=== PATIENT | male | born 1955 | race Caucasian/White ===

== ENCOUNTER 2017-12-18 05:30 | Emergency (ER) | payer OTHER ==
[~2017-12-18] VITALS: Ht 177.8 cm; Wt 147.4 kg
[~2017-12-18 05:30] MED LIST: AMLO5 PO; ASPI325EC PO; Ceftriaxone2 G1 IV; ENOX40I SC; FURO20 PO; METO25 PO; NAPR500 PO; OXYACE5T PO; POTCHL20ER PO
[2017-12-18 05:54] LABS: BASOPHILS ABSOLUTE AUTO 0.06 K/mm3 (0.00-0.23); BASOPHILS PERCENT AUTO 1 % (0-2); EOSINOPHILS ABSOLUTE AUTO 0.36 K/mm3 (0.00-0.68); EOSINOPHILS PERCENT AUTO 4 % (0-6); Hematocrit 45.7 % (37.0-53.0); Hemoglobin 15.6 g/dL (13.5-17.5); IMMATURE GRAN ABSOLUTE AUTO 0.04 K/mm3 (0.00-0.10); IMMATURE GRAN PERCENT AUTO 1 % (0-1); LYMPHOCYTES ABSOLUTE AUTO 2.58 K/mm3 (0.84-5.20); LYMPHOCYTES PERCENT AUTO 31 % (21-46); MONOCYTES ABSOLUTE AUTO 0.48 K/mm3 (0.16-1.47); MONOCYTES PERCENT AUTO 6 % (4-13); Mean Corpuscular HGB 29.9 pg (26.0-34.0); Mean Corpuscular HGB Conc 34.1 g/dL (31.5-36.5); Mean Corpuscular Volume 88 fL (80-100); Mean Platelet Volume 9.7 fL (9.1-12.4); NEUTROPHILS ABSOLUTE AUTO 4.76 K/mm3 (1.96-9.15); NEUTROPHILS PERCENT AUTO 58 % (41-73); Platelet Count 174 K/mm3 (150-400); RDW Coefficient Variation 13.5 % (11.7-14.2); RDW Standard Deviation 43.5 fL (35.1-46.3); Red Blood Cell Count 5.22 M/mm3 (4.30-5.90); White Blood Cell Count 8.28 K/mm3 (4.00-11.30)
[2017-12-18 06:18] LABS: Alanine Aminotransfer (ALT/SGP 97 U/L (12-78); Albumin, Blood 3.6 g/dL (3.4-5.0); Albumin/Globulin Ratio 0.9 (0.8-1.8); Alk Phos 176 U/L (50-136); Anion Gap 17 mmol/L (6-16); Aspartate Aminotrans (AST/SGOT 145 U/L (12-37); Bilirubin, Total 1.4 mg/dL (0.1-1.0); Blood Urea Nitrogen 13 mg/dL (8-24); Bun/Creatinine Ratio 16.1 (12.0-20.0); CO2, Blood 21 mmol/L (21-32); Calcium, Blood 7.6 mg/dL (8.5-10.1); Chloride, Blood 95 mmol/L (98-108); Creatinine, Blood 0.81 mg/dL (0.60-1.20); Glomerular Filtration Rate >60 (60-); Glucose, Blood 158 mg/dL (70-99); Potassium, Blood 3.3 mmol/L (3.5-5.5); Sodium, Blood 133 mmol/L (136-145); Total Protein, Blood 7.6 g/dL (6.4-8.2); Troponin I <0.015 ng/mL (0.000-0.040)
[2017-12-18 06:54] LABS: Magnesium, Blood 1.7 mg/dL (1.6-2.4)
[2017-12-18] MEDS ORDERED: MAGOXI400 PO (08:27)
[2017-12-18] MEDS ORDERED: VITAMIN D5000 UNI1 PO (08:27)
== END 2017-12-18 08:49 | disposition home or self-care (01) ==
LOC: ER 05:30
PROVIDERS: Emergency Medicine
DX: R07.89 Other chest pain (principal); F10.10 Alcohol abuse, uncomplicated; E55.9 Vitamin D deficiency, unspecified; E61.2 Magnesium deficiency; Z79.899 Other long term (current) drug therapy; I10 Essential (primary) hypertension; Z87.891 Personal history of nicotine dependence
CPT/HCPCS: 36415; 71046; 80053; 82306; 83690; 83735; 84443; 84484; 85025; 93005; 93010; 96361; 96374; 99284; J2060; J7030

== ENCOUNTER → 2021-02-02 | Outpatient (CLI) | payer OTHER | END | disposition home or self-care (01) | LOC: LAB SHORT 10:30 → LAB 10:30 | DX: E78.5 Hyperlipidemia, unspecified (principal); I10 Essential (primary) hypertension; R73.03 Prediabetes; R53.83 Other fatigue | CPT/HCPCS: 36415; 80053; 80061; 83036; 84443; 85025 ==

== ENCOUNTER 2021-03-08 16:17 | Inpatient (IN) | payer OTHER, MEDICARE ==
[~2021-03-08] VITALS: Ht 177.8 cm; Wt 126.9 kg
[~2021-03-08 16:17] MED LIST changes: +MAGOXI400 PO; +VITAMIN D5000 UNI1 PO
[2021-03-08] MEDS ORDERED: Lovastatin20 MG PO (18:24)
[2021-03-08 19:06] LABS: BASOPHILS PERCENT AUTO 1 % (0-2); EOSINOPHILS ABSOLUTE AUTO 0.04 K/mm3 (0.00-0.68); EOSINOPHILS PERCENT AUTO 0 % (0-6); Hematocrit 37.2 % (37.0-53.0); IMMATURE GRAN PERCENT AUTO 2 % (0-1); LYMPHOCYTES ABSOLUTE AUTO 2.11 K/mm3 (0.84-5.20); LYMPHOCYTES PERCENT AUTO 11 % (21-46); MONOCYTES ABSOLUTE AUTO 1.06 K/mm3 (0.16-1.47); MONOCYTES PERCENT AUTO 5 % (4-13); Mean Corpuscular Volume 93 fL (80-100); Mean Platelet Volume 10.8 fL (9.1-12.4); NEUTROPHILS PERCENT AUTO 82 % (41-73); NRBC ABSOLUTE 0.03 K/mm3 (0.00-0.02); NRBC Auto 0.1 /100 WBC (0.0-0.2); Platelet Count 394 K/mm3 (150-400); RDW Coefficient Variation 20.3 % (11.7-14.2); RDW Standard Deviation 65.4 fL (35.1-46.3); Red Blood Cell Count 4.02 M/mm3 (4.30-5.90); White Blood Cell Count 20.01 K/mm3 (4.00-11.30)
[2021-03-08 19:28] LABS: Albumin, Blood 2.1 g/dL (3.4-5.0); Albumin/Globulin Ratio 0.4 (0.8-1.8); Bun/Creatinine Ratio 29.9 (12.0-20.0); Calcium, Blood 6.5 mg/dL (8.5-10.1); Creatinine, Blood 1.54 mg/dL (0.60-1.20); Globulin, Blood 5.3 g/dL (2.2-4.0); Potassium, Blood 2.5 mmol/L (3.5-5.5); Total Protein, Blood 7.4 g/dL (6.4-8.2)
[2021-03-08 19:41] LABS: Magnesium, Blood 1.2 mg/dL (1.6-2.4)
[2021-03-08 19:46] LABS: Mean Corpuscular HGB 31.1 pg (26.0-34.0)
[2021-03-08 19:47] LABS: Mean Corpuscular HGB Conc 33.6 g/dL (31.5-36.5)
[2021-03-08 19:50] LABS: Phosphorus, Blood 2.9 mg/dL (2.5-4.9)
[2021-03-08 20:26] LABS: Creatine Kinase MB 20.4 ng/mL (0.0-3.6); Creatine Kinase MB Index 0.3 (0.0-4.0)
[2021-03-08] MEDS ORDERED: CENTRUM SILVER1 EAC2 PO (20:54)
[2021-03-09 04:35] LABS: Alanine Aminotransfer (ALT/SGP 63 U/L (12-78); Albumin, Blood 1.7 g/dL (3.4-5.0); Albumin/Globulin Ratio 0.4 (0.8-1.8); Alk Phos 197 U/L (50-136); Anion Gap 14 mmol/L (6-16); Aspartate Aminotrans (AST/SGOT 324 U/L (12-37); Bilirubin, Total 19.8 mg/dL (0.1-1.0); Blood Urea Nitrogen 43 mg/dL (8-24); Bun/Creatinine Ratio 37.4 (12.0-20.0); CO2, Blood 24 mmol/L (21-32); CPK Creatine Kinase 4527 U/L (39-308); Calcium, Blood 5.5 mg/dL (8.5-10.1); Chloride, Blood 91 mmol/L (98-108); Creatinine, Blood 1.15 mg/dL (0.60-1.20); Globulin, Blood 4.4 g/dL (2.2-4.0); Glomerular Filtration Rate >60 (60-); Glucose, Blood 93 mg/dL (70-99); Potassium, Blood 2.6 mmol/L (3.5-5.5); Sodium, Blood 129 mmol/L (136-145); Total Protein, Blood 6.1 g/dL (6.4-8.2)
--- NOTE | 2021-03-09 05:12 | NUR ---
MITER SAW OPERATOR SUMMARY NEW ADMIT FROM THE ED TONIGHT. ADMITTED FOR RHABDO, FOUND DOWN AT HOME FOR APPROXIMATELY 2 DAYS. PT AAOX3 AND PLEASANT. FAIRLY GOOD HISTORIAN AND CALLS APPROPRIATELY FOR ASSISTANCE. PT BUTTOCKS, BACK OF LEGS, TIFFANY AREA EXTREMELY EXCORIATED WITH SOME FLAKING/PEELING SKIN. SOME LARGE ABRASIONS/SCABS ON BLE WELL THICK DARK COLORED SKIN. BLUE BARRIER CREAM APPLIED TO ALL AREAS. CRITICAL CALCIUM OF 5.5 THIS AM WELL K+ OF 2.6. RECIEVED ORDER FROM DR KIMBROUGH FOR CALCIUM GLUCONATE AND IV KCL TO GIVE THIS AM. PT LIVES ALONE IN AN APARTMENT. PT ALSO REPORTS BINGE DRINKING OFF AND ON FOR YEARS. PT STATES HE HASN'T DRANK IN "ABOUT 30 DAYS" BUT SAYS THAT HE WILL "DRINK REALLY HARD" FOR A FEW WEEKS AT A TIME UP TO 2 PINTS OF WHISKEY A DAY. PT HAS NOT DISPLAYED ANY SIGNS OF WITHDRAWAL THUS FAR. PT IS VERY JAUNDICED, LFT IMPROVED WITH AM LABS. PT TO HAVE VENOUS DUPLEX OF BLE LATER TODAY. VSS, WILL CONTINUE TO MONITOR.
[2021-03-09 05:46] LABS: BASOPHILS PERCENT AUTO 0 % (0-2); LYMPHOCYTES PERCENT AUTO 14 % (21-46); MONOCYTES ABSOLUTE AUTO 0.21 K/mm3 (0.16-1.47); MONOCYTES PERCENT AUTO 6 % (4-13); Mean Corpuscular Volume 91 fL (80-100); Mean Platelet Volume 11.1 fL (9.1-12.4); NRBC ABSOLUTE 0.02 K/mm3 (0.00-0.02); NRBC Auto 0.6 /100 WBC (0.0-0.2); RDW Coefficient Variation 18.4 % (11.7-14.2); RDW Standard Deviation 58.8 fL (35.1-46.3)
[2021-03-09 05:48] LABS: EOSINOPHILS ABSOLUTE AUTO 0.02 K/mm3 (0.00-0.68); EOSINOPHILS PERCENT AUTO 1 % (0-6); IMMATURE GRAN ABSOLUTE AUTO 0.05 K/mm3 (0.00-0.10); IMMATURE GRAN PERCENT AUTO 1 % (0-1); Mean Corpuscular HGB 34.8 pg (26.0-34.0); NEUTROPHILS ABSOLUTE AUTO 2.75 K/mm3 (1.96-9.15); NEUTROPHILS PERCENT AUTO 78 % (41-73)
[2021-03-09 05:49] LABS: Hematocrit 31.5 % (37.0-53.0); Platelet Count 280 K/mm3 (150-400); Red Blood Cell Count 3.45 M/mm3 (4.30-5.90); White Blood Cell Count 17.65 K/mm3 (4.00-11.30)
[2021-03-09 05:51] LABS: Mean Corpuscular HGB Conc 38.1 g/dL (31.5-36.5)
--- NOTE | 2021-03-09 17:11 | NUR ---
SHIFT SUMMARY PT TURNED FOR COMFORT. HAS SEVERE EXCORIATIONS TO BACKS OF LEGS AND BUTTOCKS WITH MILD AREAS IN GROIN AND SKIN FOLDS. VISITOR IN THIS AFTERNOON FOR SHORT TIME. PT REPEATED THAT HE HASN'T HAD A DRINK IN 30 DAYS. NO OBVIOUS WITHDRAWAL SYMPTOMS NOTED. REPORTED SEVERE ACHES AND PAINS WITH MOVEMENT. NO PAIN WHILE LAYING STILL. RECEIVED ORDER TO TORADOL. PT DOZING AFTER RECEIVING IT.
[2021-03-09 17:35] LABS: International Normalized Ratio 1.38; Prothrombin Time Results 14.6 Sec (9.7-11.5)
[2021-03-09 18:14] LABS: Potassium, Blood 2.5 mmol/L (3.5-5.5)
[2021-03-09 18:26] LABS: Calcium, Blood 5.7 mg/dL (8.5-10.1)
[2021-03-10 03:07] LABS: BASOPHILS ABSOLUTE AUTO 0.01 K/mm3 (0.00-0.23); BASOPHILS PERCENT AUTO 0 % (0-2); EOSINOPHILS PERCENT AUTO 2 % (0-6); IMMATURE GRAN ABSOLUTE AUTO 0.24 K/mm3 (0.00-0.10); IMMATURE GRAN PERCENT AUTO 5 % (0-1); LYMPHOCYTES ABSOLUTE AUTO 0.78 K/mm3 (0.84-5.20); LYMPHOCYTES PERCENT AUTO 15 % (21-46); MONOCYTES ABSOLUTE AUTO 0.31 K/mm3 (0.16-1.47); MONOCYTES PERCENT AUTO 6 % (4-13); Mean Corpuscular HGB 35.3 pg (26.0-34.0); Mean Corpuscular HGB Conc 37.5 g/dL (31.5-36.5); Mean Corpuscular Volume 94 fL (80-100); Mean Platelet Volume 10.7 fL (9.1-12.4); NEUTROPHILS ABSOLUTE AUTO 3.77 K/mm3 (1.96-9.15); NEUTROPHILS PERCENT AUTO 72 % (41-73); NRBC ABSOLUTE 0.03 K/mm3 (0.00-0.02); NRBC Auto 0.6 /100 WBC (0.0-0.2); RDW Coefficient Variation 19.4 % (11.7-14.2); RDW Standard Deviation 63.7 fL (35.1-46.3)
[2021-03-10 03:09] LABS: Hemoglobin 10.8 g/dL (13.5-17.5); Red Blood Cell Count 3.06 M/mm3 (4.30-5.90); White Blood Cell Count 10.42 K/mm3 (4.00-11.30)
[2021-03-10 03:10] LABS: Hematocrit 28.8 % (37.0-53.0); Platelet Count 272 K/mm3 (150-400)
[2021-03-10 03:32] LABS: Albumin, Blood 1.6 g/dL (3.4-5.0); Anion Gap 12 mmol/L (6-16); Blood Urea Nitrogen 32 mg/dL (8-24); Bun/Creatinine Ratio 33.5 (12.0-20.0); CO2, Blood 23 mmol/L (21-32); Calcium, Blood 6.1 mg/dL (8.5-10.1); Chloride, Blood 93 mmol/L (98-108); Creatinine, Blood 0.96 mg/dL (0.60-1.20); Glomerular Filtration Rate >60 (60-); Glucose, Blood 153 mg/dL (70-99); Phosphorus, Blood 1.5 mg/dL (2.5-4.9); Potassium, Blood 2.9 mmol/L (3.5-5.5); Sodium, Blood 128 mmol/L (136-145)
[2021-03-10 04:08] LABS: CPK Creatine Kinase 2329 U/L (39-308)
--- NOTE | 2021-03-10 06:13 | NUR ---
SHIFT SUMMARY PT WEAK AND FATIGUED. SKIN SEVERELY EXCORIATED. IN TIFFANY AREA, BOTTOM, AND THIGHS. BARRIER CREAM APPLIED. BLE SKIN FLAKY AND THICK. WOUNDS SCATTERED THROUGHOUT. FREQUENT REPOSITIONING AND TIFFANY CARE COMPLETED THIS EVENING. URINE IS ORANGE IN COLOR. INCONTINENT. SOME BLEEDING FROM RAW SKIN ON BUTTOCKS, TIFFANY AREA, AND FOLDS. PT'S SKIN IS JAUNDICED. PT SLEPT OFF AND ON THROUGHOUT THE NIGHT. AT START OF SHIFT CALCIUM GLUCONATE AND POTASSIUM CHLORIDE INFUSED PER ORDERS. RECHECK ON CALCIUM AND POTASSIUM WAS 6.1 FOR CALCIUM AND 2.9 FOR POTASSIUM THIS AM. PHOSPHORUS WAS ALSO LOW AT 1.5. NOTIFIED DR. KIMBROUGH. NEW ORDERS FOR KPHOS 20 MM AND ANOTHER DOSE OF 1GM CALCIUM GLUCONATE. BOTH HUNG AND INFUSING AT THIS TIME. PT HAD 1 BM THIS EVENING. INCONTINENT. UNFORMED. VITAL SIGNS STABLE. TELEMETRY READING SR IN THE 60'S. WILL CONTINUE TO MONITOR AND REPORT TO DAY RN.
[2021-03-10 11:27] LABS: Magnesium, Blood 1.2 mg/dL (1.6-2.4)
[2021-03-10 18:10] LABS: Albumin, Blood 1.6 g/dL (3.4-5.0); Anion Gap 11 mmol/L (6-16); Blood Urea Nitrogen 21 mg/dL (8-24); Bun/Creatinine Ratio 27.1 (12.0-20.0); CO2, Blood 21 mmol/L (21-32); Calcium, Blood 6.8 mg/dL (8.5-10.1); Chloride, Blood 98 mmol/L (98-108); Creatinine, Blood 0.77 mg/dL (0.60-1.20); Glomerular Filtration Rate >60 (60-); Glucose, Blood 127 mg/dL (70-99); Phosphorus, Blood 1.4 mg/dL (2.5-4.9); Potassium, Blood 3.5 mmol/L (3.5-5.5); Sodium, Blood 130 mmol/L (136-145)
--- NOTE | 2021-03-10 19:32 | NUR ---
PT HAS BEEN QUITE PLEASANT TODAY. NO C/O PAIN. EXCORIATED BUTOCKS DOWN. FROMNT AND BACK. LEGS THICK SCALEY. ENCOURAGED HIIM TO KEEP DRY AND TURN ON SIDES TO ASSIST IN HEALING. SKIN IS JAUNDICED. I CALLED DR [facility]. ORDRES GIVEN AND PLACED. BED IN LOW POSITION, CALL LITE IN REACH, CALL APPROP
[2021-03-11 05:15] LABS: Hematocrit 27.1 % (37.0-53.0); Hemoglobin 10.1 g/dL (13.5-17.5); Mean Corpuscular HGB 35.2 pg (26.0-34.0); Mean Corpuscular HGB Conc 37.3 g/dL (31.5-36.5); Mean Corpuscular Volume 94 fL (80-100); Mean Platelet Volume 10.4 fL (9.1-12.4); NRBC Auto 1.2 /100 WBC (0.0-0.2); Platelet Count 280 K/mm3 (150-400); RDW Coefficient Variation 20.5 % (11.7-14.2); RDW Standard Deviation 67.3 fL (35.1-46.3); Red Blood Cell Count 2.87 M/mm3 (4.30-5.90); White Blood Cell Count 8.21 K/mm3 (4.00-11.30)
[2021-03-11 05:36] LABS: BAND PERCENT MAN 6 % (0-8); BASOPHILS ABSOLUTE MAN 0.08 K/mm3 (0.00-0.23); BASOPHILS PERCENT MAN 1 % (0-2); EOSINOPHILS ABSOLUTE MAN 0.41 K/mm3 (0.00-0.68); EOSINOPHILS PERCENT MAN 5 % (0-6); LYMPHOCYTES ABSOLUTE MAN 2.38 K/mm3 (0.84-5.20); LYMPHOCYTES PERCENT MAN 29 % (21-46); MONOCYTES ABSOLUTE MAN 0.57 K/mm3 (0.16-1.47); MONOCYTES PERCENT MAN 7 % (4-13); NEUTROPHILS ABSOLUTE MAN 4.76 K/mm3 (1.96-9.15); SEG NEUTROPHILS PERCENT MAN 52 % (41-73); TOTAL CELLS COUNTED 100
[2021-03-11 05:41] LABS: Alanine Aminotransfer (ALT/SGP 52 U/L (12-78); Albumin, Blood 1.8 g/dL (3.4-5.0); Albumin/Globulin Ratio 0.4 (0.8-1.8); Alk Phos 267 U/L (50-136); Anion Gap 10 mmol/L (6-16); Aspartate Aminotrans (AST/SGOT 258 U/L (12-37); Blood Urea Nitrogen 16 mg/dL (8-24); Bun/Creatinine Ratio 22.7 (12.0-20.0); CO2, Blood 25 mmol/L (21-32); Calcium, Blood 6.9 mg/dL (8.5-10.1); Chloride, Blood 95 mmol/L (98-108); Creatinine, Blood 0.71 mg/dL (0.60-1.20); Globulin, Blood 4.1 g/dL (2.2-4.0); Glomerular Filtration Rate >60 (60-); Glucose, Blood 135 mg/dL (70-99); Potassium, Blood 2.8 mmol/L (3.5-5.5); Sodium, Blood 130 mmol/L (136-145); Total Protein, Blood 5.9 g/dL (6.4-8.2)
[2021-03-11 06:19] LABS: Magnesium, Blood 1.6 mg/dL (1.6-2.4)
--- NOTE | 2021-03-11 07:39 | NUR ---
SHIFT SUMMARY A/O, ABLE TO MAKE NEEDS KNOWN. COOPERATIVE WITH CARE. CALLS AND ANSWERS QUESTIONS APPROPRIATELY. NO C/O PAIN/DISCOMFORT. CONDOM CATH IN PLACE; DRAINING TO GRAVITY. GREATLY ENCOURAGE TURNING AND REPOSITIONING; HOWEVER, REALLY ENJOYS SITTING MOSTLY UP CENTERED IN BED. STATES MAKES IT EASIER TO SEE TV. VSS/AFEBRILE. RECIEVED IV HYDRATION T/O NIGHT, ABX AND SUPPLEMENTAL ELECTROLYTES. BED REMAINED IN LOWEST POSITION. CALL LIGHT AND BELONGINGS WITHIN REACH. CONTINUE WITH CURRENT PLAN OF CARE. REPORT GIVEN TO ONCOMING RN.
--- NOTE | 2021-03-11 19:46 | NUR ---
SHIFT SUMMARY: NO ACUTE EVENTS TO REPORT THIS SHIFT. PT A&O; CALM AND COOPERATIVE WITH CARE. IV ABX, ALBUMIN, & LR CONTINUING. REPORT GIVEN TO ONCOMING RN.
[2021-03-12 05:32] LABS: Hematocrit 28.9 % (37.0-53.0); Hemoglobin 10.6 g/dL (13.5-17.5); LYMPHOCYTES ABSOLUTE AUTO 2.08 K/mm3 (0.84-5.20); LYMPHOCYTES PERCENT AUTO 21 % (21-46); MONOCYTES ABSOLUTE AUTO 1.01 K/mm3 (0.16-1.47); MONOCYTES PERCENT AUTO 10 % (4-13); Mean Corpuscular HGB 34.9 pg (26.0-34.0); Mean Corpuscular HGB Conc 36.7 g/dL (31.5-36.5); Mean Corpuscular Volume 95 fL (80-100); Mean Platelet Volume 10.5 fL (9.1-12.4); NRBC ABSOLUTE 0.04 K/mm3 (0.00-0.02); NRBC Auto 0.4 /100 WBC (0.0-0.2); Platelet Count 303 K/mm3 (150-400); RDW Coefficient Variation 21.9 % (11.7-14.2); RDW Standard Deviation 71.8 fL (35.1-46.3); Red Blood Cell Count 3.04 M/mm3 (4.30-5.90); White Blood Cell Count 10.04 K/mm3 (4.00-11.30)
[2021-03-12 05:33] LABS: BASOPHILS ABSOLUTE AUTO 0.04 K/mm3 (0.00-0.23); BASOPHILS PERCENT AUTO 0 % (0-2); EOSINOPHILS ABSOLUTE AUTO 0.31 K/mm3 (0.00-0.68); EOSINOPHILS PERCENT AUTO 3 % (0-6); IMMATURE GRAN ABSOLUTE AUTO 1.01 K/mm3 (0.00-0.10); IMMATURE GRAN PERCENT AUTO 10 % (0-1); NEUTROPHILS ABSOLUTE AUTO 5.59 K/mm3 (1.96-9.15); NEUTROPHILS PERCENT AUTO 56 % (41-73)
[2021-03-12 05:47] LABS: Alanine Aminotransfer (ALT/SGP 42 U/L (12-78); Albumin, Blood 2.1 g/dL (3.4-5.0); Albumin/Globulin Ratio 0.6 (0.8-1.8); Alk Phos 247 U/L (50-136); Anion Gap 9 mmol/L (6-16); Aspartate Aminotrans (AST/SGOT 182 U/L (12-37); Bilirubin, Total 12.8 mg/dL (0.1-1.0); Blood Urea Nitrogen 11 mg/dL (8-24); Bun/Creatinine Ratio 17.1 (12.0-20.0); CO2, Blood 25 mmol/L (21-32); CPK Creatine Kinase 346 U/L (39-308); Calcium, Blood 7.3 mg/dL (8.5-10.1); Chloride, Blood 98 mmol/L (98-108); Creatinine, Blood 0.65 mg/dL (0.60-1.20); Globulin, Blood 3.8 g/dL (2.2-4.0); Glomerular Filtration Rate >60 (60-); Glucose, Blood 134 mg/dL (70-99); Sodium, Blood 132 mmol/L (136-145); Total Protein, Blood 5.9 g/dL (6.4-8.2)
[2021-03-12 05:59] LABS: BAND PERCENT MAN 7 % (0-8); BASOPHILS PERCENT MAN 2 % (0-2); EOSINOPHILS PERCENT MAN 3 % (0-6); LYMPHOCYTES PERCENT MAN 19 % (21-46); METAMYELOCYTE PERCENT MAN 2 % (0-0); MONOCYTES PERCENT MAN 5 % (4-13); MYELOCYTE PERCENT MAN 1 % (0-0); NEUTROPHILS ABSOLUTE MAN 6.72 K/mm3 (1.96-9.15); PROMYELOCYTE PERCENT MAN 1 % (0-0); SEG NEUTROPHILS PERCENT MAN 60 % (41-73); TOTAL CELLS COUNTED 100
--- NOTE | 2021-03-12 06:45 | NUR ---
SHIFT SUMMARY A/O, ABLE TO MAKE NEEDS KNOWN. COOPERATIVE WITH CARE. CALLS AND ANSWERS QUESTIONS APPRORIATELY. NO C/O PAIN/DISCOMFORT OVERNIGHT. CONDOM CATH REMAINS IN PLACE; DRAINING TO GRAVITY. CONTINUE TO REINFORCE TURNING AND REPOSITIONING. APPEARED TO REST MUCH OF THE NIGHT. CONTINUED TO RECIEVE IV HYDRATION T/O NIGHT. BED REMAINED IN LOWEST POSITION. CALL LIGHT AND BELONGINGS WITHIN REACH. CONTINUE WITH CURRENT PLAN OF CARE. REPORT GIVEN TO ONCOMING RN.
[2021-03-12 07:10] LABS: HBSAG SCREEN Negative (Negative); HEP A AB, IGM Negative (Negative); HEP B CORE AB, IGM Negative (Negative); HEP B CORE AB, TOT Negative (Negative); HEP C VIRUS AB <0.1 (0.0-0.9)
[2021-03-12 12:09] LABS: SARS-Cov-2 (COVID-19) PCR, MMC NEGATIVE (NEGATIVE)
[2021-03-12] MEDS ORDERED: FOLI1 PO (14:30)
[2021-03-12] MEDS ORDERED: POTCHL20ER PO ×2 (14:31→14:32)
[2021-03-12] MEDS ORDERED: B-1100 M1 PO (14:32)
[2021-03-12] MEDS ORDERED: MAGNESIUM OXID500 MG PO (14:33)
[2021-03-12] MEDS ORDERED: CEPH500 PO (14:33)
[2021-03-12] MEDS ORDERED: CALCIUM 600 +1 EA11 PO (14:33)
--- NOTE | 2021-03-12 18:47 | NUR ---
PATIENT DISCHARGE: PATIENT DISCHARGED FACILITY XFR () THIS SHIFT. MEDICATION RECONCILIATION COMPLETED; MED LIST PROVIDED IN XFR PACKET. PATIENT DEPARTED MEDICAL FLOOR VIA AMBULANCE c WHEELCHAIR AT 1559. REPORT CALLED TO [facility].
== END 2021-03-12 15:58 | DRG 872 ==
LOC: ER 16:17 → ERHOLD 20:22 → MEDS 20:22 → ENPENDDIS 03-12 13:08 → MEDS 03-12 15:58
PROVIDERS: Emergency Medicine; Student in an Organized Health Care Education/Training Program; ADMIT Family Medicine
DX: A41.9 Sepsis, unspecified organism (principal); M62.82 Rhabdomyolysis; Z68.41 Body mass index [BMI] 40.0-44.9, adult; N17.9 Acute kidney failure, unspecified; L03.115 Cellulitis of right lower limb; L03.116 Cellulitis of left lower limb; E87.1 Hypo-osmolality and hyponatremia; E87.2 Acidosis; R65.20 Severe sepsis without septic shock; K70.10 Alcoholic hepatitis without ascites; Z20.822 Contact with and (suspected) exposure to COVID-19; I10 Essential (primary) hypertension; M19.90 Unspecified osteoarthritis, unspecified site; M54.5 Low back pain; E66.01 Morbid (severe) obesity due to excess calories; E86.0 Dehydration; E87.6 Hypokalemia; E83.42 Hypomagnesemia; I87.2 Venous insufficiency (chronic) (peripheral); E83.51 Hypocalcemia; Z96.641 Presence of right artificial hip joint; Z98.890 Other specified postprocedural states; Z79.899 Other long term (current) drug therapy
CPT/HCPCS: 36415; 71045; 76705; 80053; 80069; 80074; 82140; 82310; 82330; 82550; 82553; 83605; 83690; 83735; 84100; 84132; 84145; 85025; 85610; 85730; 86317; 86704; 86708; 86803; 87040; 87340; 93005; 93010; 93970; 96365; 97110; 97162; 97166; 97530; 97535; 99285-25; A9270; G0480; J0610; J0690; J1650; J1885; J3475; J3480; J7030; J7060; J7120; P9046; U0004

== ENCOUNTER 2021-04-02 16:48 | Inpatient (IN) | payer OTHER ==
[~2021-04-02] VITALS: Ht 177.8 cm; Wt 139.0 kg
[~2021-04-02 16:48] MED LIST changes: +B-1100 M1 PO; +CALCIUM 600 +1 EA11 PO; +CENTRUM SILVER1 EAC2 PO; +CEPH500 PO; +FOLI1 PO; +Lovastatin20 MG PO; +MAGNESIUM OXID500 MG PO
[2021-04-02 17:48] LABS: BASOPHILS PERCENT AUTO 1 % (0-2); EOSINOPHILS PERCENT AUTO 0 % (0-6); Hematocrit 34.3 % (37.0-53.0); Hemoglobin 11.7 g/dL (13.5-17.5); IMMATURE GRAN PERCENT AUTO 1 % (0-1); LYMPHOCYTES ABSOLUTE AUTO 1.54 K/mm3 (0.84-5.20); LYMPHOCYTES PERCENT AUTO 10 % (21-46); MONOCYTES ABSOLUTE AUTO 0.81 K/mm3 (0.16-1.47); MONOCYTES PERCENT AUTO 5 % (4-13); Mean Corpuscular HGB 36.8 pg (26.0-34.0); Mean Corpuscular HGB Conc 34.1 g/dL (31.5-36.5); Mean Corpuscular Volume 108 fL (80-100); Mean Platelet Volume 9.8 fL (9.1-12.4); NEUTROPHILS ABSOLUTE AUTO 13.06 K/mm3 (1.96-9.15); NEUTROPHILS PERCENT AUTO 84 % (41-73); Platelet Count 347 K/mm3 (150-400); RDW Coefficient Variation 15.8 % (11.7-14.2); RDW Standard Deviation 62.9 fL (35.1-46.3); Red Blood Cell Count 3.18 M/mm3 (4.30-5.90); White Blood Cell Count 15.61 K/mm3 (4.00-11.30)
[2021-04-02 18:13] LABS: Alanine Aminotransfer (ALT/SGP 46 U/L (12-78); Albumin, Blood 2.5 g/dL (3.4-5.0); Albumin/Globulin Ratio 0.5 (0.8-1.8); Alk Phos 204 U/L (50-136); Anion Gap 20 mmol/L (6-16); Aspartate Aminotrans (AST/SGOT 103 U/L (12-37); Bilirubin, Total 2.7 mg/dL (0.1-1.0); Blood Urea Nitrogen 4 mg/dL (8-24); Bun/Creatinine Ratio 5.2 (12.0-20.0); CO2, Blood 14 mmol/L (21-32); Calcium, Blood 8.1 mg/dL (8.5-10.1); Chloride, Blood 108 mmol/L (98-108); Creatinine, Blood 0.76 mg/dL (0.60-1.20); Glomerular Filtration Rate >60 (60-); Glucose, Blood 324 mg/dL (70-99); Potassium, Blood 2.6 mmol/L (3.5-5.5); Sodium, Blood 142 mmol/L (136-145); Total Protein, Blood 7.5 g/dL (6.4-8.2); Troponin I 0.118 ng/mL (0.000-0.040)
[2021-04-02 18:14] LABS: Creatine Kinase MB 11.1 ng/mL (0.0-3.6); Creatine Kinase MB Index 1.7 (0.0-4.0)
[2021-04-02 18:18] LABS: Source, Urine Clean Catch
[2021-04-02 18:19] LABS: International Normalized Ratio 1.24; Prothrombin Time Results 13.2 Sec (9.7-11.5)
[2021-04-02 18:21] LABS: Magnesium, Blood 1.1 mg/dL (1.6-2.4); Phosphorus, Blood 2.4 mg/dL (2.5-4.9)
[2021-04-02 18:30] LABS: Appearance, Urine Clear (Clear); Bilirubin, Urine Neg (Neg); Blood, Urine 3+ (Neg); Color, Urine Yellow (P-Yellow); Glucose Qualitative, Urine 3+ (Neg); Ketones, Urine Neg (Neg); Leukocyte Esterase, Urine Neg (Neg); Nitrite, Urine Neg (Neg); Protein, Urine 1+ (Neg); Urobilinogen, Urine NORM (Normal)
[2021-04-02 18:41] LABS: Bacteria Few /hpf; Red Blood Cells, Urine 0-2 /hpf (0-2); Squamous Epithelial Cells Rare /hpf (Few); White Blood Cells, Urine Rare /hpf (0-5)
[2021-04-02 18:44] LABS: U Amphetamine Screen Not Detected; U Barbituate Screen Not Detected; U Benzodiazapine Screen Not Detected; U Buprenorphine Screen Not Detected; U Cannabinoids Screen Not Detected; U Cocaine Screen Not Detected; U Methadone Screen Not Detected; U Methamphetamine Screen Not Detected; U Opiates Screen Not Detected; U Oxycodone Screen Not Detected; U Phencyclidine Screen Not Detected; U Propoxyphene Screen Not Detected
[2021-04-02] MEDS ORDERED: DILT120ERA PO (19:44)
--- NOTE | 2021-04-02 22:25 | NUR ---
PT HERE VIA [facility] FROM ER. PT IS ALERT AND ORIENTED. TRANSFERRED PT TO PCU BED WITH SLIDER SHEET AND MULTIPLE STAFF. PT IS MORBIDLY OBESE. PT REPORTS HE HAD BEEN DOWN ON THE GROUND FOR APPX 24 HOURS. PT GIVEN PARTIAL BED BATH PT HAD DIRT AND DEBRIS ON HIS BODY. PT IS ANXIOUS, REPORTS DUE TO MULTIPLE STAFF IN THE ROOM - EXPLAINED EACH PROCESS TO PT IN AN ATTEMPT TO DECREASE HIS ANXIETY. PT DENIES CHEST PAIN, SOB, NAUSEA, OR HEADACHE. PT IS ON RA. 1 FIELD START IV TO RAC, 20G TO LAC, BOTH WNL. REVIEWED CALL LIGHT, SAFETY MEASURES. SEE WOUND PICTURES IN CHART. FLUIDS AT BEDSIDE. JAUNDICE SKIN, AND SCLERA.
[2021-04-03 03:32] LABS: Hematocrit 30.7 % (37.0-53.0); Hemoglobin 10.5 g/dL (13.5-17.5)
[2021-04-03 03:52] LABS: Alanine Aminotransfer (ALT/SGP 42 U/L (12-78); Albumin, Blood 2.3 g/dL (3.4-5.0); Albumin/Globulin Ratio 0.5 (0.8-1.8); Alk Phos 187 U/L (50-136); Anion Gap 16 mmol/L (6-16); Aspartate Aminotrans (AST/SGOT 90 U/L (12-37); Blood Urea Nitrogen 2 mg/dL (8-24); Bun/Creatinine Ratio 3.7 (12.0-20.0); CO2, Blood 17 mmol/L (21-32); Calcium, Blood 7.4 mg/dL (8.5-10.1); Chloride, Blood 102 mmol/L (98-108); Creatinine, Blood 0.54 mg/dL (0.60-1.20); Globulin, Blood 4.5 g/dL (2.2-4.0); Glomerular Filtration Rate >60 (60-); Glucose, Blood 272 mg/dL (70-99); Sodium, Blood 135 mmol/L (136-145); Total Protein, Blood 6.8 g/dL (6.4-8.2)
--- NOTE | 2021-04-03 06:11 | NUR ---
SHIFT SUMMARY - PT HAS BEEN CALLING MULTIPLE TIMES THROUGHOUT THE NIGHT. OCCASIONALLY PT FORGETS WHY HE CALLED WHEN STAFF ENTER. MOST OF THE TIME, PT IS REQUESTING USE OF THE BEDPAN FOR A BM - SEVERAL TIMES WITHOUT SUCCESS, AND REQUEST FOR HOLDING THE URINAL FOR HIM. PT'S HEART RATE TRENDED DOWN AFTER THE METOPROLOL IV GIVEN X1. CIWA WNL X1. PT TOLERATED PO FLUIDS AND SNACKS GIVEN THROUGHOUT THE NIGHT. IV INFUSING WITH LR AT 125 TO LEFT AC IV SITE WITHOUT COMPLICATIONS. PT RECEIVED POTASSIUM IV TO HIS RIGHT PIV SITE - DENIED PAIN OR COMPLICATIONS. FLUIDS AT BEDSIDE. CALL LIGHT WITHIN REACH. BED IN LOW POSITION.
--- NOTE | 2021-04-03 09:07 | NUR ---
PHYSICAN ROUNDS DR JAMES MET WITH THE PATIENT THIS MORNING AND DISCUSSED HIS ALCOHOL USE AND HISTORY WELL COMPLETED AN ASSESSMENT. PT REPORTED DRINKING A 5TH OF WHISKEY DAILY SINCE [employer]. PT HAS AGREED TO LOOK OVER THE OPTIONS FOR REHAB THAT ARE AVAILABLE WITH SOCIAL WORK; DR. JAMES STATED HE WOULD HAVE SOCIAL WORK PREPARE SOME RESOURCES FOR THE PT
[2021-04-03 11:25] LABS: BASOPHILS ABSOLUTE AUTO 0.08 K/mm3 (0.00-0.23); BASOPHILS PERCENT AUTO 1 % (0-2); EOSINOPHILS ABSOLUTE AUTO 0.14 K/mm3 (0.00-0.68); EOSINOPHILS PERCENT AUTO 2 % (0-6); Hematocrit 30.6 % (37.0-53.0); Hemoglobin 10.6 g/dL (13.5-17.5); IMMATURE GRAN ABSOLUTE AUTO 0.02 K/mm3 (0.00-0.10); IMMATURE GRAN PERCENT AUTO 0 % (0-1); LYMPHOCYTES ABSOLUTE AUTO 1.95 K/mm3 (0.84-5.20); LYMPHOCYTES PERCENT AUTO 21 % (21-46); MONOCYTES ABSOLUTE AUTO 0.57 K/mm3 (0.16-1.47); MONOCYTES PERCENT AUTO 6 % (4-13); Mean Corpuscular HGB 36.4 pg (26.0-34.0); Mean Corpuscular HGB Conc 34.6 g/dL (31.5-36.5); Mean Corpuscular Volume 105 fL (80-100); Mean Platelet Volume 9.8 fL (9.1-12.4); NEUTROPHILS ABSOLUTE AUTO 6.76 K/mm3 (1.96-9.15); NEUTROPHILS PERCENT AUTO 71 % (41-73); Platelet Count 242 K/mm3 (150-400); RDW Coefficient Variation 15.1 % (11.7-14.2); RDW Standard Deviation 58.1 fL (35.1-46.3); Red Blood Cell Count 2.91 M/mm3 (4.30-5.90); White Blood Cell Count 9.52 K/mm3 (4.00-11.30)
[2021-04-03 13:23] LABS: Magnesium, Blood 1.3 mg/dL (1.6-2.4); Potassium, Blood 3.3 mmol/L (3.5-5.5)
--- NOTE | 2021-04-03 17:46 | NUR ---
SHIFT SUMMARY PT HAS BEEN COOPERATIVE TODAY. PT HAS BEEN IN STABLE ALCOHOL WITHDRAWAL, SYMPTOMS RANGING FROM MILD HEADACHE, NAUSEA, TREMORS AND ANXIETY. PT HAS BEEN MEDICATED PER EMAR. PT REPORTS FEELING BETTER THIS EVENING THAN HE DID LATE MORNING TODAY. PT HAS STRUGGLED TO USE THE URINAL INDEPENDENTLY BUT IS CONTINENT WITH BOTH URINE AND STOOL. PT HAS HAD A FULL LINEN CHANGE AND BED BATH TODAY. PT'S MAG AND K+ ARE STILL LOW AND REPLACEMENT HAS BEEN GIVEN TODAY WITH REDRAWS SCHEDULED. PT CONTINUES TO RECEIVE IV FLUIDS. PT HAS REDNESS BLISTERING AND OPEN WOUNDS BLE, PICTURES HAVE BEEN TAKE, THEY HAVE BEEN MARKED, AND DRESSED WITH WOUND CARE ORDERS ADDED IN. VS STABLE, PT ON RA. PT IS HAVING DINNER AT THIS TIME
--- NOTE | 2021-04-03 20:26 | NUR ---
ASSUMED CARE PT IS ALERT AND ORIENTED. BP AND HR ARE ELEVATED. PT DENIES CHEST PAIN OR SOB. PT ON ROOM AIR WITH SATS ABOVE 93%. PT USING URINAL AT BEDSIDE. CIWA OF 7. CALL LIGHT IS WITHIN REACH. WILL CONTINUE TO MONITOR.
[2021-04-04 03:54] LABS: BASOPHILS ABSOLUTE AUTO 0.05 K/mm3 (0.00-0.23); BASOPHILS PERCENT AUTO 1 % (0-2); EOSINOPHILS ABSOLUTE AUTO 0.36 K/mm3 (0.00-0.68); EOSINOPHILS PERCENT AUTO 4 % (0-6); Hematocrit 29.5 % (37.0-53.0); Hemoglobin 10.2 g/dL (13.5-17.5); IMMATURE GRAN ABSOLUTE AUTO 0.04 K/mm3 (0.00-0.10); IMMATURE GRAN PERCENT AUTO 0 % (0-1); LYMPHOCYTES ABSOLUTE AUTO 1.81 K/mm3 (0.84-5.20); LYMPHOCYTES PERCENT AUTO 18 % (21-46); MONOCYTES ABSOLUTE AUTO 0.59 K/mm3 (0.16-1.47); MONOCYTES PERCENT AUTO 6 % (4-13); Mean Corpuscular HGB 36.4 pg (26.0-34.0); Mean Corpuscular HGB Conc 34.6 g/dL (31.5-36.5); Mean Corpuscular Volume 105 fL (80-100); NEUTROPHILS ABSOLUTE AUTO 7.03 K/mm3 (1.96-9.15); NEUTROPHILS PERCENT AUTO 71 % (41-73); Platelet Count 224 K/mm3 (150-400); RDW Standard Deviation 58.4 fL (35.1-46.3); White Blood Cell Count 9.88 K/mm3 (4.00-11.30)
[2021-04-04 04:25] LABS: Alanine Aminotransfer (ALT/SGP 36 U/L (12-78); Albumin, Blood 2.2 g/dL (3.4-5.0); Albumin/Globulin Ratio 0.5 (0.8-1.8); Alk Phos 189 U/L (50-136); Anion Gap 7 mmol/L (6-16); Aspartate Aminotrans (AST/SGOT 76 U/L (12-37); Blood Urea Nitrogen 3 mg/dL (8-24); Bun/Creatinine Ratio 4.3 (12.0-20.0); CO2, Blood 24 mmol/L (21-32); Calcium, Blood 7.7 mg/dL (8.5-10.1); Chloride, Blood 105 mmol/L (98-108); Globulin, Blood 4.5 g/dL (2.2-4.0); Glomerular Filtration Rate >60 (60-); Glucose, Blood 159 mg/dL (70-99); Magnesium, Blood 1.4 mg/dL (1.6-2.4); Potassium, Blood 3.6 mmol/L (3.5-5.5); Sodium, Blood 136 mmol/L (136-145); Total Protein, Blood 6.7 g/dL (6.4-8.2)
--- NOTE | 2021-04-04 05:50 | NUR ---
CALLED DR ESPINAL REGARDING PT MAG OF 1.4. WILL PUT IN ORDERS.
--- NOTE | 2021-04-04 06:41 | NUR ---
SHIFT SUMMARY PT HAS BEEN ALERT. PT BP AND HEART RATE HAVE BEEN ELEVATED T/O NIGHT. ON ROOM AIR WITH SATS ABOVE 92%. PT DENIES CHEST PAIN OF SOB. PT HAS BEEN VERY RESTLESS AND ANXIOUS T/O NIGHT. PT STATES THAT HE HAS BEEN HAVING "WEIRD DREAMS FROM ANOTHER WORLD." IN THE DREAMS HE WAS TOLD TO TAKE EVERYTHING OFF AND HE DISROBED. PT HAS HAD SOME AGITATION ABOUT BED, WIRES AND TUBES AND THE USE OF A URINAL. PT'S CIWAS HAVE RANGED FROM 7-16. HE HAS BEEN MEDICATED PER EMAR. PT STS THAT HIS ARMS ARE VERY WEAK THEREFORE HE IS A MAX ASSIST FOR ROLLING AND REPOSITIONING. PT HAS WOUNDS THAT ARE IN FILE.
--- NOTE | 2021-04-04 09:56 | NUR ---
0745-UPON ENTERING THE ROOM PT BREATHING HEAVY, WORK OF BREATHING LABORED, WITH ACCESSORY MUSCLE USE AND SUBSTERNAL RETRACTIONS. ORAL SUCTIONING PERFORMED, DEEP SUCTIONING PERFORMED WITH LIMITED RESPONSE FORM PATIENT, ORAL CARE DONE WITH RETURN OF FOOD PARTICLES. ASKED IF HE WAS HUNGRY, HE SAID NO. ASKED IF HE HAD HEADACHE, NO. ASKED IF HE WAS NAUSEATED, YES. CONDOM CATH IN PLACE WITH GOOD RETURN, LEGS WRAPPED IN DRESSINGS FROM WOUND CARE YESTERDAY. 0830-INTO ROOM WITH TRISTA FINK PT ASKING ABOUT EATING THE OATMEAL, ATTEMPTS MADE TO EAT. HE IS MORE ALERT, ANSWERING QUESTIONS. ASKED ABOUT HALLUCINATIONS, DENIES ANY FURTHER SINCE THE MORNING. 0900- IN ROOM WITH PT RESPONDING MUCH IMPROVED, ASKING QUESTIONS, ANSWERING QUESTIONS. LOOKING FOR TV REMOTE. ASKING FOR LEGS TO BE COVERED. STATES AGAIN THAT HE FELT LIKE "IT WAS GOING TO BE A SHIT SHOW", BUT DENIES ANY FURTHER HALLUCINATIONS.
--- NOTE | 2021-04-04 11:32 | NUR ---
ANU IS ALERT AND COOPERATIVE, HE IS APPROPRIATE. HE SEEMS TO BE WORKING SO HARD TO BREATHE. HE SAID THAT HE FEELS THAT WAY WELL. HIS OXYGEN SATS ARE GOOD. WILL CONTINUE TO MONITOR.
--- NOTE | 2021-04-04 12:26 | NUR ---
CALL IN TO AT 1150 RE: PT'S BREATHING/WORK OF BREATHING. SHE ORDERED RT TO EVALUATE AND GIVE A DUO NEB. DUO NEB GIVEN BY RT BETTY. AUDIBLE WHEEZES AND RESP.RATE IN THE 30'S. PT TOLERATED THE TREATMENT WELL. HE WAS ABLE TO COUGH AND BREATHE A BIT SLOWER. AUDIBLE WHEEZES STILL HEARD, PT TRYING TO FEED SELF. HE IS ASKING WHY HE IS "SLOW". HE COMPLAINS ABOUT HIS HAND/EYE COORDINATION BEING OFF. HE REFUSES MY HELP FOR EATING.
--- NOTE | 2021-04-04 12:48 | NUR ---
PT FINALLY RESORTED TO LETTING ME HELP HIM EAT HIS LUNCH. HE ASKED ME IF HE HAS ALZHEIMER'S. I TOLD HIM THAT WE ARE CONCERNED FOR HIS ALCOHOL WITHDRAWAL, HE NODDED IN AGREEMENT. I ASKED HIM IF HE THOUGHT HE WAS EXPERIENCING ALZHEIMER'S. HE SAID THAT HE JUST WANTS TO KNOW WHY HE IS SO "LOW". HE STRUGGLED WITH GETTING HIS HAND TO HOLD THE UTENSILS, WELL KEEPING THE FOOD ON THE UTENSIL, THEN REACHING HIS MOUTH WITH THE FOOD BEFORE LOSING IT ON TO HIS CHEST. BY THE TIME WE FINISHED EATING HE WAS DRIFTING OFF TO SLEEP BETWEEN BITES. HE CONTINUES TO WORK HARD TO BREATHE, SEEMS TO BE SLIGHTLY BETTER AFTER THE DUONEB.
--- NOTE | 2021-04-04 18:30 | NUR ---
UPDATE: THIS RN CALLED DR. WADE TO GIVE AN UPDATE ON PATIENTS RESPIRATORY STATUS. PT IS VERY DYSPNEC AT REST, IS ONLY ABLE TO SPEAK 1-2 WORDS AND THEN HAVING TO BREATHE IN. HE IS USING ACCESSORY MUSCLES FOR BREATHING. BIOX IS WNL ON RA. DR. WADE ORDERED SLIGHT DECREASE IN IVF DOWN TO 100 ML/HR AND A C-PAP/BI-PAP PROTOCOL.
--- NOTE | 2021-04-04 19:24 | NUR ---
ANU HAS DONE WELL THIS SHIFT, HIS MENTATION HAS BECOME MORE CLEAR THROUGHOUT THE DAY. HE HAS BETTER COLOR AND IS MORE INVOLVED IN HIS CARE. HIS BREATHING CONTINUES TO BE LABORED, FULL OF EFFORT. LESS SUBCOSTAL BREATHING, CONTINUES WITH AUDIBLE WHEEZES. DENIES ANY DIFFICULTY. HIS IV FLUIDS CONTINUED THROUGHOUT THE SHIFT, CONDOM CATH IN PLACE WITHOUT ANY INCIDENT. LEG WOUNDS DRESSED WITH COBAN. ABRASIONS PRESENT ON ELBOWS AND KNEES. ABDOMEN WITH FOLLICULITIS. ATTEMPTS BY THIS RN AND BY PATIENT TO MAKE IT BETTER WITH THE ALOE, DIDN'T SEEM TO HELP. PT CONTINUES WITH DIFFICULTY WITH HAND/EYE COORDINATION AND LET ME FEED HIM.
--- NOTE | 2021-04-04 19:27 | NUR ---
ASSUMED PT CARE FROM STONEY HATHAWAY PT LYING IN BED. STONEY ROWLEY AT BEDSIDE PERFORMING WOUND CARE TO BLE'S. PT IS ALERT AND ORIENTED X3; SLOW TO RESPOND. PT NOTED TO HAVE AUDIBLE WHEEZES WHILE LYING IN BED. EXPIRATORY WHEEZES NOTED TO BILATERAL UPPER LOBES, CLEAR LUNG SOUNDS TO BILATERAL LOWER LOBES. RR 26. HR IRREGULAR 110-130'S; PER BECK OPERATOR RHYTHM IS NSR WITH PAC'S; HOWEVER, WITH THE IRREGULARITY OF HR IT APPEARS HE MAY BE IN AFIB WITH RVR. LR INFUSING AT 100MLS/HR; HOWEVER, D/T AUDIBLE WHEEZING AND WORK OF BREATHING PLACED ON STANDBY UNTIL I CAN OBTAIN FURTHER ORDERS REGARDING RESPIRATORY STATUS. PER REPORT RT IS AWARE OF CPAP/BIPAP PROTOCOL. PT APPEARS VERY EDEMATOUS T/O. CONDOM CATH IN PLACE WITH DARK SUZE COLORED URINE. SBP IS 130'S. SPO2 AT 96% ON RA. TEMP 100.2. PT DENIES PAIN AT THIS TIME. BLE'S HAVE VERY LEATHERY TYPE SKIN WITH SCATTERED OPEN AREAS SECONDARY TO CELLULITIS. ABDOMEN HAS A LARGE RASH THAT IS HOT TO THE TOUCH. PT IS RECEIVING ROCEPHIN SECONDARY TO CELLULITIS. WILL CONTINUE TO MONITOR.
--- NOTE | 2021-04-04 20:49 | NUR ---
CALL OUT TO [facility]OWER UPDATED REGARDING RESPIRATORY STATUS WITH IV FLUIDS STILL INFUSING AT 100MLS/HR. NEW ORDERS FOR CXR TO ASSESS FOR VOLUME OVERLOAD. CONTINUE IV FLUIDS UNTIL HE LOOKS OVER CXR.
--- NOTE | 2021-04-05 01:39 | NUR ---
UPDATE PT WOKE UP AGITATED AND PULLING ON THINGS. STATED PEOPLE WERE RUMMAGING THROUGH HIS THINGS AND SHOVING BLANKETS IN BAGS. PT DENIES AUDITORY HALLUCINATIONS. PT FEELS HOT TO THE TOUCH. BEAD OF SWEAT TO FOREHEAD. TREMORS WITH ARMS EXTENDED. PT DENIES N/V AND HEADACHE. STATES HE FEELS MILDLY ANXIOUS. PT REMOVED CPAP MASK AND STATED HE DIDN'T ASK FOR THAT TO BE PUT ON. PT INFORMED THAT IT WAS PLACED EARLIER AND HE HAS BEEN TOLERATING IT ALL SHIFT. PT STATES THAT WAS BECAUSE HE WAS SLEEPING. INFORMED PT THAT THE PURPOSE OF THE MASK/CPAP WAS FOR WHEN HE WAS SLEEPING. CIWA SCORE OF 14. MEDICATED WITH 50MG OF LIBRIUM AND 2MG OF ATIVAN.
--- NOTE | 2021-04-05 04:42 | NUR ---
END OF SHIFT SUMMARY CIWA SCORES BETWEEN 8-14 THIS SHIFT. MEDICATED WITH A TOTAL OF 50MG OF LIBRIUM AND 6MG OF ATIVAN. SEE PREVIOUS NOTE REGARDING PT WAKING UP AGITATED. RESPIRATORY PATTERN APPEARED IMPROVED AFTER HE WAS COMPLIANT WITH WEARING CPAP; HOWEVER, SECOND HALF OF SHIFT PT DID NOT TOLERATE AND REFUSED TO WEAR IT. HE DID REQUIRE 2L OF OXYGEN D/T OXYGEN SATURATIONS DROPPING TO 82% ON RA. AFTER PT REMOVED CPAP HE HAD AUDIBLE WHEEZING NOTED AGAIN. RR >20 ALL SHIFT. VSS, SEE FLOWSHEET. PT REQUIRES A LOT OF ENCOURAGEMENT FOR REPOSITIONING. LR CONTINUES TO INFUSE AT 100ML/HR. WILL CONTINUE TO MONITOR UNTIL REPORT IS HANDED OFF TO ONCOMING RN.
[2021-04-05 08:41] LABS: Albumin, Blood 2.2 g/dL (3.4-5.0); Anion Gap 6 mmol/L (6-16); Blood Urea Nitrogen 4 mg/dL (8-24); Bun/Creatinine Ratio 6.1 (12.0-20.0); CO2, Blood 27 mmol/L (21-32); Calcium, Blood 7.9 mg/dL (8.5-10.1); Chloride, Blood 107 mmol/L (98-108); Creatinine, Blood 0.66 mg/dL (0.60-1.20); Glomerular Filtration Rate >60 (60-); Glucose, Blood 144 mg/dL (70-99); Phosphorus, Blood 3.4 mg/dL (2.5-4.9); Potassium, Blood 3.6 mmol/L (3.5-5.5); Sodium, Blood 140 mmol/L (136-145)
[2021-04-05 08:50] LABS: BASOPHILS ABSOLUTE AUTO 0.04 K/mm3 (0.00-0.23); BASOPHILS PERCENT AUTO 1 % (0-2); EOSINOPHILS ABSOLUTE AUTO 0.41 K/mm3 (0.00-0.68); EOSINOPHILS PERCENT AUTO 6 % (0-6); Hematocrit 32.2 % (37.0-53.0); Hemoglobin 10.6 g/dL (13.5-17.5); IMMATURE GRAN ABSOLUTE AUTO 0.05 K/mm3 (0.00-0.10); IMMATURE GRAN PERCENT AUTO 1 % (0-1); LYMPHOCYTES PERCENT AUTO 26 % (21-46); MONOCYTES ABSOLUTE AUTO 0.49 K/mm3 (0.16-1.47); MONOCYTES PERCENT AUTO 7 % (4-13); Mean Corpuscular HGB 36.3 pg (26.0-34.0); Mean Corpuscular HGB Conc 32.9 g/dL (31.5-36.5); Mean Platelet Volume 9.9 fL (9.1-12.4); NEUTROPHILS ABSOLUTE AUTO 4.39 K/mm3 (1.96-9.15); NEUTROPHILS PERCENT AUTO 60 % (41-73); Platelet Count 203 K/mm3 (150-400); RDW Coefficient Variation 15.1 % (11.7-14.2); RDW Standard Deviation 61.3 fL (35.1-46.3); Red Blood Cell Count 2.92 M/mm3 (4.30-5.90); White Blood Cell Count 7.28 K/mm3 (4.00-11.30)
[2021-04-05 08:53] LABS: Mean Corpuscular Volume 110 fL (80-100)
--- NOTE | 2021-04-05 17:40 | NUR ---
SHIFT SUMMARY; ASSUMED CARE AT 0700, REPORT FROM STONEY SEPULVEDA. PERIODICALLY CONFUSED DURING SHIFT DUE TO ETOH WITHDRAWL. CIWA ORDERS IN PLACE. MEDICATED PER EMAR. WEAKNESS TO ARMS AND LEGS, SLIGHT TREMOR FELT IN HANDS. BLE WOUND CARE COMPLETE YESTERDAY. UNWRAPPED AND REWRAPPED BY FILM MOUNTER FOR DOCTOR ASSESMENT. REDNESS IMPROVED, CAP REFILL <3, PEDAL PULSE PALPABLE BILATERALLY. Q2 REPOSITIONING THROUGHOUT SHIFT AND MEAL ASSISTANCE NEEDED. A/A/OX3. 2L O2 VIA NC AND CPAP WHILE ASLEEP. CONDOM CATH IN PLACE DRAINING CLEAR YELLOW URINE. BED BATH AND GOWN CHANGE TODAY. WILL CONTINUE TO TREAT AND MONITOR UNTIL CHANGE OF SHIFT.
[2021-04-06 05:00] LABS: Anion Gap 6 mmol/L (6-16); Blood Urea Nitrogen 4 mg/dL (8-24); Bun/Creatinine Ratio 6.3 (12.0-20.0); CO2, Blood 27 mmol/L (21-32); Calcium, Blood 8.2 mg/dL (8.5-10.1); Chloride, Blood 108 mmol/L (98-108); Creatinine, Blood 0.63 mg/dL (0.60-1.20); Glomerular Filtration Rate >60 (60-); Glucose, Blood 127 mg/dL (70-99); Potassium, Blood 3.7 mmol/L (3.5-5.5); Sodium, Blood 141 mmol/L (136-145)
--- NOTE | 2021-04-06 06:09 | NUR ---
SHIFT SUMMARY PT LETHARGIC T/O NIGHT, DIAPHORETIC, CONFUSED AT TIMES. CIWA 8 WITH MEDICATIONS PER PRN ORDER FOR WITHDRAWAL. AUDIBLE UPPER AIRWAY WHEEZE LSCTA IN UPPER BASES, DIMINISHED IN LOWER. ONE EPISODE OF INCONTINENCE DUE TO DISPLACEMENT OF CONDOM CATH. CHANGED AND REAPPLIED WITHOUT FURTHER INCIDENT. PT REPOSITIONED Q2 T/O SHIFT. SINUS, SINUS TACH 90'S-100'S. PT HAD X1 SMALL BM IN BEDPAN. CONDOME PERKINS DRAINING DARK YELLOW URINE, PT HAS GOOD PO INTAKE WITH SOME COUGHING T/O NIGHT. SALINE LOCKED.
--- NOTE | 2021-04-06 17:08 | NUR ---
SHIFT SUMMARY PT ALERT AND ORIENTED TO SELF, PLACE, AND FOLLOWING DIRECTIONS. PT FALLS ASLEEP IF NO ONE IS IN THE ROOM. PT LETHARGIC MOST OF SHIFT, BUT DID GET AGITATED ABOUT 1300 WITH CIWA OF 8. VS STABLE. O2 SATS HAVE BEEN ABOVE 90% ON 2L NC. PT ABLE TO TITRATE TO ROOM AIR WHILE AWAKE, BUT NEEDS 2L NC WHILE SLEEPING. BP STABLE. HR HAS BEEN SR TO ST. PT DENIES ANY PAIN. PT RECEIVED A BED BATH THIS SHIFT AND WOUNDS TO BLE WERE CLEANED AND REDRESSED. PT HAS BEEN REPOSITIONED Q2H. WILL CONTINUE TO MONITOR AND REPORT TO ONCOMING RN. CALL LIGHT IN REACH.
--- NOTE | 2021-04-07 05:25 | NUR ---
DOCTOR CALL CALL PLACED TO DR ESPINAL QUESTIONING IF FURTHER LABS ARE NEEDED THIS AM, NO NEW ORDERS.
[2021-04-07 06:38] LABS: Alanine Aminotransfer (ALT/SGP 25 U/L (12-78); Albumin, Blood 2.2 g/dL (3.4-5.0); Albumin/Globulin Ratio 0.5 (0.8-1.8); Alk Phos 184 U/L (50-136); Anion Gap 6 mmol/L (6-16); Aspartate Aminotrans (AST/SGOT 43 U/L (12-37); Blood Urea Nitrogen 4 mg/dL (8-24); Bun/Creatinine Ratio 6.8 (12.0-20.0); CO2, Blood 29 mmol/L (21-32); Calcium, Blood 8.2 mg/dL (8.5-10.1); Chloride, Blood 103 mmol/L (98-108); Creatinine, Blood 0.58 mg/dL (0.60-1.20); Globulin, Blood 4.5 g/dL (2.2-4.0); Glomerular Filtration Rate >60 (60-); Glucose, Blood 111 mg/dL (70-99); Potassium, Blood 3.4 mmol/L (3.5-5.5); Sodium, Blood 138 mmol/L (136-145); Total Protein, Blood 6.7 g/dL (6.4-8.2)
--- NOTE | 2021-04-07 06:47 | NUR ---
SHIFT SUMMARY PT AOX3 T/O SHIFT. ON 2 L VIA NC T/O NIGHT. SATS MAINTAINED GREATER THAN 90%. PT SLEPT FOR MOST OF NIGHT. SINUS-SINUS TACH 80'S-120'S. MEDICATED WITH ORDERED 5 MG IV LOPRESSOR FOR HR ABOVE 120 PER ORDER. PT REPOSITIONED T/O NIGHT FOR COMFORT. ENCOURAGED TO Q2 TURN. PT DID NOT TOLERATE TURNS DUE TO WANTING TO LAY FLAT. PT C/O REGARDING NPO ORDER. THIS RN REINFORCES NEED FOR PT TO BE NPO UNTIL REEVALUATED IN AM BY SPEECH THERAPY. PT VERBALIZED UNDERSTANDING. PT ENCOURAGED TO USE CPAP, REFUSED. CONDOM CATH CHANGED AND DRAINED YELLOW-SUZE URINE T/O SHIFT.
--- NOTE | 2021-04-07 12:25 | NUR ---
PHYSICIAN UPDATED PHYSICIAN NOTIFIED OF PT'S EDEMA IN LIMBS AND UPPER CLAVICLE AREA. RECOMMENDED THE IV FLUIDS TO BE STOPPED AT THIS TIME. PHYSICIAN ORDERS TO HAVE FLUIDS STOPPED AND TO MONITOR FOR RESPIRATORY DISTRESS.
--- NOTE | 2021-04-07 18:39 | NUR ---
SHIFT SUMMARY PT ALERT AND ORIENTED X 4. HR STABLE. BP STABLE. NO CP OR PRESSURE. PT BR, REFUSED Q [address] FOR INCONTINENCE OF STOOL. CONDOM CATH IN PLACE TO GRAVITY DRAIN. OXYGEN SATURATION MAINTAINED ABOVE 92% ON 3 L OF OXYGEN VIA NC. DRESSINGS CHANGED TODAY BY AMRIK John RN PER PHYSICIAN ORDER. WILL CONT TO MONITOR UNTIL REPORT GIVEN TO NIGHTSHIFT RN.
[2021-04-08 04:21] LABS: BASOPHILS ABSOLUTE AUTO 0.04 K/mm3 (0.00-0.23); BASOPHILS PERCENT AUTO 1 % (0-2); EOSINOPHILS ABSOLUTE AUTO 0.26 K/mm3 (0.00-0.68); EOSINOPHILS PERCENT AUTO 4 % (0-6); Hematocrit 33.8 % (37.0-53.0); Hemoglobin 11.4 g/dL (13.5-17.5); IMMATURE GRAN ABSOLUTE AUTO 0.02 K/mm3 (0.00-0.10); IMMATURE GRAN PERCENT AUTO 0 % (0-1); LYMPHOCYTES ABSOLUTE AUTO 1.88 K/mm3 (0.84-5.20); LYMPHOCYTES PERCENT AUTO 27 % (21-46); MONOCYTES ABSOLUTE AUTO 0.82 K/mm3 (0.16-1.47); MONOCYTES PERCENT AUTO 12 % (4-13); Mean Corpuscular HGB 36.4 pg (26.0-34.0); Mean Corpuscular HGB Conc 33.7 g/dL (31.5-36.5); Mean Corpuscular Volume 108 fL (80-100); Mean Platelet Volume 9.8 fL (9.1-12.4); NEUTROPHILS ABSOLUTE AUTO 3.83 K/mm3 (1.96-9.15); NEUTROPHILS PERCENT AUTO 56 % (41-73); Platelet Count 170 K/mm3 (150-400); RDW Coefficient Variation 14.6 % (11.7-14.2); RDW Standard Deviation 58.7 fL (35.1-46.3); Red Blood Cell Count 3.13 M/mm3 (4.30-5.90); White Blood Cell Count 6.85 K/mm3 (4.00-11.30)
[2021-04-08 04:35] LABS: Alanine Aminotransfer (ALT/SGP 21 U/L (12-78); Albumin, Blood 2.2 g/dL (3.4-5.0); Albumin/Globulin Ratio 0.5 (0.8-1.8); Alk Phos 202 U/L (50-136); Anion Gap 5 mmol/L (6-16); Aspartate Aminotrans (AST/SGOT 45 U/L (12-37); Bilirubin, Total 1.8 mg/dL (0.1-1.0); Blood Urea Nitrogen 4 mg/dL (8-24); Bun/Creatinine Ratio 6.6 (12.0-20.0); CO2, Blood 31 mmol/L (21-32); Calcium, Blood 8.2 mg/dL (8.5-10.1); Chloride, Blood 101 mmol/L (98-108); Globulin, Blood 4.7 g/dL (2.2-4.0); Glomerular Filtration Rate >60 (60-); Glucose, Blood 136 mg/dL (70-99); Potassium, Blood 3.3 mmol/L (3.5-5.5); Sodium, Blood 137 mmol/L (136-145); Total Protein, Blood 6.9 g/dL (6.4-8.2)
--- NOTE | 2021-04-08 05:21 | NUR ---
SHIFT SUMMARY PT ALERT AND ORIENTED. VS STABLE. O2 SATS REMAIN ABOVE 90% ON 2L NC. BP STABLE. PT ONLY COMPLAINS OF PAIN WITH REPOSITIONING. CONDOM CATH IN PLACE DUE TO INCONTINENCE. NO BM THIS SHIFT. WOUNDS TO BLE DRSNG CHANGED DURING DAYSHIFT ARE INTACT. WILL CONTINUE TO MONITOR AND REPORT TO ONCOMING RN. CALL LIGHT IN REACH.
--- NOTE | 2021-04-08 09:19 | NUR ---
UPDATE PHYSICIAN VERBAL ORDER FOR PT TO BE TRANSFERRED TO MEDICAL FLOOR WITH NO TELE. HOME O2 EVAL ORDERED PER PHYSICIAN.
--- NOTE | 2021-04-08 11:16 | NUR ---
REPORT GIVEN REPORT GIVEN TO STONEY GARDNER. PT TO BE TRANSPORTED TO ROOM 334 BY BED WITH ALL BELONGINGS.
--- NOTE | 2021-04-08 17:46 | NUR ---
SHIFT SUMMARY PATIENT PCU TRANSFER FOR ALCOHOL WITHDRAWAL. PT WENT TO LIFT ROOM DUE TO BEING AN HEAVY TWO PERSON ASSIST. PT WORKED WITH P.T. TODAY AND RECOMMENDED THAT HE START TO GET UP IN A CHAIR BECAUSE HE IS VERY DECONDITIONED. RECEIVING IV ANTIBIOTICS FOR BLE CELLULITIS. ON 3 LITERS O2 VIA NC. CONDOM CATH IN PLACE. PT IS VERY FATIGUED AND REQUIRED SUPERVISION WHILE EATING. VSS. WILL REPORT TO RADHA LUA.
--- NOTE | 2021-04-09 06:33 | NUR ---
SHIFT SUMMARY PATIENT ALERT AND ORIENTED X3. REMAINS SLOW AND LETHARGIC WITH SOME SLURRING OF HIS WORDS WHEN TIRED. NO ACUTE ISSUES NOTED OVERNIGHT. IV PATENT AND FLUSHED. BED IN LOWEST POSITION WITH WHEELS LOCKED AND ALARM ON. CALL LIGHT WITHIN REACH. REPORT GIVEN TO ONCCOLEMAN LUA.
[2021-04-09 08:39] LABS: Anion Gap 5 mmol/L (6-16); Blood Urea Nitrogen 4 mg/dL (8-24); Bun/Creatinine Ratio 7.6 (12.0-20.0); CO2, Blood 30 mmol/L (21-32); Calcium, Blood 8.3 mg/dL (8.5-10.1); Chloride, Blood 101 mmol/L (98-108); Creatinine, Blood 0.53 mg/dL (0.60-1.20); Glomerular Filtration Rate >60 (60-); Glucose, Blood 118 mg/dL (70-99); Potassium, Blood 3.4 mmol/L (3.5-5.5); Sodium, Blood 136 mmol/L (136-145)
--- NOTE | 2021-04-09 11:50 | NUR ---
HEART RATE: PATIENTS HEART RATE CONTINUES TO BE ANYWHERE BETWEEN LOW 90'S AND 121. IT HAS NOT BEEN SUSTAINED AT 120. PATIENT CONTINUES TO DENY CHEST PAIN, CHEST PRESSURE, LIGHTHEADEDNESS, AND/OR SHORTNESS OF BREATH.
--- NOTE | 2021-04-09 19:21 | NUR ---
END OF SHIFT SUMMARY: PATIENT WAS VERY DROWSY THIS MORNING; NODDING OFF WHEN STAFF WAS IN THE ROOM PROVIDING CARE. BY LATE MORNING, THE PATIENT WAS ALERT AND INTERACTING WITH STAFF WITHOUT DOZING OFF. PATIENT TOLERATED BEING UP TO THE RECLINER VIA THE LIFT WELL. PATIENT APPRECIATED BEING ABLE TO GET UP TO THE RECLINER. PATIENT'S DAUGHTER, CHICO CAME TO VISIT. SHE WOULD APPRECIATE BEING CONSULTED ABOUT HIS CARE. HER PHONE NUMBER IS: [phone]. PATIENT CONTINUES TO HAVE PAIN IN HIS LEFT KNEE AND WRIST ("7/10"0). DISCUSSED WITH DR. MCCARTHY. NEW ORDERS RECEIVED SO THAT BY THE END OF THE SHIFT, PRN PAIN MEDICATIONS AND THE K-PAD BROUGHT HIS PAIN DOWN TO "4/10". IN THE MORNING, THE PATIENT'S HEART RATE WOULD SOMETIMES GO HIGH 121. IT MAINLY STAYED IN THE HIGH 90'S. PATIENT DENIED CHEST PAIN, CHEST DISCOMFORT OR SHORTNESS OF BREATH. BY LATE MORNING AND EARLY AFTERNOON, PATIENT STAYED IN THE HIGH 90S. DISCUSSED WITH DR. MCCARTHY. NEW ORDERS ENTERED.
--- NOTE | 2021-04-10 05:10 | NUR ---
SHIFT SUMMARY PT A/O X 3. SLOW TO RESPOND. VERY SLEEPY THIS EVENING. PT HAS APNEIC SPELLS WHILE SLEEPING. REFUSES TO WEAR CPAP. PT DID WEAR NC 2 L WHILE SLEEPING. O2 SATS IN THE MID 90'S. TELEMETRY SR TO STACH WITH PAC'S RATE MOSTLY IN THE 80'S BUT OCCASSIONALLY GOES UP INTO THE 110'S. CIWA'S NEGATIVE. BLE CELLULITIS DRESSING REMAINED C/D/I THROUGHOUT THE NIGHT. CONDOM CATH ON. HEATING PAD TO LEFT KNEE FOR COMFORT. VITAL SIGNS STABLE. OTHERWISE NO ACUTE CHAGNES THIS SHIFT. WILL CONTINUE TO MONITOR.
--- NOTE | 2021-04-10 17:30 | NUR ---
SHIFT SUMMARY- PT IS A/O, PLESANT AND COOPERATIVE. HE IS EATING AND DRINKING WELL. HE SLEPT INTERMITENTLY THROUGHOUT THIS SHIFT. HE IS RECIEVING PRN PAIN MEDICATION. HE WORKED WITH PT TODAY AND TOLERATED WELL. HE REFUSED TO GET UP TO THE CHAIR THIS SHIFT. HE HAS A CONDOM CATH IN PLACE. HE ATTEMPTED TO HAVE A BM THIS SHIFT. BOWEL CARE WAS ORDERED. HIS BED IS IN THE LOW POSITION AND CALL LIGHT IS WITIN REACH.
--- NOTE | 2021-04-11 04:25 | NUR ---
SHIFT SUMMARY PT WITH SOME CONFUSION, DISORIENTED AT TIME. REMAINED IN BED THIS EVENING. PT STATED THAT WHEN LEAVING [facility] HE HAD A WALLET THAT HAD $2800.00. UNSURE WITH PT'S INTERMITTENT CONFUSION HOW VALID THIS IS. WILL PASS ON TO DAY RN TO LOOK INTO. BLE CELLULITIS. REDRESSED THIS EVENING WITH XEROFORM, KERLEX, AND JUAN J WRAP AFTER BEING CLEANSED WITH WOUND MEDICAL LAB DIRECTOR. BOWEL CARE STARTED THIS EVENING PT HAS NOT HAD A BM CHARTED SINCE 04/07/21. NO BM SO FAR THIS SHIFT. CONDOM CATH IN PLACE. PT COMPLAINED OF PAIN TO LEFT KNEE AND WRIST. MEDICATED PER EMAR. HEART RATE SUSTAINED UP INTO THE 120'S AT START OF SHIFT. MEDICATED X 1 WITH IV METOPROLOL WITH GOOD EFFECT. AFTER PT REMAINED IN SR W/ PAC'S IN THE 80'S-90'S. PT ALSO WITH LOW GRADE FEVER THIS EVENING. TYLENOL PROVIDED. FEVER TRENDED DOWN. PT RESTING IN BED AT THIS TIME. WILL CONTINUE TO MONITOR.
--- NOTE | 2021-04-11 18:46 | NUR ---
SHIFT SUMMARY- PT IS ALERT, PLESANT AND COOPERATIVE. HE IS EATING AND DRINKING WELL. RECIEVING PRN PAIN MEDICATIONS. HIS BANDAGES WERE CHANGED THIS SHIFT. HE SLEPT INTERMITENTLY THROUGHOUT THIS SHIFT. HE IS UP TO THE CHAIR AND CALL LIGHT IS WITHIN REACH.
--- NOTE | 2021-04-12 05:01 | NUR ---
SHIFT SUMMARY PT IS A/O X 3. INTERMITTENTLY CONFUSED. SLEPT OFF AND ON THROUGHOUT THE NIGHT. PAIN TO LEFT KNEE AND LEFT WRIST. MEDICATED PER EMAR. DRESSINGS TO BLE'S C/D/I. PT JAUNDICED. WEAK AND DECONDITIONED. VITAL SIGNS STABLE. NO ACUTE CHANGES. WILL CONTINUE TO MONITOR.
--- NOTE | 2021-04-12 17:54 | NUR ---
Spiritual care note: Mr. Camarena appeared confused at times. He told me he knows he needs to quit drinking and says "Its mind over matter. I can do it by myself." When asked how many times he has tried to quit drinking, he states "too many to count." When I pointed out that "Mind over matter" is not working, he says he does not want help. He was pleasant and spoke about his adult children with pride. I left him with some informationabout AA meetings in [facility] and encouraged getting help. I will remain avaialble.
--- NOTE | 2021-04-12 18:55 | NUR ---
a+o, able to make needs known, still needing assistance to move in bed, worked with pt and ot, dressings are cdi, changed if looked soiled, call light in reach, 2L via nc, bsr shared with pt and noc nurse, in good humor, no acute changes noted during shift
--- NOTE | 2021-04-13 04:29 | NUR ---
SHIFT SUMMARY ADMITTED FOR ETOH/SIRS. FELL AT HOME. FULL CODE. PLAN IS FOR PLACEMENT. TELEMETRY: NSR W PAC'S @ 90 BPM. LIFT PT. WORKING WITH PHYSICAL & OCCUPATIONAL THERAPY. FORGETFUL. FOLLOWS COMMANDS, COOPERATES WITH CARE. PRN OXYCODONE FOR KNEE AND ANKLE PAIN. NO NEW CONCERNS THIS SHIFT.
--- NOTE | 2021-04-13 17:01 | NUR ---
Spoke with Guillaume Tavarez prior to Pt visit and discussed case. Attempts for SNF placement are currently under way. Pt resting in bed upon arrival. Reviewed plan of care including D/C plan for SNF. Engaged in therapeutic education regarding disease process and the importance of alcohol cessation. Offered therapeutic listening as Pt expresses motivation and willingness to succeed in PT rehab and alcohol rehab. Continued therapeutic listening and answered questions. Pt expresses appreciation of conversation and reports no other concerns at this time. Palliative Care will remain available.
--- NOTE | 2021-04-13 18:06 | NUR ---
SHIFT SUMMARY NO ACUTE CHANGES NOTED TO PT THIS SHIFT. PT IS A&OX2-3, SOME CONFUSION NOTED, FORGETFUL AT TIMES. ABLE TO MAKE NEEDS KNOWN. PLEASANT AND COOPERATIVE TO CARE. NO C/O PAIN OR ANY DISCOMFORT THIS SHIFT. NO C/O CP, SOB OR N&V. PT REQUIRES 2P MAX ASSIST WITH BED MOBILITY. PT IS INCONTINENT / CONTINENT OF B&B. CONDOM CATH IN PLACE. PT DENIES DYSURIA. PT WORKED WITH THERAPY THIS SHIFT. BED AT LOWEST POSITION W/ ALARM ON. CALL LIGHT WITHIN REACH.
--- NOTE | 2021-04-14 04:59 | NUR ---
HAND CIGAR MAKER SUMMARY NO ACUTE CHANGES THIS SHIFT. PT AAOX3 WITH SOME INTERMITTENT CONFUSION/FORGETFULNESS. PT HAS BEEN VERY PLEASANT AND COOPERATIVE. MEDICATED FOR PAIN WITH OXYCODONE AT START OF SHIFT AND WITH TYLENOL X1 LATER ON IN THE AM. PT HAS SLEPT COMFORTABLY FOR THE MAJORITY OF THE NIGHT. PT HAS CONDOM CATH IN PLACE TO HELP WITH INCONTINENCE. VSS, WILL CONTINUE TO MONITOR.
--- NOTE | 2021-04-14 16:27 | NUR ---
SHIFT SUMMARY PT A&OX3, ABLE TO MAKE NEEDS KNOWN, FORGETFUL AT TIMES. INTERMITTENT CONFUSION NOTED. REDIRECTABLE. PT MEDICATED FOR PAIN PER EMAR. NO C/O CP, SOB, OR N&V. RESPS E/U IN RA, ON CONT BIOX, SATS >92%. AT APPROXIMATELY 1550, THIS RN AND CAROLYN DAVIS NOTED MINIMAL BLOOD TINGES ON PATIENT STOOL, PT DENIES ANY ABDOMINAL DISCOMFORT, DENIES N&V, STOOL APPEARS REGULAR IN TEXTURE. PT DENIES ANY PAIN OR ANY OTHER DISCOMFORT. NOTIFIED DR. PATRICK VIA PHONE, DR. PATRICK RECOMMENDED FURTHER MONITORING. PT CALM AND RESTED IN BED AT THIS TIME. BED AT LOWEST POSITION. CALL LIGHT WITHIN REACH.
--- NOTE | 2021-04-15 05:06 | NUR ---
SUMMARY NO NEW ISSUES NOTED. PT HAS SLEPT T/O SHIFT. PT AROUSES EASILY AND ANSWERS QUESTIONS APPROPIATELY. PT PAIN TX PER EMAR. PT DENIED SOB. PT CURRENTLY SLEEPING IN NO DISTRESS. CALL LIGHT AND BED ALARM ON.
--- NOTE | 2021-04-15 17:55 | NUR ---
PT RESTING IN BED, ALERT AND ORIENTED X4, SLOW TO RESPOND. PT IS BEDBOUND AND RECEIVED WOULD CARE TO BILAT LOWER EXT. THIS SHIFT. PT C/O MED PAIN AND WAS TREATED PER EMAR. NO ACUTE CHANGES. BED IN LOW POSITION AND STAFF WILL CONTINUE TO MONITOR.
--- NOTE | 2021-04-16 05:28 | NUR ---
SHIFT SUMMARY- PT. A&O, PLEASANT AND COOPERATIVE WITH CARE. CALLS APPROPRIATELY AND ABLE TO MAKE NEEDS KNOWN. HAD NO COMPLAINTS OF PAIN OR DISCOMFORT DURING THE NIGHT. SLEPT T/O THE NIGHT WITH 2L NC IN PLACE. PT. UNABLE TO TOLERATE CPAP. CONDOM CATHETER ON, HAD MEDIUM SIZE BM EARLY THIS AM. NO ACUTE CHANGES TO CONDTION. NO S/S OF WITHDRAWAL NOTED, VSS. CALL LIGHT WITHIN REACH AND SIDE RAILS UPX2. WILL CONT TO MONITOR.
--- NOTE | 2021-04-16 18:32 | NUR ---
SHIFT SUMMARY- PT IS A/O, PLESANT AND COOPERATIVE. HE WAS UP TO THE CHAIR WITH PT TODAY. HE IS EATING AND DRINKING WELL. HE REFUSED BANDAGE CHANGES THIS SHIFT. HE IS AWAITING PLACMENT.
--- NOTE | 2021-04-16 19:00 | NUR ---
ASSUMED CARE RECEIVED REPORT FROM STONEY CHRISTIANSON. PT RESTING IN BED, IN NAD. PLACED ON BEDPAN PER PT REQUEST. NO OTHER ACUTE NEEDS ASSESSED AT THIS TIME. REMINDED PT TO CALL WHEN FINISHED. INDICATED UNDERSTANDING. CALL LIGHT AND POSSESSIONS IN REACH.
--- NOTE | 2021-04-16 19:05 | NUR ---
ASSUMED CARE RECEIVED REPORT FROM STONEY STOLL. PT RESTING, IN NAD. CALL LIGHT IN REACH.
--- NOTE | 2021-04-17 04:18 | NUR ---
BUILDING SERVICES ENGINEER SUMMARY PT ASLEEP, IN NAD. VS REVIEWED,WNL. SLEPT ON AND OFF T/O NIGHT. PAIN MANAGED WITH MEDS PER EMAR, WITH GOOD RELIEF. DRSGS TO BLE CHANGED, C/D/I; PT TOLERATED WELL. CONDOM CATHETER PATENT AND DRAINING SUZE YELLOW URINE TO GRAVITY. NO ACUTE EVENTS TO REPORT OVERNIGHT. NO ACUTE NEEDS ASSESSED AT THIS TIME. CALL LIGHT, POSSESSIONS IN REACH, BED IN LOW AND LOCKED POSITION. WILL CONTINUE TO PROVIDE CARE UNTIL REPORT GIVEN TO ONCOMING RN.
--- NOTE | 2021-04-17 18:05 | NUR ---
SHIFT SUMMARY NO ACUTE CHANGES NOTED TO PT THIS SHIFT. A&OX3-4, ABLE TO MAKE NEEDS KNOWN. PLEASANT AND COOPERATIVE TO CARE. NO C/O PAIN OR ANY DISCOMFORT THIS SHIFT. NO C/O CP, SOB OR N&V. PT REQUIRES 2P MAX ASSIST. BED AT LOWEST POSITION. CALL LIGHT WITHIN REACH. AWAITING PLACEMENT.
--- NOTE | 2021-04-17 19:05 | NUR ---
ASSUMED CARE RECEIVED REPORT FROM STONEY CHRISTIANSON. PT RESTING, ASSISTED TO USE BEDPAN. REMINDED TO CALL WHEN FINISHED; INDICATED UNDERSTANDING. CALL LIGHT IN REACH, BED IN LOW POSITION.
--- NOTE | 2021-04-18 03:51 | NUR ---
NURSERY SCHOOL ATTENDANT SUMMARY PT ASLEEP, IN NAD. VS REVIEWED,WNL. NO ACUTE CHANGES NOTED IN CONDITION OVERNIGHT. SLEPT T/O. O2 SATS STABLE ON 2L/NC WHILE ASLEEP OR ON RA. CONDOM CATHETER PATENT, DRAINING SUZE YELLOW URINE TO GRAVITY, NO C/O DYSURIA. PAIN MANAGED PER EMAR WITH GOOD RELIEF. NO ACUTE NEEDS ASSESSED AT THIS TIME. CALL LIGHT, POSSESSIONS IN REACH, BED IN LOW POSITION WITH ALARMS ON. WILL CONTINUE TO PROVIDE CARE NEEDED UNTIL REPORT GIVEN TO ONCOMING RN.
--- NOTE | 2021-04-18 17:52 | NUR ---
SHIFT SUMMARY NO ACUTE CHANGES NOTED TO PT THIS SHIFT. PT A&OX3-4. ABLE TO MAKE NEEDS KNOWN, FORGETFUL AT TIMES. PLEASANT AND COOPERATIVE TO CARE. NO C/O PAIN OR ANY DISCOMFORT. DENIES CP, SOB, OR N&V. PT REQUIRES 2P MAX ASSIST WITH BED MOBILITY AND WITH TRANSFERS. CONDOM CATH IN PLACE. PG TO HEATHER DISCONTINUED THIS SHIFT ORDERED BY DR. PATRICK. BED AT LOWEST POSITION. CALL LIGHT WITHIN REACH.
--- NOTE | 2021-04-18 19:05 | NUR ---
ASSUMED CARE RECEIVED REPORT FROM STONEY CHRISTIANSON. PT RESTING IN BED, IN NAD. NO ACUTE NEEDS ASSESSED AT THIS TIME. CALL LIGHT, POSSESSIONS IN REACH, BED IN LOW AND LOCKED POSITION.
--- NOTE | 2021-04-19 04:10 | NUR ---
DISTRICT SERVICE MANAGER SUMMARY PT ASLEEP, IN NAD. VS REVIEWED,WNL. O2 SATS 90-94% ON 2L/NC. AFEBRILE. NO ACUTE CHANGES TO REPORT OVERNIGHT. PT SLEPT T/O. REQUESTING TO RECEIVE COVID VACCINE DURING HIS STAY IN THE HOSPITAL; WILL INFORM DAY RN OF PT'S REQUEST. PAIN MANAGED WITH MEDS PER EMAR WITH GOOD RELIEF. NO ACUTE NEEDS ASSESSED AT THIS TIME. CALL LIGHT, POSSESSIONS IN REACH, BED IN LOW AND LOCKED POSITION WITH ALARMS ON. WILL CONTINUE TO PROVIDE CARE NEEDED UNTIL REPORT GIVEN TO ONCOMING RN.
--- NOTE | 2021-04-19 17:59 | NUR ---
SHIFT SUMMARY PT A&OX3-4, FORGETFUL AT TIMES. ABLE TO MAKE NEEDS KNOWN, CALLS APPROPRIATELY FOR ASSISTANCE. PLEASANT AND COOPERATIVE TO CARE. NO C/O PAIN THIS SHIFT. NO C/O CP, SOB, OR N&V. PT HAD EPISODES OF DIARRHEA THIS SHIFT, PT DENIES N&V, HAS A POOR APPETITE, PT IS DRINKING FLUIDS. PT MEDICATED FOR DIARRHEA ORDERED. PT ALSO HAD A 102 FEVER THIS SHIFT, MEDICATED WITH TYLENOL, SUBSIDED TO 98.9. PT NOTED TO HAVE EPISODES OF TACHYCARDIA THIS SHIFT. DR. PATRICK NOTIFIED OF THE ABOVE, TELEPHONE AND VERBAL ORDERS NOTED. PT CURRENTLY ON NS AT 100ML/HR, 250 ML BOLUS GIVEN ORDERED. PT DENIES ANY DISCOMFORT AT THIS TIME. CALM AND COMFORTABLE IN BED. BED AT LOWEST POSITION. CALL LIGHT WITHIN REACH.
--- NOTE | 2021-04-20 01:19 | NUR ---
HEMANTH HAS HAD COUPOUS AMOUNTS OF YELLOW FOUL ODOR DIARRHEA. IT HAS NOT SLOWED DOWN DESPITE GETTING BANANNA CHIPS AND IMMODIUM EARLIER. SO FAR HE HAS HAD 5-6 LOOSE STOOLS AND WHEN WE CLEAN HIM HE CONTINUES TO GO. HE IS ALSO RUNNING A FEVER 99-100. CALLED DR. SUÁREZ AND GOT ORDER FOR GI PANEL AND ISOLATION.
[2021-04-20 06:22] LABS: BASOPHILS ABSOLUTE AUTO 0.07 K/mm3 (0.00-0.23); BASOPHILS PERCENT AUTO 1 % (0-2); EOSINOPHILS ABSOLUTE AUTO 0.11 K/mm3 (0.00-0.68); EOSINOPHILS PERCENT AUTO 1 % (0-6); Hematocrit 39.1 % (37.0-53.0); Hemoglobin 13.2 g/dL (13.5-17.5); IMMATURE GRAN ABSOLUTE AUTO 0.08 K/mm3 (0.00-0.10); IMMATURE GRAN PERCENT AUTO 1 % (0-1); LYMPHOCYTES ABSOLUTE AUTO 1.84 K/mm3 (0.84-5.20); LYMPHOCYTES PERCENT AUTO 21 % (21-46); MONOCYTES ABSOLUTE AUTO 0.66 K/mm3 (0.16-1.47); MONOCYTES PERCENT AUTO 8 % (4-13); Mean Corpuscular HGB 34.9 pg (26.0-34.0); Mean Corpuscular HGB Conc 33.8 g/dL (31.5-36.5); Mean Corpuscular Volume 103 fL (80-100); NEUTROPHILS ABSOLUTE AUTO 5.83 K/mm3 (1.96-9.15); NEUTROPHILS PERCENT AUTO 68 % (41-73); Platelet Count 341 K/mm3 (150-400); RDW Coefficient Variation 13.6 % (11.7-14.2); RDW Standard Deviation 51.5 fL (35.1-46.3); Red Blood Cell Count 3.78 M/mm3 (4.30-5.90); White Blood Cell Count 8.59 K/mm3 (4.00-11.30)
--- NOTE | 2021-04-20 06:34 | NUR ---
SHIFT SUMMARY: AOX3. BEDBOUND. VERY WEAK. INCONTIENT OF BOWEL AND URINE. CONDOM CATH ASSIST WITH URINE OUTPUT. LARGE AMOUNTS OF VERY WATERY YELLOWISH BROWN STOOLS, WITH SOME MUCUS IN IT. DUE TO MULTIPLE BM'S MD WAS CALLED AND PATIENT PLACED IN ISO FOR GI PANEL. SKIN IS STARTED TO EXCORIATE ON THE BOTTOM, THIGHS AND TESTICLES. BARRIER CREAM HAS BEEN APPLIED. IVF COMPLETED. LUNG SOUNDS DECREASED IN BASES. DRESSINGS TO BLE INTACT. VS SHOWED A SPIKE OF 100 TEMP, ASYMPTOMATIC. TACHYCARDIC WELL. ON CONTINUOUS BIOX, 2 LITERS OF O2. DOES DECREASE IN SATS WHEN HE TURNS. WILL REPORT TO DAYSHIFT. CALL LIGHT IS IN REACH.
[2021-04-20 06:35] LABS: Anion Gap 8 mmol/L (6-16); Blood Urea Nitrogen 11 mg/dL (8-24); Bun/Creatinine Ratio 13.9 (12.0-20.0); CO2, Blood 23 mmol/L (21-32); Calcium, Blood 8.4 mg/dL (8.5-10.1); Chloride, Blood 102 mmol/L (98-108); Creatinine, Blood 0.79 mg/dL (0.60-1.20); Glomerular Filtration Rate >60 (60-); Glucose, Blood 98 mg/dL (70-99); Potassium, Blood 3.6 mmol/L (3.5-5.5); Sodium, Blood 133 mmol/L (136-145)
[2021-04-20 08:00] LABS: Adenovirus F 40/41 Not Detected (NOT DETECT); Astrovirus Not Detected (NOT DETECT); Campylobacter Sp Not Detected (NOT DETECT); Cryptosporidium Not Detected (NOT DETECT); Cyclospora Cayetanensis Not Detected (NOT DETECT); E. Coli O157 Not Detected (NOT DETECT); Entamoeba Histolytica Not Detected (NOT DETECT); Enteroaggregative E. coli-EAEC Not Detected (NOT DETECT); Enteropathogenic E. coli-EPEC Not Detected (NOT DETECT); Enterotoxigenic E. coli-ETEC Not Detected (NOT DETECT); Giardia Lamblia Not Detected (NOT DETECT); Norovirus GI/GII Detected (NOT DETECT); Plesiomonas Shigelloides Not Detected (NOT DETECT); Rotavirus A Not Detected (NOT DETECT); Salmonella Sp Not Detected (NOT DETECT); Sapovirus Not Detected (NOT DETECT); Shiga Toxin-prod E. coli-STEC Not Detected (NOT DETECT); Shigella/Enteroin E. coli-EIEC Not Detected (NOT DETECT); Vibrio Cholerae Not Detected (NOT DETECT); Vibrio Sp Not Detected (NOT DETECT); Yersinia Enterocolitica Not Detected (NOT DETECT)
--- NOTE | 2021-04-20 17:48 | NUR ---
Spiritual care note: I met with Mr. Camarena to discuss his drinking. He admits he has a problem and needs to quit. He is very hesitant to accept help, telling me, "I won't do those meetings. I dont want to be preached at." He tells me he has tried to quit before and beleives he will be able to again. I gently explained what happens in "those meetings"--that this is not a faith organization, but a place to go for guidence and support from those who have fought the same baker. I provided a list of all AA meetings in [facility], as well as hotline and contact numbers. Mr. Camarena spoke at [facility] about his drinking. 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 "I know its going to kill me" he admits. Med will benefit from continued encouragement. It appears he is estranged from his adult children. His "best friend" lives in another [facility] and "drinks like I do." It appears Med has burned a lot of bridges with his drinking. I will remain available.
--- NOTE | 2021-04-20 17:57 | NUR ---
review of pt with christopher. Christopher Leary will review resources abain with pt and reach out.
--- NOTE | 2021-04-20 18:39 | NUR ---
PATIENT A/OX3, REFUSED TO GET OON THIS SHIFT. VERY POOR APPETITE, ENCOURAGING FLUID INTAKE. FEVER 103.0 AFTER TYLENOL GIVEN, SPOKE WITH DR WADE ABOUT FEVER AND POOR PO INTAKE. DR WADE WILL TAKE A LOOK AND PLACE ORDERS. 2LO2 TO MAINTAIN SATS. MULTIPLE EPISODES OF DIARRHEA, BUTTOCKS RED AND CREAM APPLIED.
--- NOTE | 2021-04-20 22:48 | NUR ---
FEVERS PT CONTINUES TO SPIKE FEVERS, DESPITE REICEIVING ANTINPYRETICS. PT HAS RECENTLY TESTED POSITIVE FOR CDIFF, AND IS NOT ON ANY ANTIBIOTICS. CALLED DR. KIMBROUGH TO NOTIFY HIM OF THIS AND HIS CONTINUED FEVERS. DR. KIMBROUGH DID NOT ORDER ANTIBIOTICS FOR THE CDIFF BUT DID ORDER BLOOD CULTURES. WILL MEDICATED WITH TYLENOL AND IBUPROPHEN PRN FOR FEVER.
[2021-04-21 00:35] LABS: BASOPHILS ABSOLUTE AUTO 0.04 K/mm3 (0.00-0.23); BASOPHILS PERCENT AUTO 0 % (0-2); Hematocrit 39.6 % (37.0-53.0); Hemoglobin 13.5 g/dL (13.5-17.5); LYMPHOCYTES ABSOLUTE AUTO 1.07 K/mm3 (0.84-5.20); LYMPHOCYTES PERCENT AUTO 8 % (21-46); MONOCYTES ABSOLUTE AUTO 0.36 K/mm3 (0.16-1.47); MONOCYTES PERCENT AUTO 3 % (4-13); Mean Corpuscular HGB 34.4 pg (26.0-34.0); Mean Corpuscular HGB Conc 34.1 g/dL (31.5-36.5); Mean Corpuscular Volume 101 fL (80-100); Mean Platelet Volume 9.9 fL (9.1-12.4); Platelet Count 365 K/mm3 (150-400); RDW Coefficient Variation 13.7 % (11.7-14.2); RDW Standard Deviation 51.1 fL (35.1-46.3); Red Blood Cell Count 3.92 M/mm3 (4.30-5.90); White Blood Cell Count 14.13 K/mm3 (4.00-11.30)
[2021-04-21 00:36] LABS: EOSINOPHILS PERCENT AUTO 0 % (0-6); IMMATURE GRAN ABSOLUTE AUTO 0.05 K/mm3 (0.00-0.10); IMMATURE GRAN PERCENT AUTO 0 % (0-1); NEUTROPHILS ABSOLUTE AUTO 12.61 K/mm3 (1.96-9.15); NEUTROPHILS PERCENT AUTO 89 % (41-73)
[2021-04-21 00:50] LABS: Albumin, Blood 2.6 g/dL (3.4-5.0); Anion Gap 11 mmol/L (6-16); Blood Urea Nitrogen 18 mg/dL (8-24); Bun/Creatinine Ratio 19.9 (12.0-20.0); CO2, Blood 19 mmol/L (21-32); Calcium, Blood 8.4 mg/dL (8.5-10.1); Chloride, Blood 103 mmol/L (98-108); Glomerular Filtration Rate >60 (60-); Glucose, Blood 156 mg/dL (70-99); Potassium, Blood 3.4 mmol/L (3.5-5.5); Sodium, Blood 133 mmol/L (136-145)
[2021-04-21 00:53] LABS: BAND PERCENT MAN 15 % (0-8); BASOPHILS ABSOLUTE MAN 0.14 K/mm3 (0.00-0.23); BASOPHILS PERCENT MAN 1 % (0-2); EOSINOPHILS PERCENT MAN 0 % (0-6); LYMPHOCYTES ABSOLUTE MAN 1.27 K/mm3 (0.84-5.20); LYMPHOCYTES PERCENT MAN 9 % (21-46); METAMYELOCYTE ABSOLUTE MAN 0.14 K/mm3 (0.00-0.00); METAMYELOCYTE PERCENT MAN 1 % (0-0); MONOCYTES ABSOLUTE MAN 0.84 K/mm3 (0.16-1.47); MONOCYTES PERCENT MAN 6 % (4-13); NEUTROPHILS ABSOLUTE MAN 11.72 K/mm3 (1.96-9.15); SEG NEUTROPHILS PERCENT MAN 68 % (41-73); TOTAL CELLS COUNTED 100
--- NOTE | 2021-04-21 01:08 | NUR ---
RAPID RESPONSE PT TEMPERATURE CONTINUED TO INCREASE DESPITE, RECEIVING IBUPROPHEN AND TYLENOL. DR. CARUSO NOTIFIED EARY IN THE SHIFT, THAT PT CONTINUES TO SPIKE FEVERS DESPITE THESE INTERVENTIONS, BOTH SPINNER FRAME'S WERE MADE AWARE ALSO. PT HAS BEEN SPIKING FEVERS EARLIER DURING DAYSHIFT WELL 04/20/21, IN WHICH PHYSICANS WERE MADE AWARE. BLOOD CULTURES WERE ORDERED ON PT THIS SHIFT, BUT NO IV ANTIBIOTICS. PT HAS BEEN LETHARGIC THIS SHIFT, AND IS MORE FORGETFUL AND CONFUSED. FLUIDS WERE STARTED ON PT BY DAYSHIFT RN. PT RECEIVED ANOTHER DOSE OF TYLENOL SHORTLY BEFORE MIDNIGHT. BLANKETS WERE TAKEN, AND TEMPERATURE TURNED DOWN IN ROOM. ICE PACK PLACED FOR COOLING. AROUND 0050 PT HR JUMPED TO THE 140'S AND INCREASED EVEN FURTHER AND HIT 204 FOR A BRIEF PERIOD BEFORE SUSTAINING AROUND 140'S. BLOOD PRESSURE ALSO ELEVATED, PT WAS DIAPHORETIC, WITH VISIBLE TREMORS. CALL IMMEDIATELY PLACED TO DR. KIMBROUGH WITH NO ANSWER, AND NO RETURNED CALL, WHEN HE DID CALL BACK HE TOLD US TO PLACE A CALL OUT TO DR. VELAZQUEZ SHE WOULD BE THE DOCTOR BATCH UNIT TREATER AT 0000. RAPID REPONSE WAS INITIATED AT 0000 SHORTLY AFTER PLACING CALL TO KAYLAN. HEADER SET UP OPERATOR RESPONSED, VITAL SIGNS CYCLED ON THE MACHINE, HR AND TEMPERATURE CLOSELY MONITORED. EKG OBTAINED WHICH SHOWED SVT. PT IS NOT ON TELE, THUS IV LOPRESSOR COULD NOT BE GIVEN. DR. SUÁREZ ARRIVED TO THE ROOM AROUND 0005. SBAR GIVEN TO DR. SUÁREZ. LABS, CHEST X-RAY, AND TRANSFER TO ICU ORDERED. 0106- STILL WAITING FOR ICU BED NO ICU AVALIBLE AT THIS TIME. ROOMS ARE BEING ARRANGED BY NURSING COKE CRANE OPERATOR AND CRTICAL CARE RN. PT BP, HR, TEMPERATURE IS STABLIZING AT THE MOMENT WE AWAIT FOR A BED. PT IS AWAKE AND ALERT AT THIS TIME AND TALKING TO ME. VITALS ARE CLOSELY BEING MONITORED. IVF INFUSING AT THIS TIME. COOLING MEASURES REMAIN IN PLACE. WILL CONTINUE TO MONITOR, UNTIL REPORT IS GIVEN AND TRANSFER IS COMPLETE.
--- NOTE | 2021-04-21 01:18 | NUR ---
CRITCAL LACTIC- STILL WAITING FOR ICU BED LACTIC 2.1. DR. VELAZQUEZ CALLED AND NOTIFIED, RECEIVED ORDER FOR LR BOLUS. STILL AWAITING, ICU BED AT THIS TIME. DR. VELAZQUEZ MADE AWARE OF THAT WELL AND PT CURRENT VITALS. MONITORING.
--- NOTE | 2021-04-21 01:47 | NUR ---
REPORT GIVEN TO MAIL CARRIER TECHNICIAN REPORT GIVEN TO MAIL CARRIER TECHNICIAN SHERI MULLINS, STILL AWAITING ICU BED AT THIS TIME. DR. VELAZQUEZ IS AWARE OF CURRENT VITALS. RECEIVED ORDER FOR STRAIGHT CATH TO OBTAIN UA. NO OTHER ADDITIONAL ORDERS AT THIS TIME.
--- NOTE | 2021-04-21 02:32 | NUR ---
ICU BED READY-TRANSFER ICU BED IS READY, VITALS OBTAINED BEFORE TRANSFER AND ARE STABLE. PT HAS BROKE FEVER, AND IS AFEBRILE AT THIS TIME. PT BP HAS LOWERED, HEART IS SUSTAINING IN THE TEENS AND HAS NOT GONE ABOVE THAT. PT IS AWAKE AND ALERT AND IS TALKING WITH STAFF. FLUID BOLUS CONTINUES TO INFUSE. STRAIGHT CATH DONE TO [facility] UA. PT TRANSFERRED WITH BELONGINGS IN PLACE. TRANSFER ORDERS ARE IN.
[2021-04-21 02:34] LABS: Source, Urine Clean Catch
[2021-04-21 02:36] LABS: Blood, Urine 2+ (Neg); Glucose Qualitative, Urine Neg (Neg); Ketones, Urine Neg (Neg); Leukocyte Esterase, Urine 1+ (Neg); Nitrite, Urine Neg (Neg); Protein, Urine 2+ (Neg); Specific Gravity, Urine 1.025 (1.003-1.022); Urobilinogen, Urine 1+ (Normal)
[2021-04-21 02:39] LABS: Appearance, Urine Hazy (Clear); Bilirubin, Urine 1+ (Neg); Color, Urine Yellow (P-Yellow)
[2021-04-21 02:40] LABS: Red Blood Cells, Urine 0-2 /hpf (0-2); Squamous Epithelial Cells Mod /hpf (Few)
[2021-04-21 02:41] LABS: Amorphous Light (0-Heavy); Bacteria Few /hpf
--- NOTE | 2021-04-21 06:37 | NUR ---
PATIENT CAME TO ICU 16 AT 0230 FROM A RAPID RESPONSE, PATIENT IS ALERT AND ORIENTATED, ABLE TO MAKE NEEDS KNOWN BUT HAS DIFFICULTY COMPLETING THOUGHTS, ABLE TO OPEN EYES TO VERBAL CUES SUSTAIN EYE WAKENING WITH REPEATED STIMULATION, FOLLOWS COMMANDS, ABLE TO TURN SELF. 18 GAUGE INSERTED IN THE RFA AND LFA, HYPOTENSIVE RECEIVED NEW ORDER FOR LACTAID RINGERS 3,000 ML BOLUS. PATIENT HAS RECEIVED 2 OF 3 BAGS AND PRESSURES IMPROVING BUT STAYING HYPOTENSIVE. PATIENT HAD TWO LARGE LIQUID FIGUEROA ODOROUS MUCUS STOOL AT 0635 THIS AM, HE WAS ABLE TO TELL ME HE NEEDED TO GO BUT WAS INCONTINENT.
--- NOTE | 2021-04-21 08:00 | NUR ---
ASSESSMENT- AWAKENS TO NAME, ABLE TO FOLLOW DIRECTIONS AND ANSWER QUESTIONS APPROPRIATELY. STATES DOES NOT REMEMBER TRANSFERRING TO ICU. EXPLAINED PLAN OF CARE. HYPOTENSIVE NOW IMPROVED, SYSTOLIC BLOOD PRESSURE 90'S. SINUS RHYTHM. AFEBRILE. SKIN W/D. NO N/V BUT STATES NO APPETITE. PIV X 3 INTACT. NS AT 100 CC/HR. REPOSITIONED, ABLE TO TURN SELF IN BED
[2021-04-21 08:45] LABS: Albumin, Blood 2.1 g/dL (3.4-5.0); Anion Gap 7 mmol/L (6-16); Blood Urea Nitrogen 20 mg/dL (8-24); Bun/Creatinine Ratio 18.2 (12.0-20.0); CO2, Blood 22 mmol/L (21-32); Chloride, Blood 105 mmol/L (98-108); Glomerular Filtration Rate >60 (60-); Glucose, Blood 144 mg/dL (70-99); Phosphorus, Blood 4.9 mg/dL (2.5-4.9); Potassium, Blood 3.7 mmol/L (3.5-5.5); Sodium, Blood 134 mmol/L (136-145)
--- NOTE | 2021-04-21 08:49 | NUR ---
DR. NGUYEN HERE-UDPATED, ASSESSED PT.
--- NOTE | 2021-04-21 09:15 | NUR ---
BLOOD PRESSURE STABLE, SLEEPING, CONTINUE TO MONITOR. LEGS UNWRAPPED, HEALING SORES, DRY FLAKY SKIN
--- NOTE | 2021-04-21 10:39 | NUR ---
DR. LUNA HERE-ORDERS FOR LEVOPHED, OK FOR PERIPHERAL INITIALLY-CALL IF NEED MORE THAN 10 MCG/MIN. PT SLEEPING AWAKENS TO NAME. SINUS. PO MARGE HELD THIS AM D/T LOW BLOOD PRESSURE
--- NOTE | 2021-04-21 12:30 | NUR ---
LEVOPHED GTT STARTED FOR HYPOTENSION WITH IMPROVEMENT. TITRATED UP TO 8 MCG/MIN THEN ABLE TO DECREASE TO 4 MCG/MIN FOR SUPPORT, GIVEN VIA PERIPHERAL SITE RFA-SITE WITH BLOOD RETURN, FLUSHES EASILY BUT NOW SITE TENDER- NO OTHER CHANGES AND SITE STILL FLUSHES AND HAS BLOOD RETURN. CHANGED INFUSION TO LEFT FA SITE-FLUSHES EASILY AND BLOOD RETURN PRESENT. WILL MONITOR RFA SITE. SEE ASSESSMENT-DENIES PAIN, SLEEPING WHEN UNDISTURBED BUT AWAKENS EASILY. WORKED WITH BED EXERCISES WITH PHYSICAL THERAPY. LOWER LEGS CLEANED, SKIN FLAKING, TRIPLE ANTIBIOTIC OINTMENT APPLIED, AREA HEALING AND LEFT OPEN TO AIR. SEE PICTURES.
--- NOTE | 2021-04-21 14:36 | NUR ---
LEVOPHED CONTINUES AT 4 MCG/MIN, MAP >65. SLEEPING WITHOUT COMPLAINTS.
--- NOTE | 2021-04-21 18:14 | NUR ---
LEVOPHED DECREASED TO 2 MCG/MIN FOR BP SUPPORT. SINUS RHYTHM. AWAKE, ALERT. SOMEWHAT FORGETFUL. REPOSITIONED. AFEBRILE. NOTIFIED DR. LUNA OF MAGNESIUM LEVEL. VOIDED TWICE-UNMEASURABLE. 3 EPISODES OF DIARRHEA. NO APPETITE BUT TAKING LIQUIDS
--- NOTE | 2021-04-21 18:44 | NUR ---
LEVOPHED AT 2 MCG/MIN, IV SITES INTACT. NO FURTHER TENDERNESS RIGHT FOREARM SITE. BLOOD RETURN CHECKED LEFT FOREARM SITE, LEVOPHED INFUSING AT THIS SITE, SITE DI, NO TENDERNESS OR INFILTRATION. REPOSITIONED FOR BEDPAN
[2021-04-22 03:52] LABS: Anion Gap 9 mmol/L (6-16); Blood Urea Nitrogen 14 mg/dL (8-24); Bun/Creatinine Ratio 23.7 (12.0-20.0); CO2, Blood 21 mmol/L (21-32); Calcium, Blood 7.9 mg/dL (8.5-10.1); Chloride, Blood 111 mmol/L (98-108); Creatinine, Blood 0.59 mg/dL (0.60-1.20); Glomerular Filtration Rate >60 (60-); Glucose, Blood 133 mg/dL (70-99); Magnesium, Blood 1.3 mg/dL (1.6-2.4); Phosphorus, Blood 2.9 mg/dL (2.5-4.9); Potassium, Blood 2.9 mmol/L (3.5-5.5); Sodium, Blood 141 mmol/L (136-145)
--- NOTE | 2021-04-22 05:50 | NUR ---
END OF SHIFT SUMMARY: PATIENT A/O X3 BUT FORGETFUL AT TIMES. POLITE BUT SEEMS LIKE HE IS STARTING TO GET AGITATED AT SMALL THINGS. DENIES PAIN OR DISCOMFORT. PATIENT HAS HAD MULTIPLE SMALL BOWEL MOVEMENTS TONIGHT. HE IS CONTINENT BUT LAZY WITH THE CALL LIGHT SOMETIMES TO ASK FOR HELP IN TIME. PATIENT HAD TO BE DIRECTED TO USE THE URINAL THE PROPER WAY SO HE DOESN'T JUST URINATE ON HIMSELF BUT STILL DOES NOT ALWAYS USE. ELECTROLYTES BEING REPLEATED THIS MORNING. HAS REMAINED IN NSR, ON 3L NC AND BP HAS BEEN STABLE. LEVO HAS REMAINED OFF THIS SHIFT.
--- NOTE | 2021-04-22 07:26 | NUR ---
Assumed care of this pt. He is a/o x 4 and watching TV in bed. Pt is able to make his needs known and has his call light in reach.
--- NOTE | 2021-04-22 11:34 | NUR ---
Pt continues to have liquid stool. Dr Can was notified and gave orders to place a rectal tube. This was explained to the pt and he agreed and the tube is now in place. The pt has some redness to his buttocks related to the stool incontinence. Pt was also having a hard time holding the urinal so he now has a condom cath in place which is working well as of now.
--- NOTE | 2021-04-22 18:01 | NUR ---
Shift Summary Pt has been a/o x 4 all day and very pleasant and cooperative with care. He was assisted with brushing his teeth and having and even worked with PT/OT. His personal goal is to increase his mobility. Per Dr Can a rectal tube was placed for his loose stools today as his buttocks is becoming excoriated. He also has a condoam cath on as it is very therapeutic in catching is urine since he has difficulties with the urinal. Pt continues to have a poor appetite as his stomach is still upset due to his stomach virus. His legs wounds have shown much improvement and the areas that were previously open are now closed. Lotion was applied to his dry skin. IV LR is infusing as ordered. PO water has been encouraged. Pt is able to make his needs known and calls for help when needed.
[2021-04-23 05:44] LABS: BASOPHILS ABSOLUTE AUTO 0.05 K/mm3 (0.00-0.23); BASOPHILS PERCENT AUTO 1 % (0-2); EOSINOPHILS ABSOLUTE AUTO 0.86 K/mm3 (0.00-0.68); EOSINOPHILS PERCENT AUTO 12 % (0-6); Hematocrit 35.9 % (37.0-53.0); Hemoglobin 12.1 g/dL (13.5-17.5); IMMATURE GRAN ABSOLUTE AUTO 0.03 K/mm3 (0.00-0.10); IMMATURE GRAN PERCENT AUTO 0 % (0-1); LYMPHOCYTES PERCENT AUTO 24 % (21-46); MONOCYTES PERCENT AUTO 7 % (4-13); Mean Corpuscular HGB 34.9 pg (26.0-34.0); Mean Corpuscular HGB Conc 33.7 g/dL (31.5-36.5); Mean Corpuscular Volume 104 fL (80-100); Mean Platelet Volume 10.1 fL (9.1-12.4); NEUTROPHILS ABSOLUTE AUTO 4.09 K/mm3 (1.96-9.15); NEUTROPHILS PERCENT AUTO 57 % (41-73); Platelet Count 306 K/mm3 (150-400); RDW Coefficient Variation 13.7 % (11.7-14.2); RDW Standard Deviation 52.5 fL (35.1-46.3); Red Blood Cell Count 3.47 M/mm3 (4.30-5.90); White Blood Cell Count 7.23 K/mm3 (4.00-11.30)
--- NOTE | 2021-04-23 06:01 | NUR ---
SHIFT SUMMARY PT RESTED WELL THROUGH THE NIGHT. ALERT AND ORIENTED, ABLE TO MAKE NEEDS KNOWN. COOPERATIVE WITH PLAN OF CARE. SATS >90% ON ROOM AIR, BUT DID PUT 2LN ON WHILE PT SLEPT. TELE NSR. CONDOM CATH IN PLACE - ADEQUATE UOP. NO BM. PT SENIOR LABEL SPECIALIST AND RN ASSISTED PT IN STANDING AT BEDSIDE WITH WALKER TO HELP IMPROVE AMBULATION FOR POTENTIAL D/C TO SNF. PT ASSISTS WITH TURNING. VSS. CALL LIGHT WITHIN REACH, BED IN LOWEST POSITION. WILL CONTINUE TO MONITOR.
[2021-04-23 06:19] LABS: Anion Gap 7 mmol/L (6-16); Blood Urea Nitrogen 6 mg/dL (8-24); Bun/Creatinine Ratio 10.8 (12.0-20.0); CO2, Blood 22 mmol/L (21-32); Calcium, Blood 8.2 mg/dL (8.5-10.1); Chloride, Blood 111 mmol/L (98-108); Creatinine, Blood 0.55 mg/dL (0.60-1.20); Glomerular Filtration Rate >60 (60-); Glucose, Blood 80 mg/dL (70-99); Potassium, Blood 3.4 mmol/L (3.5-5.5); Sodium, Blood 140 mmol/L (136-145)
--- NOTE | 2021-04-23 09:23 | NUR ---
ALERT AND ORIENTED X4. ON ROOM AIR SATING MID 90'S. DENIES SOB. TELE SHOWING SINUS WITH HR 70-80'S. VITAL SIGNS STABLE. DENIES CHEST PAIN/PRESSURE. BOWEL TONES HEARD. PERIPHERAL PULSES STRONG. BILATERAL LOWER EXTERMITY DISCOLORATION WELL 2+ EDEMA. ANTIBIOTICS INFUSED THIS AM. TAKING PILLS WHOLE WITH WATER. CONDOM CATH IN PLACE DRAINING CLEAR/YELLOW URINE. FALL PREVENTION IN PLACE. WILL CONTINUE TO MONITOR. MEDICAL STATUS, NO TELE.
--- NOTE | 2021-04-23 10:26 | NUR ---
TRANSFER TO MEDICAL: PT REMAINS STABLE. NO ACUTE CHANGES. SEE PREVIOUS NOTE. TRANSFERING TO MEDICAL VIA BED WITH ALL BELONGINGS. VITAL SIGNS REMAIN STABLE. PT DENIES PAIN/NEEDS AT THIS TIME.
--- NOTE | 2021-04-23 19:32 | NUR ---
SHIFT SUMMARY PT TX'D TO RM 339 FROM ICU 16. PT ABLE TO MOSTLY PIVOT TX TO BED VERY SLOWLY. PT LATER ABLE TO WORK WITH THERAPY AND GOT UP TO CHAIR AT BS. PT ALSO UP TO BSC FOR BM. PT SEEMED TO IMPROVE SOME THRU OUT THE DAY, SLOWLY BECOMING A LITTLE MORE MOBILE. BLE'S VERY RED AND SWOLLEN. A&O, ABLE TO MAKE NEEDS KNOWN. PLAN TO D/C TO SNF WHEN APPROPRIATE. CALL LT IN REACH.
--- NOTE | 2021-04-23 19:40 | NUR ---
ASSUMED CARE. HEMANTH IS UP IN THE RECLIENER. HE IS DOING MUCH BETTER THEN THE LAST TIME THIS RN SAW HIM. AOX3, ABLE TO RECALL THINGS. DENIES PAIN OR DISCOMFORT. REPORTS DECREASE IN BOWEL MOVEMENTS. NO NAUSEA. ABLE TO EAT BETTER. O2 ONLY AT NOC. HE IS GETTING UP AND USING THE WALKER NOW. HOPES TO GET THE FUNCTION OF HIS LEGS BACK. LUNG SOUNDS ARE CLAER T.O. NO SOB OR CONGESTION TO NOTE. HR REGULAR. ATE 80% OF HIS DINNER. DENIES ANY NEEDS AT THIS TIME. WILL CONTINUE TO MONITOR. CALL LIGHT IN REACH.
--- NOTE | 2021-04-23 20:53 | NUR ---
ON BSC. UNIT EDUCATOR GETTING HIM OFF. HE WAS ABLE TO GET UP ON HIS OWN, BUT SLOWLY. STILL DIFFICULT TO MOVE HIS LEGS AND WALK HE STATES. DENIES PAIN. GETTING STREGNTH BACK. SMALL SOFT BM NOTED, BROWN. URINATING WELL PER CONDOM CATH. MEDICATED WITH PM MEDS. NO OTHER NEEDS NOTED. CALL LIGHT IN REACH.
--- NOTE | 2021-04-23 22:00 | NUR ---
RESTING IN BED WATCHING TV. DENIES ANY NEEDS. ENCOURAGED DRINKING BUT HE STATES HE IS TIRED OF WATER. OFFERED OTHER THINGS TO DRINK BUT HE SAID NO. ENCOURAGED MORE FLUIDS. WILL CONTINUE TO MONITOR.
--- NOTE | 2021-04-24 05:19 | NUR ---
SHIFT SUMMARY: VS WNL, AFEBRILE. NO PAIN. EDEMA TO BLE, DISCOLORATION AND CLOSED VENOUS STASIS ULCERS. LIKES TO SIT UP WITH FEET DANGLING. ENCOURAGE KEEPING FEET ELEVATED. LUNG SOUNDS DIMINISHED. FEW SOFT LOOSE STOOLS T/O THE NIGHT, SMALL AMOUNTS. NO NAUSEA. MOVING AROUND MORE ON HIS OWN. ABLE TO STAND WITH WALKER AND TRANSFER. BOTTOM REDNESS IS IMPROVING. CONDOM CATH CONTINUES TO DRAIN WELL. GOOD APPETITE. SLEPT OFF AND ON. NO ACUTE CHANGES TO NOTE THIS SHIFT. CALL LIGHT REMAINS IN REACH.
[2021-04-24 05:35] LABS: Albumin, Blood 2.3 g/dL (3.4-5.0); Anion Gap 9 mmol/L (6-16); Blood Urea Nitrogen 6 mg/dL (8-24); Bun/Creatinine Ratio 11.5 (12.0-20.0); CO2, Blood 21 mmol/L (21-32); Calcium, Blood 8.4 mg/dL (8.5-10.1); Chloride, Blood 107 mmol/L (98-108); Creatinine, Blood 0.52 mg/dL (0.60-1.20); Glomerular Filtration Rate >60 (60-); Glucose, Blood 105 mg/dL (70-99); Phosphorus, Blood 4.1 mg/dL (2.5-4.9); Potassium, Blood 3.3 mmol/L (3.5-5.5); Sodium, Blood 137 mmol/L (136-145)
[2021-04-24 05:38] LABS: Magnesium, Blood 1.1 mg/dL (1.6-2.4)
--- NOTE | 2021-04-24 06:10 | NUR ---
CRITICAL MAG AT 1.1. DR. KIMBROUGH NOTIFIED. MAG RIDER 2 G ORDERED.
--- NOTE | 2021-04-24 09:24 | NUR ---
CALLED DR REIS. SHE AWARE 2 ORDERS MAG SULFATE. WANTS BOTH TO GIVE. DONE
--- NOTE | 2021-04-24 17:25 | NUR ---
PT UP WALKING WITH FWW AND 1 ASST TODAY. STILL WEAK, BUT MOVING. NO C/O PAIN TODAY. H/R IRREG, DISTANT. EDEMA BLE IS +2. PT FEET UP WHEN IN BED. NO NEW CONCERNS NOTED. BED IN LOW POSITION, CALL LITE IN REACH, BED ALARM ON FOR SAFETY
--- NOTE | 2021-04-25 07:43 | NUR ---
SPACE OPERATIONS OFFICER SUMMARY PT A/O X4, SLEPT WELL TONIGHT. DENIES PAIN, NAUSEA, SOB. VSS. NO ACUTE CHANGES. ABLE TO MAKE NEEDS KNOWN. VSS. REPORT GIVEN TO ONCOMING RN.
--- NOTE | 2021-04-25 17:57 | NUR ---
SHIFT SUMMARY PT AxOx4. COOPERATIVE WITH CARE. PT REPORTS LOOSE STOOL WITH BOWEL URGENCY TODAY. DENIES PAIN THIS SHIFT. 1 ASSIST TO BSC/BATHROOM. USING CONDOM CATH FOR URINARY INCONTINENCE. PT CURRENTLY SITTING IN CHAIR EATING DINNER. VITALS REVIEWED. CURRENT PLAN IS PENDING DC TO REHAB FACILITY. PT ON PRECAUTIONS FOR [place]/CDIFF. PT DENIES ANY NEEDS AT THIS TIME. CALL LIGHT IN REACH.
--- NOTE | 2021-04-25 23:54 | NUR ---
2019 PT SITTING IN RECLINER, REPORTS BACK AND L CALF PAIN, GAVE TYLENOL, WILL EVAL FOR EFFECT. PT HAS EDEMA IN LE'S AT 3+ PITTING WITH REDNESS. USING CONDOM CATH.
--- NOTE | 2021-04-26 03:57 | NUR ---
04/25/21 2200 PT SITTING IN RECLINER, WATCHING TV. NO APPARENT SIGNS OF DISTRESS. CALL LIGHT IS IN REACH. 04/26/21 0000 PT LYING IN BED, EYES CLOSED, APPEARS TO BE RESTING. BREATHING IS EVEN, UNLABORED. NO APPARENT SIGNS OF DISTRESS. CALL LIGHT IS I REACH.
--- NOTE | 2021-04-26 03:58 | NUR ---
0200 PT LYING IN BED, EYES CLOSED, APPEARS TO BE RESTING. BREATHING IS EVEN, UNLABORED. NO APPARENT SIGNS OF DISTRESS. CALL LIGHT IS IN REACH.
--- NOTE | 2021-04-26 03:59 | NUR ---
PT LYING IN BED, EYES CLOSED, APPEARS TO BE RESTING. WAKES EASILY TO VERBAL STIMULI. NO APPARENT SIGNS OF DISTRESS. CALL LIGHT IS IN REACH.
--- NOTE | 2021-04-26 04:37 | NUR ---
PT IS AAO X 4, ON RA. REPORTED BACK AND L CALF PAIN, GOT TYLENOL AT HS. EDEMA IN LE'S 3+ PITTING AND REDNESS. USING CONDOM CATH.
[2021-04-26 05:44] LABS: Anion Gap 6 mmol/L (6-16); Blood Urea Nitrogen 6 mg/dL (8-24); Bun/Creatinine Ratio 10.3 (12.0-20.0); CO2, Blood 23 mmol/L (21-32); Calcium, Blood 8.5 mg/dL (8.5-10.1); Chloride, Blood 109 mmol/L (98-108); Creatinine, Blood 0.58 mg/dL (0.60-1.20); Glomerular Filtration Rate >60 (60-); Glucose, Blood 96 mg/dL (70-99); Magnesium, Blood 1.4 mg/dL (1.6-2.4); Potassium, Blood 4.1 mmol/L (3.5-5.5); Sodium, Blood 138 mmol/L (136-145)
--- NOTE | 2021-04-26 07:37 | NUR ---
PT SITTING IN RECLINER. WATCHING TV. NO APPARENT SIGNS OF DISTRESS. DENIES NEED FOR ANYTHING AT THIS TIME. CALL LIGHT IS IN REACH. NO OTHER CHANGES THIS SHIFT.
--- NOTE | 2021-04-26 18:47 | NUR ---
SHIFT SUMMARY. A&OX4, PLEASANT AND COOPERATIVE WITH CARE. PT DENIES PAIN, SOB, N/V. PT REPORTS BM'S HAVE SLOWED DOWN AND ARE MORE FORMED TODAY. PT ENCOURAGED TO ELEVATE LEGS THERE IS SIGNIFICANT EDEMA. NO OTHER CHANGES OR CONCERNS.
--- NOTE | 2021-04-27 06:02 | NUR ---
SHIFT SUMMARY: PATIENT IS A&OX4, NO REPORTS OF PAIN, VSS. PATIENT AMBULATED TO THE DOOR AND BACK TO THE CHAIR THIS SHIFT AND TOLERATED ACTIVITY WELL. MADDIE HAS PUT OUT 2700 ML THIS SHIFT. PATIENT REMAINS IN CONTACT ENTERIC ISOLATION FOR C-DIFF.
--- NOTE | 2021-04-27 15:10 | NUR ---
IV IN R AC REMOVED IV REMOVED FROM R AC. PT STATES IT HAS BEEN THERE FOR "A WHILE". IV REMOVED & INTACT. PT RELIEVED OF ITS REMOVAL.
--- NOTE | 2021-04-27 18:22 | NUR ---
SHIFT SUMMARY PT SEEN BY PHYSICAL THERAPY AND MADE IND IN ROOM WHEN NOT HOOKED UP TO IV. PT PLEASED WITH THIS CHANGE. PT UP TO CHAIR MOST OF THE SHIFT. AMBULATES TO BATHROOM WHEN NEEDED. PT CONDOM CATH REMOVED THIS AM. PT VOIDING IN URINAL AND IN TOILET. PT STATES THIS IS WORKING WELL FOR HIM. NO OTHER ACUTE CHANGES IN ASSESSMENT AT THIS TIME. VS REVIEWED. PT DENIES FURTHER NEEDS AT THIS TIME. CALL LIGHT IN REACH.
--- NOTE | 2021-04-28 06:25 | NUR ---
SHIFT SUMMARY: PATIENT IS A&OX4, INDEPENDANT WTH THE FWW TO THE BATHROOM. VSS, NO REPORTS OF PAIN. PATIENT IS VOIDING WITHOUT DIFFICULTY IN URINAL. PATIENT REPORTED 4 BM'S IN THE PAST 24 HOURS. MAG ON 04/27/21 WAS 1.5.
--- NOTE | 2021-04-28 17:18 | NUR ---
SHIFT SUMMARY NO ACUTE EVENTS THIS SHIFT, VSS. PT ALERT AND ORIENTED, COOPERATIVE WITH CARE. PT ABLE TO AMBULATE TO BATHROOM WITH MINIMAL STANDBY ASSIST AND WALKER. CALLS APPROPRIATELY. ON ROOM AIR, TOLERATING WELL.
--- NOTE | 2021-04-29 04:46 | NUR ---
SHIFT SUMMARY NO ACUTE CHANGES THIS EVENING. PT REPORTED ONE BM THIS EVENING. DENIED ANY DIARRHEA. REPORTING IT TO BE PASTE IN TEXTURE. NO COMPLAINTS OF PAIN. PT'S ONLY COMPLAINT WAS WANTING A COVID VACCINE. WROTE REMINDER ON WHITE BOARD AND ENCOURAGED PT TO SPEAK TO DAY TIME PHYSICIAN ABOUT IT. PT HAD AN UNEVENTFUL NIGHT. VITAL SIGNS STABLE. WILL CONTINUE TO MONITOR.
[2021-04-29] MEDS ORDERED: POTCHL20ER PO (12:46)
[2021-04-29] MEDS ORDERED: B-1100 M1 PO (12:46)
[2021-04-29] MEDS ORDERED: Pepcid 20 mg Ta20 MG PO (12:46)
[2021-04-29] MEDS ORDERED: MAGNESIUM OXID500 MG PO (12:47)
--- NOTE | 2021-04-29 16:00 | NUR ---
DISCHARGE SUMMARY PATIENT DISCHARGED TO HOME WITH HOME HEALTH. PATIENT ALERT AND ORIENTED THIS SHIFT. PATIENT HAS BEEN INDEPENDENT IN THE ROOM WITH FWW. PATIENT PROVIDED WITH DISCHARGE AND MEDICATION EDUCATION. PATIENT WITHOUT AN IV THIS SHIFT. PATIENT DRESSED INDEPENDENTLY PRIOR TO DISCHARGE. PATIENT TRANSPORTED VIA WHEELCHAIR VAN.
== END 2021-04-29 15:15 | disposition home health service (06) | DRG 432 ==
LOC: ER 16:48 → PCU 20:52 → MEDS 20:52 → PCU 21:49 → MEDS 04-08 11:37 → ICUW 04-21 02:30 → MEDS 04-23 10:45
PROVIDERS: Emergency Medicine; Family Medicine; Hospitalist; Internal Medicine; ADMIT Internal Medicine
PROC: 3E033XZ Introduction of Vasopressor into Peripheral Vein, Percutaneous Approach (ICD-10-PCS; principal; 2021-04-21)
DX: K70.10 Alcoholic hepatitis without ascites (principal); R57.1 Hypovolemic shock; A41.9 Sepsis, unspecified organism; R65.21 Severe sepsis with septic shock; L03.115 Cellulitis of right lower limb; L03.116 Cellulitis of left lower limb; M62.82 Rhabdomyolysis; E87.2 Acidosis; R65.10 Systemic inflammatory response syndrome (SIRS) of non-infectious origin without acute organ dysfunction; Z68.41 Body mass index [BMI] 40.0-44.9, adult; A08.11 Acute gastroenteropathy due to Norwalk agent; G72.1 Alcoholic myopathy; F10.231 Alcohol dependence with withdrawal delirium; F10.221 Alcohol dependence with intoxication delirium; E83.42 Hypomagnesemia; E87.6 Hypokalemia; E86.0 Dehydration; I48.91 Unspecified atrial fibrillation; R77.8 Other specified abnormalities of plasma proteins; I87.2 Venous insufficiency (chronic) (peripheral); E66.01 Morbid (severe) obesity due to excess calories; I10 Essential (primary) hypertension; M54.5 Low back pain; G89.29 Other chronic pain; M19.90 Unspecified osteoarthritis, unspecified site; Z71.41 Alcohol abuse counseling and surveillance of alcoholic; Z96.641 Presence of right artificial hip joint; Z79.899 Other long term (current) drug therapy; Z98.890 Other specified postprocedural states; Y90.7 Blood alcohol level of 200-239 mg/100 ml
CPT/HCPCS: 0097U; 36415; 71045; 80048; 80053; 80069; 81001; 82140; 82550; 82553; 82947; 83605; 83615; 83690; 83735; 83880; 84100; 84132; 84145; 84484; 85014; 85018; 85025; 85610; 87040; 87324; 92526; 92610; 93005; 93010; 94640; 94660; 94760; 94762; 96365; 96366; 96368; 96375; 97110; 97116; 97162; 97166; 97530; 97535; 99285-25; A9270; C1751; G0480; J0690; J0696; J1650; J2060; J2405; J3411; J3475; J3480; J7030; J7042; J7050; J7060; J7120

== ENCOUNTER 2021-05-14 05:07 | Emergency (ER) | payer OTHER ==
[~2021-05-14] VITALS: Ht 177.8 cm; Wt 130.6 kg
[~2021-05-14 05:07] MED LIST changes: +DILT120ERA PO; +Pepcid 20 mg Ta20 MG PO
[2021-05-14 05:36] LABS: BASOPHILS ABSOLUTE AUTO 0.09 K/mm3 (0.00-0.23); BASOPHILS PERCENT AUTO 1 % (0-2); EOSINOPHILS ABSOLUTE AUTO 0.46 K/mm3 (0.00-0.68); EOSINOPHILS PERCENT AUTO 6 % (0-6); Hematocrit 39.3 % (37.0-53.0); Hemoglobin 13.9 g/dL (13.5-17.5); IMMATURE GRAN ABSOLUTE AUTO 0.02 K/mm3 (0.00-0.10); IMMATURE GRAN PERCENT AUTO 0 % (0-1); LYMPHOCYTES ABSOLUTE AUTO 3.64 K/mm3 (0.84-5.20); LYMPHOCYTES PERCENT AUTO 50 % (21-46); MONOCYTES ABSOLUTE AUTO 0.71 K/mm3 (0.16-1.47); MONOCYTES PERCENT AUTO 10 % (4-13); Mean Corpuscular HGB 33.6 pg (26.0-34.0); Mean Corpuscular HGB Conc 35.4 g/dL (31.5-36.5); Mean Corpuscular Volume 95 fL (80-100); NEUTROPHILS ABSOLUTE AUTO 2.34 K/mm3 (1.96-9.15); NEUTROPHILS PERCENT AUTO 32 % (41-73); Platelet Count 163 K/mm3 (150-400); RDW Coefficient Variation 15.5 % (11.7-14.2); RDW Standard Deviation 54.6 fL (35.1-46.3); Red Blood Cell Count 4.14 M/mm3 (4.30-5.90); White Blood Cell Count 7.26 K/mm3 (4.00-11.30)
[2021-05-14 05:56] LABS: Alanine Aminotransfer (ALT/SGP 31 U/L (12-78); Albumin, Blood 2.6 g/dL (3.4-5.0); Albumin/Globulin Ratio 0.5 (0.8-1.8); Alk Phos 247 U/L (50-136); Anion Gap 10 mmol/L (6-16); Aspartate Aminotrans (AST/SGOT 89 U/L (12-37); Bilirubin, Total 0.9 mg/dL (0.1-1.0); Blood Urea Nitrogen 2 mg/dL (8-24); Bun/Creatinine Ratio 3.5 (12.0-20.0); C-REACTIVE PROTEIN, EXT RANGE <0.290 mg/dL (0.000-0.300); CO2, Blood 24 mmol/L (21-32); CPK Creatine Kinase 164 U/L (39-308); Calcium, Blood 7.3 mg/dL (8.5-10.1); Chloride, Blood 108 mmol/L (98-108); Creatinine, Blood 0.58 mg/dL (0.60-1.20); Ethanol (Alcohol), Blood, Med 269 mg/dL; Globulin, Blood 4.9 g/dL (2.2-4.0); Glomerular Filtration Rate >60 (60-); Glucose, Blood 202 mg/dL (70-99); Sodium, Blood 142 mmol/L (136-145); Total Protein, Blood 7.5 g/dL (6.4-8.2)
[2021-05-14 06:00] LABS: Magnesium, Blood 1.1 mg/dL (1.6-2.4)
== END 2021-05-14 07:40 | disposition home or self-care (01) ==
LOC: ER 05:07
PROVIDERS: Emergency Medicine
DX: F10.229 Alcohol dependence with intoxication, unspecified (principal); E87.6 Hypokalemia; E83.42 Hypomagnesemia; I87.8 Other specified disorders of veins; Z79.899 Other long term (current) drug therapy
CPT/HCPCS: 80053; 82550; 83735; 85025; 86140; 93005; 93010; 96365; 99283-25; A9270; G0480; J3475; J7030

== ENCOUNTER 2021-07-10 11:52 | Inpatient (IN) | payer OTHER ==
[~2021-07-10] VITALS: Ht 177.8 cm; Wt 127.0 kg
[2021-07-10 12:22] LABS: BASOPHILS PERCENT AUTO 1 % (0-2); EOSINOPHILS ABSOLUTE AUTO 0.07 K/mm3 (0.00-0.68); EOSINOPHILS PERCENT AUTO 1 % (0-6); Hemoglobin 7.5 g/dL (13.5-17.5); IMMATURE GRAN ABSOLUTE AUTO 0.12 K/mm3 (0.00-0.10); IMMATURE GRAN PERCENT AUTO 1 % (0-1); LYMPHOCYTES ABSOLUTE AUTO 1.59 K/mm3 (0.84-5.20); LYMPHOCYTES PERCENT AUTO 13 % (21-46); MONOCYTES PERCENT AUTO 7 % (4-13); Mean Corpuscular HGB 32.9 pg (26.0-34.0); Mean Corpuscular HGB Conc 35.7 g/dL (31.5-36.5); Mean Corpuscular Volume 92 fL (80-100); NEUTROPHILS ABSOLUTE AUTO 9.68 K/mm3 (1.96-9.15); NEUTROPHILS PERCENT AUTO 78 % (41-73); Platelet Count 556 K/mm3 (150-400); RDW Standard Deviation 59.7 fL (35.1-46.3); Red Blood Cell Count 2.28 M/mm3 (4.30-5.90); White Blood Cell Count 12.46 K/mm3 (4.00-11.30)
[2021-07-10 12:41] LABS: Alanine Aminotransfer (ALT/SGP 9 U/L (12-78); Albumin, Blood 2.3 g/dL (3.4-5.0); Albumin/Globulin Ratio 0.4 (0.8-1.8); Alk Phos 196 U/L (50-136); Anion Gap 23 mmol/L (6-16); Aspartate Aminotrans (AST/SGOT 94 U/L (12-37); Bilirubin, Indirect 0.8 mg/dL (0.1-0.7); Bilirubin, Total 2.8 mg/dL (0.1-1.0); Blood Urea Nitrogen 18 mg/dL (8-24); Bun/Creatinine Ratio 16.1 (12.0-20.0); CO2, Blood 18 mmol/L (21-32); Chloride, Blood 95 mmol/L (98-108); Creatinine, Blood 1.12 mg/dL (0.60-1.20); Globulin, Blood 5.3 g/dL (2.2-4.0); Glomerular Filtration Rate >60 (60-); Glucose, Blood 205 mg/dL (70-99); Sodium, Blood 136 mmol/L (136-145); Total Protein, Blood 7.6 g/dL (6.4-8.2); Troponin I <0.015 ng/mL (0.000-0.040)
[2021-07-10 12:47] LABS: Potassium, Blood 2.1 mmol/L (3.5-5.5)
[2021-07-10 13:12] LABS: SARS-Cov-2 (COVID-19) PCR, MMC NEGATIVE (NEGATIVE)
[2021-07-10 14:15] LABS: Base Excess Venous -0.8 mmol/L; Bicarbonate Venous 23.9 mmol/L (24.0-30.0); PCO2 Venous 37.4 mmHg (38-42); PO2 Venous 104 mmHg (38-42); pH Blood Venous 7.41 (7.34-7.37)
[2021-07-10 14:42] LABS: International Normalized Ratio 1.41; Prothrombin Time Results 14.9 Sec (9.7-11.5)
--- NOTE | 2021-07-10 18:51 | NUR ---
ADMIT NOTE PATIENT ARRIVED TO ROOM AT 1730. ALERT AND ORIENTED. ABLE TO STAND AND PIVOT TO BED WITH SBA ASSIST AND FWW. PLACED IN FRESH GOWN AND PULL UPS. SHORTS WERE SOILED AND TIFFANY CARE WAS DONE. VSS, RA FOR O2. PATIENT DENIED NAUSEA, SOB, CHEST PAIN. STATED HE WAS HUNGRY. SKIN IS JAUNDICED WELL EYES. NO TREMORS, DOES REPORT SLIGHT LIGHT-HEADEDNESS. SINUS TACH WITH PAC'S ON TELE. THIAMINE, POTASSIUM RUNNING IV. WILL REPORT OFF TO HYDROLOGIC ENGINEER RN.
[2021-07-10 19:25] LABS: Anion Gap 16 mmol/L (6-16); Blood Urea Nitrogen 17 mg/dL (8-24); Bun/Creatinine Ratio 14.7 (12.0-20.0); CO2, Blood 24 mmol/L (21-32); Calcium, Blood 6.4 mg/dL (8.5-10.1); Chloride, Blood 95 mmol/L (98-108); Creatinine, Blood 1.16 mg/dL (0.60-1.20); Glomerular Filtration Rate >60 (60-); Glucose, Blood 126 mg/dL (70-99); Potassium, Blood 2.3 mmol/L (3.5-5.5); Sodium, Blood 135 mmol/L (136-145)
[2021-07-11 03:55] LABS: BASOPHILS ABSOLUTE AUTO 0.04 K/mm3 (0.00-0.23); BASOPHILS PERCENT AUTO 1 % (0-2); EOSINOPHILS ABSOLUTE AUTO 0.44 K/mm3 (0.00-0.68); EOSINOPHILS PERCENT AUTO 7 % (0-6); IMMATURE GRAN ABSOLUTE AUTO 0.03 K/mm3 (0.00-0.10); IMMATURE GRAN PERCENT AUTO 1 % (0-1); LYMPHOCYTES ABSOLUTE AUTO 0.71 K/mm3 (0.84-5.20); LYMPHOCYTES PERCENT AUTO 11 % (21-46); MONOCYTES ABSOLUTE AUTO 0.42 K/mm3 (0.16-1.47); MONOCYTES PERCENT AUTO 7 % (4-13); Mean Corpuscular HGB 31.7 pg (26.0-34.0); Mean Corpuscular HGB Conc 35.8 g/dL (31.5-36.5); Mean Corpuscular Volume 89 fL (80-100); Mean Platelet Volume 9.7 fL (9.1-12.4); NEUTROPHILS ABSOLUTE AUTO 4.63 K/mm3 (1.96-9.15); NEUTROPHILS PERCENT AUTO 74 % (41-73); Platelet Count 337 K/mm3 (150-400); RDW Coefficient Variation 17.4 % (11.7-14.2); RDW Standard Deviation 55.7 fL (35.1-46.3); Red Blood Cell Count 1.83 M/mm3 (4.30-5.90); White Blood Cell Count 6.27 K/mm3 (4.00-11.30)
[2021-07-11 04:03] LABS: Hematocrit 16.2 % (37.0-53.0); Hemoglobin 5.8 g/dL (13.5-17.5)
[2021-07-11 04:20] LABS: Alanine Aminotransfer (ALT/SGP 8 U/L (12-78); Albumin, Blood 2.2 g/dL (3.4-5.0); Albumin/Globulin Ratio 0.5 (0.8-1.8); Alk Phos 160 U/L (50-136); Anion Gap 8 mmol/L (6-16); Aspartate Aminotrans (AST/SGOT 82 U/L (12-37); Bilirubin, Total 1.6 mg/dL (0.1-1.0); Blood Urea Nitrogen 18 mg/dL (8-24); Bun/Creatinine Ratio 15.4 (12.0-20.0); CO2, Blood 29 mmol/L (21-32); Calcium, Blood 5.8 mg/dL (8.5-10.1); Chloride, Blood 96 mmol/L (98-108); Creatinine, Blood 1.17 mg/dL (0.60-1.20); Globulin, Blood 4.2 g/dL (2.2-4.0); Glomerular Filtration Rate >60 (60-); Glucose, Blood 121 mg/dL (70-99); Sodium, Blood 133 mmol/L (136-145); Total Protein, Blood 6.4 g/dL (6.4-8.2)
--- NOTE | 2021-07-11 07:37 | NUR ---
SHIFT SUMMARY A/O X4, VSS THOUGH ONE EARLY BP HAD SYSTOLIC OF 90, PT DENIES ANY DIZZINESS, ELECTROLYTES INFUSED T/O MOST OF THE SHIFT, 1 UNIT PRBC STARTED c NO SIGN OF REACTIONS, K+ RUNNING SLOW R/T PT C/O BURNING AT THE IV SITE. NO ACUTE EVENTS THIS SHIFT OUTSIDE OF THE CRITICAL LABS WHICH WERE ADRESSED. CALL LIGHT IN REACH, REPORT GIVEN TO DAY RN.
--- NOTE | 2021-07-11 09:58 | NUR ---
LOVENOX AND CARDIZEM PT HAS LOW BP AT THIS TIME R/T LOW H&H. DR. GARCIA NOTIFIED, CARDIZEM HELD R/T LOW BP. HR IS ELEVATED AT THIS TIME 100-113. PT MAY NEED MORE PRBCs AFTER FIRST UNIT IS COMPLETE, WILL CONTINUE TO MONITOR BP AND HR. PLAN TO ADMINISTER CARDIZEM WHEN BP NORMALIZES. LOVENOX HELD R/T CONCERN FOR GI BLEED, DR. GARCIA AWARE. WAITING FOR STOOL SAMPLE AT THIS TIME.
[2021-07-11 10:58] LABS: Hematocrit 18.2 % (37.0-53.0); Hemoglobin 6.5 g/dL (13.5-17.5); Mean Corpuscular HGB 31.9 pg (26.0-34.0); Mean Corpuscular HGB Conc 35.7 g/dL (31.5-36.5); Mean Corpuscular Volume 89 fL (80-100); Mean Platelet Volume 9.5 fL (9.1-12.4); Platelet Count 320 K/mm3 (150-400); RDW Coefficient Variation 16.9 % (11.7-14.2); RDW Standard Deviation 54.4 fL (35.1-46.3); Red Blood Cell Count 2.04 M/mm3 (4.30-5.90)
[2021-07-11 11:21] LABS: Albumin, Blood 2.2 g/dL (3.4-5.0); Anion Gap 8 mmol/L (6-16); Blood Urea Nitrogen 17 mg/dL (8-24); Bun/Creatinine Ratio 17.5 (12.0-20.0); CO2, Blood 28 mmol/L (21-32); Calcium, Blood 5.9 mg/dL (8.5-10.1); Chloride, Blood 96 mmol/L (98-108); Creatinine, Blood 0.97 mg/dL (0.60-1.20); Glomerular Filtration Rate >60 (60-); Glucose, Blood 166 mg/dL (70-99); Potassium, Blood 2.2 mmol/L (3.5-5.5); Sodium, Blood 132 mmol/L (136-145)
--- NOTE | 2021-07-11 11:34 | NUR ---
DR. GARCIA AND Tete SMALLWOOD NOTIFIED OF LAB VALUES. NOTIFIED OF H&H 6.5 & 18.2 POTASSIUM 2.2 CALCIUM 5.[address] GARCIA STATED THAT SHE WOULD PLACE ORDERS.
--- NOTE | 2021-07-11 13:00 | NUR ---
NOON ASSESSMENT BP AND HR IMPROVED FROM AM ASSESSMENT. CARDIZEM GIVEN SINCE SBP >100. NO CHANGES TO REPORT SINCE AM ASSESSMENT.
--- NOTE | 2021-07-11 17:08 | NUR ---
EVENING ASSESSMENT ASSESSMENT UNCHANGED SINCE PREVIOUS ASSESSMENT. BP AND HER HAVE IMPROVED.
[2021-07-11 17:51] LABS: Hematocrit 21.2 % (37.0-53.0); Hemoglobin 7.7 g/dL (13.5-17.5); Mean Corpuscular HGB 31.6 pg (26.0-34.0); Mean Corpuscular HGB Conc 36.3 g/dL (31.5-36.5); Mean Corpuscular Volume 87 fL (80-100); Mean Platelet Volume 9.8 fL (9.1-12.4); Platelet Count 355 K/mm3 (150-400); Red Blood Cell Count 2.44 M/mm3 (4.30-5.90); White Blood Cell Count 8.05 K/mm3 (4.00-11.30)
--- NOTE | 2021-07-11 17:53 | NUR ---
SHIFT SUMMARY POTASSIUM AND BLOOD PRODUCTS GIVEN TO IMPROVED H&H AND POTASSIUM LEVELS. PT HAS BEEN ALERT AND ORIENTED. HE IS ABLE TO REPOSITION WITH MINIMAL STAFF ASSISTANCE. POWER GLIDE PLACED TO [facility] BY BRYAN LUA. DR. GARCIA DISCUSSED TREATMENT FOR ETOH USE. NO STOOLS TODAY, PT REMAINS IN ISOLATION TO RULE OUT CDIFF. VSS. WILL MONITOR UNTIL REPORT TO ONCOMING STONEY.
[2021-07-11 18:41] LABS: Anion Gap 9 mmol/L (6-16); Blood Urea Nitrogen 14 mg/dL (8-24); Bun/Creatinine Ratio 16.3 (12.0-20.0); CO2, Blood 27 mmol/L (21-32); Calcium, Blood 6.1 mg/dL (8.5-10.1); Chloride, Blood 97 mmol/L (98-108); Creatinine, Blood 0.86 mg/dL (0.60-1.20); Glomerular Filtration Rate >60 (60-); Glucose, Blood 138 mg/dL (70-99); Phosphorus, Blood 0.9 mg/dL (2.5-4.9); Potassium, Blood 2.4 mmol/L (3.5-5.5); Sodium, Blood 133 mmol/L (136-145)
[2021-07-11 20:50] LABS: Stool Occult Blood Guaiac 1 Neg (Neg)
[2021-07-11 22:19] LABS: Campylobacter Sp Not Detected (NOT DETECT); Cryptosporidium Not Detected (NOT DETECT); E. Coli O157 Not Detected (NOT DETECT); Enteroaggregative E. coli-EAEC Not Detected (NOT DETECT); Enteropathogenic E. coli-EPEC Not Detected (NOT DETECT); Enterotoxigenic E. coli-ETEC Not Detected (NOT DETECT); Plesiomonas Shigelloides Not Detected (NOT DETECT); Salmonella Sp Not Detected (NOT DETECT); Shiga Toxin-prod E. coli-STEC Not Detected (NOT DETECT); Shigella/Enteroin E. coli-EIEC Not Detected (NOT DETECT); Vibrio Cholerae Not Detected (NOT DETECT); Vibrio Sp Not Detected (NOT DETECT); Yersinia Enterocolitica Not Detected (NOT DETECT)
[2021-07-11 22:20] LABS: Adenovirus F 40/41 Not Detected (NOT DETECT); Astrovirus Not Detected (NOT DETECT); Cyclospora Cayetanensis Not Detected (NOT DETECT); Entamoeba Histolytica Not Detected (NOT DETECT); Giardia Lamblia Not Detected (NOT DETECT); Norovirus GI/GII Not Detected (NOT DETECT); Rotavirus A Not Detected (NOT DETECT); Sapovirus Not Detected (NOT DETECT)
[2021-07-12 00:26] LABS: Hematocrit 19.2 % (37.0-53.0)
[2021-07-12 00:53] LABS: Anion Gap 8 mmol/L (6-16); Blood Urea Nitrogen 12 mg/dL (8-24); Bun/Creatinine Ratio 14.7 (12.0-20.0); CO2, Blood 28 mmol/L (21-32); Calcium, Blood 5.6 mg/dL (8.5-10.1); Chloride, Blood 97 mmol/L (98-108); Creatinine, Blood 0.82 mg/dL (0.60-1.20); Glomerular Filtration Rate >60 (60-); Glucose, Blood 148 mg/dL (70-99); Phosphorus, Blood 1.5 mg/dL (2.5-4.9); Potassium, Blood 2.4 mmol/L (3.5-5.5); Sodium, Blood 133 mmol/L (136-145)
[2021-07-12 06:01] LABS: Hematocrit 23.2 % (37.0-53.0); Hemoglobin 8.4 g/dL (13.5-17.5)
[2021-07-12 06:18] LABS: Anion Gap 7 mmol/L (6-16); Blood Urea Nitrogen 10 mg/dL (8-24); Bun/Creatinine Ratio 13.6 (12.0-20.0); CO2, Blood 28 mmol/L (21-32); Calcium, Blood 6.4 mg/dL (8.5-10.1); Chloride, Blood 99 mmol/L (98-108); Creatinine, Blood 0.74 mg/dL (0.60-1.20); Glomerular Filtration Rate >60 (60-); Glucose, Blood 135 mg/dL (70-99); Magnesium, Blood 1.2 mg/dL (1.6-2.4); Phosphorus, Blood 1.7 mg/dL (2.5-4.9); Potassium, Blood 2.5 mmol/L (3.5-5.5); Sodium, Blood 134 mmol/L (136-145)
--- NOTE | 2021-07-12 06:35 | NUR ---
SHIFT SUMMARY PT HAS HAD SOME IMPROVEMENT IN HIS LABS THIS SHIFT THOUGH STILL LOW ON K/Ca WHICH WERE CRITICAL EARLIER, HGB UP TO 8.4 AFTER 1 UNIT PRBC. STOOL SAMPLE CONFIRMED C.DIFF BUT WAS NEGATIVE FOR BLOOD, ABD STILL DISTENDED BUT SOFT AND NO PAIN WITH PALPATION. PT HAD SOME MOMENTS OF POSSIBLE CONFUSION/AMS WHILE HE WAS HYPERFOCUSING ON THE CORDS/LINES HE WAS CONNECTED TO THOUGH THIS APPEARD TO IMPROVE T/O THE SHIFT. NO ACUTE EVENTS THIS SHIFT OTHER THAN CRITICAL LABS WHICH WERE ADDRESSED. CALL LIGHT IN REACH, WILL CTM AND REPORT TO DAY RN.
--- NOTE | 2021-07-12 11:05 | NUR ---
REPORT GIVEN TO STONEY CHATTERJEE ON MED FLOOR. PT TRANSFERED VIA BED. BELONGINGS WITH PATIENT. CHANGED PT PRIOR TO TRANSFER, INC OF BLADDER AND BOWEL. WAS UNAWARE THAT HE HAD BM. REDNESS TO COCCYX, ORANGE CREAM APPLIED.
--- NOTE | 2021-07-12 11:24 | NUR ---
PT ARRIVED TO THE MEDICAL FLOOR VIA BED A/OX3, PLEASANT AND COOPERATIVE. THE PT DENIED ANY HERRON, N/V, PAIN, SHAKES, VISUAL OR AUDIABLE HALUCINATIONS. PT APPEARS TO BE BREATHING EASILY ON RA AT THIS TIME. PT WAS ORIENTED TO THE ROOM LAYOUT AND CALL SYSTEM. CALL LIGHT IN REACH, WILL CONTINUE TO MONITOR AND ASSESS FOR CHANGES
[2021-07-12 12:36] LABS: Hematocrit 22.6 % (37.0-53.0); RETICULOCYTE ABSOLUTE 0.0099 M/mm3 (0.0200-0.1100); RETICULOCYTE COUNT PERCENT 0.38 % (0.50-2.50)
[2021-07-12 13:15] LABS: Percent Saturation 35.3 % (20.0-50.0)
--- NOTE | 2021-07-12 16:51 | NUR ---
PT IS A/OX3, PLEASANT AND COOPERATIVE, DUSKY IN COLOR. BED REST AT THIS TIME, PT STATES THAT HE IS UNABLE AT THIS TIME TO WALK MORE THAN A FEW STEPS DUE TO WEAKNESS. THE PT DENEID ANY PAIN. THE PT HAS BEEN INCONTNENT AT TIMES T/O THE SHIFT. PT APPEARS TO BE BREATHING EASILY ON RA. WILL CONTINUE TO MONITOR AND ASSESS FOR CHANGES
[2021-07-12 17:27] LABS: Hematocrit 23.4 % (37.0-53.0); Hemoglobin 8.4 g/dL (13.5-17.5)
[2021-07-12 18:24] LABS: Anion Gap 9 mmol/L (6-16); Blood Urea Nitrogen 7 mg/dL (8-24); Bun/Creatinine Ratio 9.9 (12.0-20.0); CO2, Blood 26 mmol/L (21-32); Calcium, Blood 6.4 mg/dL (8.5-10.1); Chloride, Blood 99 mmol/L (98-108); Creatinine, Blood 0.71 mg/dL (0.60-1.20); Glomerular Filtration Rate >60 (60-); Glucose, Blood 140 mg/dL (70-99); Potassium, Blood 2.8 mmol/L (3.5-5.5); Sodium, Blood 134 mmol/L (136-145)
[2021-07-12 18:50] LABS: Magnesium, Blood 0.9 mg/dL (1.6-2.4)
[2021-07-13 00:45] LABS: Hematocrit 21.8 % (37.0-53.0); Hemoglobin 7.9 g/dL (13.5-17.5)
[2021-07-13 05:34] LABS: Hematocrit 22.3 % (37.0-53.0); Hemoglobin 8.1 g/dL (13.5-17.5); Mean Corpuscular HGB 31.8 pg (26.0-34.0); Mean Corpuscular HGB Conc 36.3 g/dL (31.5-36.5); Mean Corpuscular Volume 88 fL (80-100); Mean Platelet Volume 9.9 fL (9.1-12.4); NRBC ABSOLUTE 0.12 K/mm3 (0.00-0.02); NRBC Auto 1.1 /100 WBC (0.0-0.2); Platelet Count 344 K/mm3 (150-400); RDW Standard Deviation 57.4 fL (35.1-46.3); Red Blood Cell Count 2.55 M/mm3 (4.30-5.90); White Blood Cell Count 11.35 K/mm3 (4.00-11.30)
--- NOTE | 2021-07-13 06:08 | NUR ---
SUMMARY: PT A/OX3 W/MILD CONFUSION TO DATE SPECIFICS AND CALLS APPROPRIATELY TO SPECIFY NEEDS. BED ALARM FOR POSSIBLE IMPULSIVITY BUT PT REPORTS INABILITY TO AMBULATE AT THIS TIME R/T WEAKNESS. HE HAD URINAL AT BEDSIDE BUT WAS INCONTINENT T/O NOCTE W/ATTENDS CHANGED PRN. CIWA'S WERE 0-1 T/O NOCTE. HE DENIED PAIN, ANXIETY, NAUSEA AND ALL OTHER COMPLAINTS. HE'S AFIB/WAP AT 80'S- 90'S BPM W/O S/S CARDIAC DISTRESS. VSS/AFEBRILE, NO ACUTE CHANGES. WCTM AND REPORT TO DAY RN.
[2021-07-13 06:19] LABS: Alanine Aminotransfer (ALT/SGP 12 U/L (12-78); Albumin/Globulin Ratio 0.5 (0.8-1.8); Alk Phos 156 U/L (50-136); Anion Gap 8 mmol/L (6-16); Aspartate Aminotrans (AST/SGOT 77 U/L (12-37); Bilirubin, Total 1.3 mg/dL (0.1-1.0); Blood Urea Nitrogen 7 mg/dL (8-24); Bun/Creatinine Ratio 9.4 (12.0-20.0); CO2, Blood 27 mmol/L (21-32); Calcium, Blood 6.5 mg/dL (8.5-10.1); Chloride, Blood 101 mmol/L (98-108); Creatinine, Blood 0.74 mg/dL (0.60-1.20); Globulin, Blood 4.1 g/dL (2.2-4.0); Glomerular Filtration Rate >60 (60-); Glucose, Blood 139 mg/dL (70-99); Potassium, Blood 3.1 mmol/L (3.5-5.5); Sodium, Blood 136 mmol/L (136-145); Total Protein, Blood 6.1 g/dL (6.4-8.2)
[2021-07-13 12:39] LABS: Magnesium, Blood 1.5 mg/dL (1.6-2.4)
--- NOTE | 2021-07-13 17:06 | NUR ---
PT IS A/OX3, PLEASANT AND COOPERATIVE, THE PT IS UP WITH ASSIST TO THE CHAIR. THE PT WAS ABLE THIS AM TO STAND AND WALK INTO THE BATHROOM USEING THE FWW. THE PT WAS UP IN THE CHAIR FOR BREAKFST AND SAT IN THE CHAIR FOR A COUPLE HOURS. THE PT WORKED WITH THE PHYSICAL THERAPIST TODAY. PT REPORTED THAT HE HAD TALKED WITH [facility] AND HAS AN APPOINTMENT SET UP WITH THEM THIS COMMING MONDAY. THE PT DENIED ANY PAIN T/O THE DAY. PT REPORTS NO WITHDRAWL SYMPTOMS AT THIS TIME. CALL LIGHT IN REACH, WILL CONTINUE TO MONITOR AND ASSESS FOR CHANGES
--- NOTE | 2021-07-14 04:29 | NUR ---
SHIFT SUMMARY PT HAS SLEPT OFF AND ON THIS SHIFT. PT HAS BEEN INCONTINENT OF BOWEL AND BLADDER AND HAS HAD THREE SOFT STOOLS. VANCO CONTINUED ORDERED FOR CDIFF. PT HAS NO S/S OF ETOH WITHDRAWAL THIS SHIFT. A/OX4, MAKES NEEDS KNOWN. NO ACUTE CHANGES. BED IN LOWEST POSITION, CALL LIGHT WITHIN REACH.
[2021-07-14 07:02] LABS: Hematocrit 21.6 % (37.0-53.0); Hemoglobin 7.6 g/dL (13.5-17.5); Mean Corpuscular HGB 31.5 pg (26.0-34.0); Mean Corpuscular HGB Conc 35.2 g/dL (31.5-36.5); Mean Corpuscular Volume 90 fL (80-100); Mean Platelet Volume 10.4 fL (9.1-12.4); NRBC ABSOLUTE 0.08 K/mm3 (0.00-0.02); NRBC Auto 0.7 /100 WBC (0.0-0.2); Platelet Count 321 K/mm3 (150-400); RDW Coefficient Variation 18.4 % (11.7-14.2); RDW Standard Deviation 58.7 fL (35.1-46.3); Red Blood Cell Count 2.41 M/mm3 (4.30-5.90); White Blood Cell Count 10.78 K/mm3 (4.00-11.30)
[2021-07-14 07:19] LABS: Alanine Aminotransfer (ALT/SGP 15 U/L (12-78); Albumin, Blood 1.9 g/dL (3.4-5.0); Albumin/Globulin Ratio 0.5 (0.8-1.8); Alk Phos 143 U/L (50-136); Anion Gap 6 mmol/L (6-16); Aspartate Aminotrans (AST/SGOT 72 U/L (12-37); Blood Urea Nitrogen 7 mg/dL (8-24); Bun/Creatinine Ratio 10.2 (12.0-20.0); CO2, Blood 26 mmol/L (21-32); Calcium, Blood 6.9 mg/dL (8.5-10.1); Chloride, Blood 103 mmol/L (98-108); Creatinine, Blood 0.68 mg/dL (0.60-1.20); Globulin, Blood 4.2 g/dL (2.2-4.0); Glomerular Filtration Rate >60 (60-); Glucose, Blood 124 mg/dL (70-99); Magnesium, Blood 1.3 mg/dL (1.6-2.4); Potassium, Blood 4.3 mmol/L (3.5-5.5); Sodium, Blood 135 mmol/L (136-145); Total Protein, Blood 6.1 g/dL (6.4-8.2)
[2021-07-14 07:28] LABS: BAND PERCENT MAN 5 % (0-8); BASOPHILS PERCENT MAN 0 % (0-2); EOSINOPHILS ABSOLUTE MAN 0.32 K/mm3 (0.00-0.68); EOSINOPHILS PERCENT MAN 3 % (0-6); LYMPHOCYTES % ATYPICAL MANUAL 1 % (0-0); LYMPHOCYTES PERCENT MAN 25 % (21-46); METAMYELOCYTE ABSOLUTE MAN 0.21 K/mm3 (0.00-0.00); METAMYELOCYTE PERCENT MAN 2 % (0-0); MONOCYTES ABSOLUTE MAN 0.21 K/mm3 (0.16-1.47); MONOCYTES PERCENT MAN 2 % (4-13); MYELOCYTE ABSOLUTE MAN 0.21 K/mm3 (0.00-0.00); MYELOCYTE PERCENT MAN 2 % (0-0); SEG NEUTROPHILS PERCENT MAN 60 % (41-73); TOTAL CELLS COUNTED 100
[2021-07-14 08:10] LABS: HBSAG SCREEN Negative (Negative); HEP A AB, IGM Negative (Negative); HEP B CORE AB, IGM Negative (Negative); HEP C VIRUS AB <0.1 (0.0-0.9)
--- NOTE | 2021-07-14 16:36 | NUR ---
SHIFT SUMMARY PT ALERT AND ORIENTED WITH SOME SHORT TERM MEMORY LOSS. STANDBY WITH WHEELED WALKER PT STILL HAVING LOOSE BM AND INCONTINENCE. PT EXPECTED TO DISCHARGE TOMORROW.
[2021-07-15 05:14] LABS: BASOPHILS ABSOLUTE AUTO 0.07 K/mm3 (0.00-0.23); BASOPHILS PERCENT AUTO 1 % (0-2); EOSINOPHILS ABSOLUTE AUTO 0.48 K/mm3 (0.00-0.68); EOSINOPHILS PERCENT AUTO 6 % (0-6); Hemoglobin 8.2 g/dL (13.5-17.5); Mean Corpuscular HGB 31.2 pg (26.0-34.0); Mean Corpuscular HGB Conc 34.2 g/dL (31.5-36.5); Mean Corpuscular Volume 91 fL (80-100); Mean Platelet Volume 9.7 fL (9.1-12.4); NRBC ABSOLUTE 0.02 K/mm3 (0.00-0.02); NRBC Auto 0.2 /100 WBC (0.0-0.2); Platelet Count 314 K/mm3 (150-400); RDW Coefficient Variation 19.3 % (11.7-14.2); RDW Standard Deviation 60.8 fL (35.1-46.3); Red Blood Cell Count 2.63 M/mm3 (4.30-5.90); White Blood Cell Count 8.43 K/mm3 (4.00-11.30)
[2021-07-15 05:30] LABS: IMMATURE GRAN ABSOLUTE AUTO 0.35 K/mm3 (0.00-0.10); IMMATURE GRAN PERCENT AUTO 4 % (0-1); LYMPHOCYTES ABSOLUTE AUTO 2.84 K/mm3 (0.84-5.20); LYMPHOCYTES PERCENT AUTO 34 % (21-46); MONOCYTES ABSOLUTE AUTO 0.53 K/mm3 (0.16-1.47); MONOCYTES PERCENT AUTO 6 % (4-13); NEUTROPHILS ABSOLUTE AUTO 4.16 K/mm3 (1.96-9.15); NEUTROPHILS PERCENT AUTO 49 % (41-73)
[2021-07-15 05:31] LABS: Alanine Aminotransfer (ALT/SGP 18 U/L (12-78); Albumin, Blood 2.2 g/dL (3.4-5.0); Albumin/Globulin Ratio 0.5 (0.8-1.8); Alk Phos 155 U/L (50-136); Anion Gap 7 mmol/L (6-16); Aspartate Aminotrans (AST/SGOT 65 U/L (12-37); Blood Urea Nitrogen 7 mg/dL (8-24); Bun/Creatinine Ratio 8.7 (12.0-20.0); CO2, Blood 25 mmol/L (21-32); Calcium, Blood 7.2 mg/dL (8.5-10.1); Chloride, Blood 105 mmol/L (98-108); Creatinine, Blood 0.81 mg/dL (0.60-1.20); Globulin, Blood 4.2 g/dL (2.2-4.0); Glomerular Filtration Rate >60 (60-); Glucose, Blood 124 mg/dL (70-99); Magnesium, Blood 1.5 mg/dL (1.6-2.4); Phosphorus, Blood 2.6 mg/dL (2.5-4.9); Potassium, Blood 4.2 mmol/L (3.5-5.5); Sodium, Blood 137 mmol/L (136-145); Total Protein, Blood 6.4 g/dL (6.4-8.2)
--- NOTE | 2021-07-15 06:02 | NUR ---
PT REMAINS ALERT AND OREINTED X4, CHILDLIKE AND RESTING IN BED, SLEPT MOST OF THE NIGHT WAKING FOR MEDICATION ADMIN AND LABS. NO CHANGES NOTED OVER NIGHT. STAFF WILL CONT TO MONITOR.
--- NOTE | 2021-07-15 14:51 | NUR ---
discharge reviewed with pt he verbalized understnading meds and inst. iv and powerglide pulled intact. no tele. assisted pt to dress. pt wheled to door by aide. expecting tx thru [employer]. at 1453
== END 2021-07-15 15:20 | disposition home health service (06) | DRG 433 ==
LOC: ER 11:52 → MEDS 16:14 → PCU 16:14 → SURS 16:14 → MEDS 07-12 11:01
PROVIDERS: Hospitalist; Internal Medicine; Student in an Organized Health Care Education/Training Program; ADMIT Hospitalist
DX: K70.10 Alcoholic hepatitis without ascites (principal); E87.1 Hypo-osmolality and hyponatremia; E87.2 Acidosis; F10.239 Alcohol dependence with withdrawal, unspecified; A04.72 Enterocolitis due to Clostridium difficile, not specified as recurrent; G72.1 Alcoholic myopathy; Z68.41 Body mass index [BMI] 40.0-44.9, adult; I10 Essential (primary) hypertension; G89.29 Other chronic pain; M54.5 Low back pain; Z96.641 Presence of right artificial hip joint; E87.6 Hypokalemia; E83.42 Hypomagnesemia; E83.51 Hypocalcemia; E66.01 Morbid (severe) obesity due to excess calories; E83.39 Other disorders of phosphorus metabolism; Z20.822 Contact with and (suspected) exposure to COVID-19; I87.2 Venous insufficiency (chronic) (peripheral); I48.0 Paroxysmal atrial fibrillation; G62.1 Alcoholic polyneuropathy; F10.20 Alcohol dependence, uncomplicated; D63.8 Anemia in other chronic diseases classified elsewhere; M47.817 Spondylosis without myelopathy or radiculopathy, lumbosacral region; M47.816 Spondylosis without myelopathy or radiculopathy, lumbar region; R74.01 Elevation of levels of liver transaminase levels; M19.90 Unspecified osteoarthritis, unspecified site; Z86.718 Personal history of other venous thrombosis and embolism; Z98.890 Other specified postprocedural states; Z79.899 Other long term (current) drug therapy; Z71.41 Alcohol abuse counseling and surveillance of alcoholic
CPT/HCPCS: 0097U; 36415; 36430; 71045; 72148; 76705; 80048; 80053; 80069; 80074; 80076; 82272; 82330; 82607; 82728; 82746; 82803; 83540; 83550; 83605; 83690; 83735; 84100; 84145; 84484; 85014; 85018; 85025; 85027; 85045; 85610; 86850; 86900; 86901; 86920; 86923; 87040; 87324; 93005; 93010; 94762; 96365; 96366; 96367; 96368; 96375; 97110; 97116; 97161; 97165; 97530; 97535; 99285-25; A9270; C1751; C9113; G0480; J0610; J0696; J3411; J3475; J3480; J7030; J7050; J7060; P9016; U0004

== ENCOUNTER 2021-09-08 15:31 | Inpatient (IN) | payer OTHER ==
[~2021-09-08] VITALS: Ht 177.8 cm; Wt 131.6 kg
[2021-09-08 15:55] LABS: Calcium, Ionized (POC) 0.64 mmol/L (1.10-1.46); Chloride (POC) 107 mmol/L (98-108); Creatinine (POC) 1.9 mg/dL (0.8-1.3); Glucose (ISTAT POC) 400 mg/dL (70-99); Hemoglobin (POC) 13.9 g/dL (13.5-17.5); Potassium (POC) 3.1 mmol/L (3.5-5.5); Sodium (POC) 146 mmol/L (135-148); Total CO2 (POC) 11 mmol/L (21-32)
[2021-09-08 16:08] LABS: Hematocrit 37.1 % (37.0-53.0); Mean Corpuscular HGB 31.5 pg (26.0-34.0); Mean Corpuscular HGB Conc 29.6 g/dL (31.5-36.5); Mean Corpuscular Volume 106 fL (80-100); Mean Platelet Volume 11.3 fL (9.1-12.4); NRBC ABSOLUTE 0.26 K/mm3 (0.00-0.02); NRBC Auto 1.4 /100 WBC (0.0-0.2); Platelet Count 372 K/mm3 (150-400); RDW Standard Deviation 96.6 fL (35.1-46.3); Red Blood Cell Count 3.49 M/mm3 (4.30-5.90); White Blood Cell Count 18.66 K/mm3 (4.00-11.30)
[2021-09-08 16:08] LABS: Bicarbonate Venous 3.5 mmol/L (24.0-30.0); PO2 Venous 83 mmHg (38-42)
[2021-09-08 16:09] LABS: Base Excess Venous -32.6 mmol/L
[2021-09-08 16:38] LABS: pH Blood Arterial <6.80 (7.35-7.45)
[2021-09-08 16:39] LABS: PCO2 Arterial 30.6 mmHg (35-45); PO2 Arterial 350 mmHg (80-100)
[2021-09-08 16:46] LABS: Ethanol (Alcohol), Blood, Med <3 mg/dL; Troponin I <0.015 ng/mL (0.000-0.040)
[2021-09-08 16:54] LABS: BASOPHILS ABSOLUTE MAN 0.18 K/mm3 (0.00-0.23); BASOPHILS PERCENT MAN 1 % (0-2); EOSINOPHILS PERCENT MAN 0 % (0-6); LYMPHOCYTES % ATYPICAL MANUAL 1 % (0-0); LYMPHOCYTES ABSOLUTE MAN 10.82 K/mm3 (0.84-5.20); LYMPHOCYTES PERCENT MAN 57 % (21-46); METAMYELOCYTE ABSOLUTE MAN 0.18 K/mm3 (0.00-0.00); METAMYELOCYTE PERCENT MAN 1 % (0-0); MONOCYTES ABSOLUTE MAN 0.55 K/mm3 (0.16-1.47); MONOCYTES PERCENT MAN 3 % (4-13); MYELOCYTE ABSOLUTE MAN 0.18 K/mm3 (0.00-0.00); MYELOCYTE PERCENT MAN 1 % (0-0); NEUTROPHILS ABSOLUTE MAN 6.71 K/mm3 (1.96-9.15); SEG NEUTROPHILS PERCENT MAN 36 % (41-73); TOTAL CELLS COUNTED 100
[2021-09-08 17:01] LABS: Alanine Aminotransfer (ALT/SGP 18 U/L (12-78); Albumin, Blood 1.6 g/dL (3.4-5.0); Albumin/Globulin Ratio 0.3 (0.8-1.8); Alk Phos 261 U/L (50-136); Anion Gap 37 mmol/L (6-16); Aspartate Aminotrans (AST/SGOT 175 U/L (12-37); Bilirubin, Total 4.3 mg/dL (0.1-1.0); Blood Urea Nitrogen 24 mg/dL (8-24); Bun/Creatinine Ratio 12.2 (12.0-20.0); CO2, Blood 5 mmol/L (21-32); Calcium, Blood 6.2 mg/dL (8.5-10.1); Chloride, Blood 104 mmol/L (98-108); Creatinine, Blood 1.96 mg/dL (0.60-1.20); Globulin, Blood 5.7 g/dL (2.2-4.0); Glomerular Filtration Rate 34 (60-); Glucose, Blood 417 mg/dL (70-99); Sodium, Blood 146 mmol/L (136-145); Total Protein, Blood 7.3 g/dL (6.4-8.2)
[2021-09-08 17:54] LABS: Influenza A, PCR NEGATIVE (NEGATIVE); Influenza B, PCR NEGATIVE (NEGATIVE); Resp Syncytial Virus, PCR NEGATIVE (NEGATIVE); SARS-Cov-2 (COVID-19) PCR, MMC NEGATIVE (NEGATIVE)
--- NOTE | 2021-09-08 18:15 | NUR ---
ARRIVAL TO ICU PT BROUGHT TO ICU AT THIS TIME BY ED STAFF. PT IS INTUBATED WITH VENT SETTINGS AC/VC 16/550/5/40%. PT RECEIVING LEVOPHED AT 24MCG/MIN AND SODIUM BICARB. LUNGS ARE COARSE AND DIMINISHD. PUPILS ARE REACIVE, R PUPIL 4MM AND L PUPIL 2MM. CORE TEMP 90.3. BEAR HUGGER IN PLACE FOR WARMING. TARGT TEMP 91.4-95F. PERKINS IN PLACE WITH NO URINE OUTPUT. PT HAS SKIN BREAKDOWN ON LOWER ABDOMEN, BILAT THIGHS, AND BUTTOCKS. ADDITIONAL LABS HAVE BEEN DRAWN AND ARE PENDING.
[2021-09-08 19:08] LABS: PCO2 Arterial 31.2 mmHg (35-45); PO2 Arterial 164 mmHg (80-100)
[2021-09-08 19:09] LABS: pH Blood Arterial 6.82 (7.35-7.45)
[2021-09-08 19:40] LABS: Beta-hydroxybutyrate 0.8 mg/dL (0.2-2.8)
[2021-09-08 19:42] LABS: Acetaminophen, Random <2.0 ug/mL (10.0-30.0); Salicylate <1.7 mg/dL (2.8-20.0)
--- NOTE | 2021-09-08 21:00 | NUR ---
ASSUMED CARE AT 1900 DR MASON AT BEDSIDE PROVIDING VERBAL ORDERS, CHARGE NURSE JEN ENTERING ORDERS WHEN SHIFT CHANGE OCCURED. PT IS INTUBATED WITH VENT SETTINGS AC 16, TV 550, PEEP 5, FIO2 30%; NO SECREATIONS FROM ETT AT THIS TIME. NO SEDATION IN PLACE; PT IS NOT REACTIVE TO PAINFUL STIMULI, NO GAG, NO COUGH, PUPILS SLUGGISH BUT EQUAL; PLANTAR REFLEX NEGATIVE. HR IRREGULAR 100-140'S. SBP 100-120'S; VASOPRESSING INFUSING AT 0.04UNITS/MIN; LEVOPHED INFUSING AT 20MCG/MIN; SEE FLOW SHEET FOR TITRATION. OG IN PLACE AND CLAMPED; ABD MODERATLY DISTENDED AND SOFT. PERKINS IN PLACE AND PRODUCING VERY LITTLE URINE, 5ML OF URINE IN 3HRS; PLAN TO SEND UA WHEN AVAILABLE. OVERALL VERY DIRTY WITH AN ODOR; EXCORIATION NOTED BETWEEN UPPER THIGHS; MOTTLING NOTED TO KNEES. SODIUM BICARB INFUSING AT 150ML/HR. KCL, CALCIUM CHLORIDE, AND ZOSYN. SEE SHIFT ASSESSMENT FOR FULL ASSESSMENT. NEW ORDERS PROVIDED FOR CHEST CT WITHOUT CONTRAST. PT TRANSPORTED TO CT AT 2039 VIA ICU BED WITH THIS RN, PCT, AND RT.
[2021-09-09 00:23] LABS: Source, Urine Catheter
[2021-09-09 00:27] LABS: Blood, Urine 5+ (Neg); Glucose Qualitative, Urine 3+ (Neg); Ketones, Urine Neg (Neg); Leukocyte Esterase, Urine 1+ (Neg); Nitrite, Urine Pos (Neg); Protein, Urine 4+ (Neg); Specific Gravity, Urine 1.025 (1.003-1.022); Urobilinogen, Urine 2+ (Normal)
[2021-09-09 00:38] LABS: Appearance, Urine Hazy (Clear); Bilirubin, Urine 2+ (Neg); Color, Urine Amber (P-Yellow); U Amphetamine Screen Not Detected; U Barbituate Screen Not Detected; U Benzodiazapine Screen Not Detected; U Buprenorphine Screen Not Detected; U Cannabinoids Screen Not Detected; U Cocaine Screen Not Detected; U Methadone Screen Not Detected; U Methamphetamine Screen Not Detected; U Opiates Screen Not Detected; U Oxycodone Screen Not Detected; U Phencyclidine Screen Not Detected; U Propoxyphene Screen Not Detected
--- NOTE | 2021-09-09 00:39 | NUR ---
0000 UPDATE PT CONT TO NOT BE REACTIVE TO ANY STIMULI. DR ROSENBAUM CALLED WITH IONIZED CALCIUM LAB OF 0.89, NEW ORDERS PROVIDED FOR 2 ADDITIONAL AMPS OF CALCIUM CHLORIDE. PLAN TO DRAW POTASSIUM LAB IN 30MIN. HR INCREASED TO 120-150'S; NEOSYNEPHRINE STARTED DUE TO HR; PLAN TO TITRATE ANGÉLICA UP AND LEVOPHED DOWN; SEE FLOWSHEET FOR TITIRATION. BARE WARMING BLANKET CONT TO BE IN PLACE. IO REMOVED FROM RT SHOULDER. UA SENT.
[2021-09-09 00:43] LABS: Amorphous Mod (0-Heavy); Bacteria Mod /hpf; Squamous Epithelial Cells Rare /hpf (Few); White Blood Cells, Urine 0-2 /hpf (0-5)
[2021-09-09 00:46] LABS: Other Crystals Many /hpf
--- NOTE | 2021-09-09 01:51 | NUR ---
UPDATE PT POTASSIUM LAB 2.[address] MASON CALLED AND PROVIDED ORDERS FOR ANOTHER 60MEQ OF KCL IV.
--- NOTE | 2021-09-09 03:40 | NUR ---
UPDATE PT IS WEAKLY RESPONSIVE TO VERBAL STIMULI. PT ABLE TO OPEN EYES ON COMMAND, ANSWER Y/N QUESTIONS WITH HEAD NOD, AND ATTEMPTED TO SQUEEZE HANDS WHEN ASKED. PT ANSWERED NO TO PAIN. RESTRAINTS REAPPLIED.
[2021-09-09 04:54] LABS: PCO2 Arterial 32.7 mmHg (35-45); PO2 Arterial 89.5 mmHg (80-100); pH Blood Arterial 7.13 (7.35-7.45)
[2021-09-09 04:56] LABS: Hematocrit 31.5 % (37.0-53.0); Hemoglobin 10.1 g/dL (13.5-17.5); Mean Corpuscular HGB 31.7 pg (26.0-34.0); Mean Corpuscular HGB Conc 32.1 g/dL (31.5-36.5); Mean Platelet Volume 10.2 fL (9.1-12.4); NRBC ABSOLUTE 0.22 K/mm3 (0.00-0.02); NRBC Auto 0.9 /100 WBC (0.0-0.2); Platelet Count 172 K/mm3 (150-400); RDW Standard Deviation 87.5 fL (35.1-46.3); Red Blood Cell Count 3.19 M/mm3 (4.30-5.90); White Blood Cell Count 24.35 K/mm3 (4.00-11.30)
[2021-09-09 05:03] LABS: Mean Corpuscular Volume 99 fL (80-100)
[2021-09-09 05:24] LABS: BAND PERCENT MAN 16 % (0-8); BASOPHILS PERCENT MAN 0 % (0-2); EOSINOPHILS PERCENT MAN 0 % (0-6); LYMPHOCYTES ABSOLUTE MAN 2.92 K/mm3 (0.84-5.20); LYMPHOCYTES PERCENT MAN 12 % (21-46); METAMYELOCYTE ABSOLUTE MAN 0.24 K/mm3 (0.00-0.00); METAMYELOCYTE PERCENT MAN 1 % (0-0); MONOCYTES ABSOLUTE MAN 1.21 K/mm3 (0.16-1.47); MONOCYTES PERCENT MAN 5 % (4-13); NEUTROPHILS ABSOLUTE MAN 19.96 K/mm3 (1.96-9.15); SEG NEUTROPHILS PERCENT MAN 66 % (41-73); TOTAL CELLS COUNTED 100
[2021-09-09 05:35] LABS: Magnesium, Blood 1.3 mg/dL (1.6-2.4)
[2021-09-09 05:36] LABS: Albumin, Blood 1.4 g/dL (3.4-5.0); Albumin/Globulin Ratio 0.3 (0.8-1.8); Bilirubin, Total 4.9 mg/dL (0.1-1.0); Calcium, Blood 7.8 mg/dL (8.5-10.1); Globulin, Blood 4.8 g/dL (2.2-4.0); Phosphorus, Blood 7.8 mg/dL (2.5-4.9); Potassium, Blood 2.1 mmol/L (3.5-5.5); Total Protein, Blood 6.2 g/dL (6.4-8.2)
--- NOTE | 2021-09-09 06:20 | NUR ---
END OF SHIFT SUMMARY PT CONT TO BE INTUBATED WITH VENT SETTINGS AC 16/550/5/30%; SCANT AMOUNT OF SECREATIONS FROM ETT; PT TOLERATING VENT WELL AND IS NOT SEDATED. PT IS MORE AWAKE NOW AND RESPONSIVE TO VERBAL STIMULI; HE IS ABLE TO ANSWER Y/N QUESTIONS AND IS MINIMALLY MOVING HEAD AND EXTREMITIES; WEAK COUGH NOTED, NO GAG. TEMP STAYED BETWEEN 33-36 DEGREES CELCIUS, TEMP NOW 95.3 DEGREES FAHRENHEIT; RAY WARMER REMOVED. PT NODS NO TO PAIN. HR SINCE BEING MORE RESPONSIVE IS 120-150'S; AFIB NOTED. SBP 90-110; VASOPRESSIN INFUSING AT 0.04UNITS/MIN; LEVOPHED INFUSING AT 5MCG/MIN; NEOSYNEPHRINE INFUSING AT 120MCG/MIN. ABD CONT TO BE MODERATLY DISTENDED. PERKINS IN PLACE AND PRODUCED 50ML OF URINE ALL SHIFT. KCL INFUSING AT 50ML/HR. WILL REPORT TO AM RN WHEN AVAILABLE.
--- NOTE | 2021-09-09 07:15 | NUR ---
ASSUMPTION OF CARE PT REMAINS INTUBATED, SWITCHED TO SPONT AT APPROX 0630 WITH PEEP 5, PS 7, AND FIO2 30%. PT TOLERATING WELL. PT AWAKE, TRACKS MOVEMENTS AND FOLLOW COMMANDS. PT NODS/SHAKES HEAD TO ANSWER QUESTIONS. PT RECEIVING LEVOPHED 3MCG/MIN, NEOSYNEPHRINE 120MCG/MIN, VASOPRESSION 0.04UNITS/MIN, AND SODIUM BICARB. PT ALSO RECEIVING SUPPLEMENTAL KCL. PERKINS REMAINS IN PLACE WITH SMALL AMOUNT OF DARK YELLOW URINE. CORE TEMP 95.4F. POSSIBLE PLAN TO EXTUBATE THIS AM.
--- NOTE | 2021-09-09 08:30 | NUR ---
EXTUBATION DR MASON AT BEDSIDE FOR EVAL AND INITIATES PLAN TO EXTUBATE. RT IN ROOM. EXPLAINED PROCEDURE TO PT, PT AGREEABLE AND NODS HEAD YES TO UNDERSTANDING. EXTUBATION AT 0834. PT PLACED ON 4L VIA NC, TITRATED TO 6L. SPO2 94% AND REMAINS IN 90S. PT REMAINS ALERT AND FOLLOWING COMMANDS. PT BEGINS SPEAKING PARTICIPATING IN CONVERSATION. PT REQUESTS FOOD AND WATER, EXPLAINED WE MUST ENSURE HIS ABILITY TO SAFELY SWALLOW. PT DENIES PAIN. MULTIPLE HOSPITALISTS AT BEDSIDE POST-EXTUBATION. PT ANSWERS THEIR QUESTIONS AND REMAINS COOPERATIVE. PT CONTINUES TO RECEIVE MEDICATIONS PREVIOUSLY LISTED IN ASSUMPTION OF CARE.
--- NOTE | 2021-09-09 10:52 | NUR ---
Echocardiogram completed.
[2021-09-09 11:16] LABS: Magnesium, Blood 1.4 mg/dL (1.6-2.4)
[2021-09-09 11:18] LABS: Albumin, Blood 1.4 g/dL (3.4-5.0); Albumin/Globulin Ratio 0.3 (0.8-1.8); Bilirubin, Total 5.2 mg/dL (0.1-1.0); Bun/Creatinine Ratio 9.9 (12.0-20.0); Calcium, Blood 8.8 mg/dL (8.5-10.1); Creatinine, Blood 2.12 mg/dL (0.60-1.20); Globulin, Blood 4.9 g/dL (2.2-4.0); Potassium, Blood 2.6 mmol/L (3.5-5.5); Total Protein, Blood 6.3 g/dL (6.4-8.2)
[2021-09-09 11:34] LABS: Potassium, Blood 2.6 mmol/L (3.5-5.5)
--- NOTE | 2021-09-09 12:29 | NUR ---
Patient passed bedside swallow eval. Tolerating clear liquids well. Dr Downs updated. Provider stated plan to start PO cardizem for afib RVR. HR currently 115-130. BP stable with 120 mcg/min neosynephrine, 2 mcg/min levophed, vasopressin. This RN placed call to daughter Lashay, to update. Daughter was not aware that patient was in hospital. This RN gave brief overview of pt's hospitalization and asked daughter to come in during visiting hours to talk to the doctor. DaughterLashay ([phone]) plans to come in today.
[2021-09-09 13:07] LABS: International Normalized Ratio 2.8; Prothrombin Time Results 27.5 Sec (9.7-11.5)
--- NOTE | 2021-09-09 13:30 | NUR ---
Pt has increased slurred speech. Dr Downs notified. Patient has equal fitness floor attendant bilateral. Equal pupils, reactive to light. A&O x 4. No facial droop. Moves all extremities equally. Asked pt to stick tongue out. Blood to area on right tongue. Tongue not swollen.
--- NOTE | 2021-09-09 15:30 | NUR ---
Pt's daughter at bedside. Inquired pt and daughter about health history. Pt is poor historian, stating "no" when when asked if he has liver disease. Daughter at bedside assists with pt's history as able, however states pt does not share all his health problems with her and she was not aware of his most recent hospitalization prior to this one. Patient does reassure that he staff sharing his health information with his daughter, however. Patient's daughter states that he lives in an apartment, alone. He is mostly independent and does not have a caregiver or anyone that assists with ADLs. Patient states that he mobilizes with cane/walker. He does his own grocery shopping and meal prep. Patient denies tobacco, drugs. States he quit drinking, duration varies from "two weeks" to "a month ago".
[2021-09-09 15:57] LABS: Bun/Creatinine Ratio 8.6 (12.0-20.0); Calcium, Blood 7.8 mg/dL (8.5-10.1); Creatinine, Blood 2.45 mg/dL (0.60-1.20); Magnesium, Blood 1.6 mg/dL (1.6-2.4); Potassium, Blood 2.9 mmol/L (3.5-5.5)
[2021-09-09 16:26] LABS: Phosphorus, Blood 8.9 mg/dL (2.5-4.9)
--- NOTE | 2021-09-09 17:00 | NUR ---
Call placed to Dr Downs to notify of critical lab value and ionized calcium. Discussed current HR, and that patient struggled to swallow 1600 dose of cardizem. Pt strict NPO at this time, plan to control HR with IV drip cardizem. Pt stated that he is "supposed to" wear CPAP. Plan for patient to wear CPAP while sleeping.
--- NOTE | 2021-09-09 18:29 | NUR ---
SUMMARY Neuro: A&O x 4. Pt lethargic, but able to recall education provided to him earlier. When asked why he his in the hospital, he states "my heart stopped", when asked how long his heart was stopped for, he stated "9 minutes". Pt's speech remains slurred, however strength is equal bilateral, no facial droop. Pt has lesion to right tongue that resembles bite. Pt answers questions, follows commands, and verbalizes needs. Pt is pleasant and cooperative with care. Pt has been more lethargic since he received ativan this afternoon for anxiety. Passed bedside swallow, however last few times he was provided water, he coughed afterwards. Strict NPO at this time. Musculoskeletal: Pt did not get out of bed this shift, he assists with left/right repositioning. Pt does occasionally state pain to right arm, between shoulder and elbow. Pt previously had IO to this site. Respiratory: Pt on 4 LPM NC. Lungs dim t/o, occasional wheeze to ELSY. Cough nonproductive. Extubated early this AM. Cardiac: Afib with RVR. PO cardizem started and then increased frequency. This did not help lower HR. Cardizem drip started. Pt remains on pressors. Levophed 5 mcg/min. Neosynephrine 120 mcg/min. Vasopressin remains on. GI: Strict NPO. Pt has had one BM this shift. Unable to collect specimen because liquid absorbed into protective DryFlow beneath. Liquid, with brown mucuous. : 33 mL of dark urine output from lowe. Skin: Unchanged from initial assessment. Psych: Pt reported anxiety, but no additional since ativan given. Visited with daughter at bedside for approx 1.5 hours.
--- NOTE | 2021-09-09 22:25 | NUR ---
ASSUMED CARE AT 1900 PT LAYING IN BED DURING SHIFT CHANGE. PT IS LESS ALERT AND ORIENTED THAN EARLIER; ORIENTED TO SELF BUT NOT PLACE OR TIEM; FOLLOWING DIRECTIONS WEAKLY; APPEARS RESTLESS; STARTING TO PICK AT LEADS AND LINES; PRN ATIVAN GIVEN AND PT REPOSITIONED. PT C/O 03/01 ABD PAIN, DR ROSENBAUM CALLED AND PROVIDED ORDERS FOR 1MG DILAUDID Q4-6HRS PRN AND TO NOT EXCEED 4 DOSES BEFORE CONTACTING MD. DILAUDID GIVEN AND PAIN NOW 01/30; PT LESS RESTLESS NOW. PT ROTATING BETWEEN 5LNC AND CPAP WITH 4L BLEED IN TO KEEP SPO2 >90%. AFIB NOTED WITH HR 80-120'S. SBP 80-110; MAP >65; CARDIZEM INFUSING AT 10MG/HR; LEVOPHED INFUSING AT 8MCG/MIN; NEOSYNEPHRINE INFUSING AT 130MCG/MIN; VASOPRESSIN INFUSING AT 0.04UNITS/MIN; EXTREMITIES COLD; TEMP READING 95.2 DEGREES F; RAY HUGGER REAPPLIED. ABD MODERATLY DISTENDED AND TENDER. PERKINS IN PLACE AND DRAINING VERY LITTLE URINE. BICARB INFUSING AT 150ML/HR. CENTRAL LINE TO RT SUBCLAVIAN DRESSING TO BE CHANGED THIS SHIFT. SEE SHIFT ASSESSMENT FOR FULL ASSESSMENT.
[2021-09-10 03:44] LABS: PCO2 Arterial 22.8 mmHg (35-45); PO2 Arterial 92.8 mmHg (80-100); pH Blood Arterial 6.81 (7.35-7.45)
[2021-09-10 03:49] LABS: Hematocrit 28.7 % (37.0-53.0); Hemoglobin 8.2 g/dL (13.5-17.5); Mean Corpuscular HGB 31.5 pg (26.0-34.0); Mean Corpuscular HGB Conc 28.6 g/dL (31.5-36.5); Mean Platelet Volume 12.3 fL (9.1-12.4); Platelet Count 120 K/mm3 (150-400); RDW Coefficient Variation 25.2 % (11.7-14.2)
[2021-09-10 03:54] LABS: Mean Corpuscular Volume 110 fL (80-100)
[2021-09-10 04:06] LABS: International Normalized Ratio 3.45; Prothrombin Time Results 33.4 Sec (9.7-11.5)
--- NOTE | 2021-09-10 04:30 | NUR ---
UPDATE CHALLENGING TO MAINTAIN PT BP WITH SBP >70 AND MAP >65. CONT TITRATION UP OF LEVOPHED AND NEOSYNEPHRINE. LEVOPHED NOW INFUSING AT 25MCG/MIN, AND NEOSYNEPHRINE INFUSING AT 200MCG/MIN. PT ALSO LESS RESPONSIVE NOW TO VERBAL STIMULI THAN BEFORE AND IS NOW A AN COLOR. ABG DRAWN AND PT pH 6.81. DR MASON CALLED IMMEDIATLY AND PROVIDED SEVERAL ORDERS INCLUDING ADDING SEVERAL ADD ON LABS, BOLUS 1L OF LR, INCREASE BICARB INFUSION TO 200ML/HR, AND GIVE 2 AMPS OF SODIUM BICARB 15MIN APART. ALSO INSTRUCTED TO GIVE DR SMALLWOOD A CALL AND THAT DR MASON WILL BE IN. DR SMALLWOOD CALLED AT 0400.
[2021-09-10 04:46] LABS: NRBC ABSOLUTE 0.23 K/mm3 (0.00-0.02); NRBC Auto 0.9 /100 WBC (0.0-0.2)
[2021-09-10 04:51] LABS: Albumin, Blood 1.2 g/dL (3.4-5.0); Albumin/Globulin Ratio 0.3 (0.8-1.8); Bilirubin, Total 4.1 mg/dL (0.1-1.0); Bun/Creatinine Ratio 7.1 (12.0-20.0); Calcium, Blood 8.2 mg/dL (8.5-10.1); Creatinine, Blood 2.97 mg/dL (0.60-1.20); Globulin, Blood 4.1 g/dL (2.2-4.0); Potassium, Blood 4.4 mmol/L (3.5-5.5); Total Protein, Blood 5.3 g/dL (6.4-8.2)
[2021-09-10 05:46] LABS: BAND PERCENT MAN 15 % (0-8); BASOPHILS ABSOLUTE MAN 0.26 K/mm3 (0.00-0.23); BASOPHILS PERCENT MAN 1 % (0-2); EOSINOPHILS PERCENT MAN 0 % (0-6); LYMPHOCYTES ABSOLUTE MAN 6.55 K/mm3 (0.84-5.20); LYMPHOCYTES PERCENT MAN 25 % (21-46); MONOCYTES PERCENT MAN 0 % (4-13); NEUTROPHILS ABSOLUTE MAN 19.38 K/mm3 (1.96-9.15); SEG NEUTROPHILS PERCENT MAN 59 % (41-73); TOTAL CELLS COUNTED 100
[2021-09-10 06:00] LABS: PCO2 Arterial 21.3 mmHg (35-45); PO2 Arterial 219 mmHg (80-100); pH Blood Arterial 6.83 (7.35-7.45)
--- NOTE | 2021-09-10 06:31 | NUR ---
UPDATE/INTUBATION/END OF SHIFT SUMMARY DR MASON ARRIVED TO UNIT AND PLACED DIALYSIS CATHETER TO RT IJ. DURING INSERTION IT WAS FOUND THAT THE SUBCLAVIAN CENTRAL LINE WAS LEAKING AND THAT THEIR WAS SWELLING RT SIDE OF NECK. EACH PORT CHECKED FOR BLOOD DRAW; ONLY THE DISTAL PORT DRAWS BLOOD; DR MASON PROVIDED ORDERS TO ONLY USE THE BROWN DISTAL PORT FROM SUBCLAVIAN CENTRAL LINE. ALSO DURING INSERTION OF DIALYSIS CATHETER PT BECAME RESP UNSTABLE AND NEEDING INTUBATION AGAIN. INTUBATION OCCURED AT 0513 WITH 8.0 ETT AND 25CM AT TEETH. VENT SETTINGS NOW AC/PC 24, 15/5, FIO2 70%. PT NOT RESPONSIVE WHEN BEFORE INTUBATION; NO SEDATION AT THIS TIME. ALL PRESSORS INFUSING THOUGH CENTRAL LINE PORT ON DIALYSIS CATH. VASOPRESSIN INFUSING AT 0.04UNITS/MIN; LEVOPHED INFUSING AT 25MCG/MIN; NEOSYNEPHRINE INFUSING AT 200MCG/MIN. SBP 80-100, HR 80-120. OG INSERTED AND APPROVED FOR USE, SET TO LIS; ABD MODERATLY DISTENDED. PERKINS IN PLACE AND 50ML OF URINE OUTPUT THIS SHIFT. INCREASED MOTTLING TO BLE; PT CONT TO LOOK ASHY. BICARB INFUSING AT 200ML/HR. HIGHEST TEMPERATURE 97.7 WITH RAY HUGGER BEFORE DIALYSIS CATH INSERTED. DR SELIN MACDONALD OF SITUATION. WILL REPORT TO AM RN WHEN AVAILABLE.
[2021-09-10 07:09] LABS: HBSAG SCREEN Negative (Negative); HEP A AB, IGM Negative (Negative); HEP B CORE AB, IGM Negative (Negative); HEP C VIRUS AB 0.1 (0.0-0.9)
--- NOTE | 2021-09-10 07:10 | NUR ---
ASSUMPTION OF CARE PT RE-INTUBATED THIS AM. VENT SETTINGS AC/PC RATE 24, PI 15, PEEP 5, AND FIO2 70%. PT RECEIVING SODIUM BICARB 200ML/HR, VASOPRESSIN 0.04UNITS/MIN, LEVOPHED 25MCG/MIN, NEOSYNEPHRINE 200MCG/MIN. PT GRIMACES TO PAINFUL STIMULI, DOES NOT FOLLOW COMMANDS. GAG PRESENT. DIALYSIS CATH PLACED THIS AM, PLAN FOR DIALYSIS. DIALYSIS STAFF NOTIFIED. PERKINS REMAINS IN PLACE. OGT CONNECTED TO LOW INT SUCTION, IMMEDIATE DRAINAGE OF APPROX 200ML BROWN/PINK LIQUID. DR SMALLWOOD AT BEDSIDE FOR EVAL, CONFIRMS PLAN FOR DIALYSIS. MULTIPLE HOSPITALISTS ROUNDING AND UPDATED ON PT'S CONDITION. NO ADDITIONAL ORDERS AT THIS TIME. SEE SHIFT ASSESSMENT.
--- NOTE | 2021-09-10 08:30 | NUR ---
This RN placed call to patient's daughter to update on changes that occured overnight. Daughter states understanding and plans to visit patient today.
--- NOTE | 2021-09-10 08:45 | NUR ---
Patient is dusky t/o. Unable to obtain SpO2 measurement with finger, toe, earlobe, or forehead probe. Dr Watts notified. Plan to spot check and obtain reading if pt's perfusion improves.
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
--- NOTE | 2021-09-10 09:46 | NUR ---
Case conference with ICU hot car charger, bedside RN and Dr Watts re: events of past 24 hours [address] status[address] Watts attempted to call Benji to discuss advanced care planning, concerns, code status. NO answer at that time. Bedside RN has given benji some update earlier this am. [facility] to remain available to assist as able.
--- NOTE | 2021-09-10 11:00 | NUR ---
Pt required epinephrine to maintain stable BP during dialysis. Per Dr Watts, neosynephrine not to exceed 200 mcg/min and epinephrine not to exceed 10 mcg/min for this patient.
[2021-09-10 14:08] LABS: Base Excess Venous -27.8 mmol/L; Bicarbonate Venous 5.8 mmol/L (24.0-30.0); PCO2 Venous 31.4 mmHg (38-42); pH Blood Venous 6.87 (7.34-7.37)
[2021-09-10 14:54] LABS: Albumin, Blood 0.9 g/dL (3.4-5.0); Anion Gap 37 mmol/L (6-16); Blood Urea Nitrogen 13 mg/dL (8-24); CO2, Blood 8 mmol/L (21-32); Calcium, Blood 7.2 mg/dL (8.5-10.1); Chloride, Blood 95 mmol/L (98-108); Creatinine, Blood 2.15 mg/dL (0.60-1.20); Glomerular Filtration Rate 31 (60-); Glucose, Blood 235 mg/dL (70-99); Phosphorus, Blood 8.4 mg/dL (2.5-4.9); Potassium, Blood 3.3 mmol/L (3.5-5.5); Sodium, Blood 140 mmol/L (136-145)
--- NOTE | 2021-09-10 15:00 | NUR ---
Call placed to Dr Latham to notify of all renal panel results.
--- NOTE | 2021-09-10 16:30 | NUR ---
Family at bedside. States plan for patient is to continue with full treatment. States they are not ready to make any big decisions until tomorrow. Questions answered to satisfaction.
--- NOTE | 2021-09-10 18:50 | NUR ---
SHIFT SUMMARY Neuro: Pt has been off sedation since mid-dialysis. Pt did receive one dose of morphine 2 mg for ventilator tolerance. Pt does not open eyes to stimulus. Grimaces to pain, however does not withdraw extremities. 3 mm pupils, sluggish response to light. Round and equal bilateral. Temp 95F- warm blankets given. Susan Hugger not available at this time. Gag reflex present. Musculoskeletal: Requires full assistance with ADLs, unable to reposition independently. Rare movement noted BUE and BLE, not purposeful. Respiratory: 8.0 cm ETT, 25 cm at lip. Vent settings AC/PC rate 24, PI- 15, PEEP 5, FiO2 40%. SpO2 unable to obtain due to poor peripheral circulation. Compliant with ventilator at this time. Lungs coarse t/o. No sputum suctioned from ETT. No cough reflex. Cardiac: Atrial fibrillation per monitor. Irregular heart sounds. Rate 95-115. Requiring 30 mcg/min levophed, 200 mcg/min neosynephrine, 10 mcg/min epinephrine, 0.04 units/min vasopressin. Per Dr Watts, neosynephrine and epinephrine not to be titrated higher than these values. Pt is edematous BUE, BLE, torso, nonpitting. Fluid balance 24 L over. 9.8 kg weight gain since admit. Pt generally dusky in appearance. Ischemic appearance to fingers, toes, and tip of penis. Purple with progressing waxy white skin quality to these areas. GI: Absent BT. Abd severely distended. Soft to palpation. OG tube to LIS with 350 mL output this shift. No BM this shift. : Pt received hemodialysis today. No fluid removed with hemodialysis. 10 mL urine output from lowe catheter today. Skin: Excoriations, scabs, red areas as documented in shift assessment. Progressive mottling noted. Psychosocial: Family in to see patient. Daughter, son, and sister visited patient today and participated in discussions that they expected he would enjoy listining to.
--- NOTE | 2021-09-10 21:58 | NUR ---
ASSUMED CARE @1900 PATIENT OPENS EYES TO VERBAL STIMULI, SHAKES HEAD YES/NO. MOVES UPPER EXTREMETIES BUT [employer] ARE WEAK, HANDS VERY SWOLLEN. PUPILS EQUAL AND REACTIVE. BILATERAL SOFT WRIST RESTRAINTS IN PLACE TO PROTECT LINES AND TUBES. UNABLE TO OBTAIN 02 READING DUE TO PATIENTS POOR PERFUSION AND BEING ON 4 PRESSORES. INTUBATED, VENT SETTINGS AC VC 26/550/5/40%. LUNGS SOUNDS COARSE WITH BILATERAL EXPIRATORY WHEEZES. HR A.FIB 90s-110. PULSES FAINT IN UPPER EXTREMETIES AND FOUND WITH DOPPLER IN BLE. PATIENT IS COOL TO THE TOUCH WITH MOTTLING UP TO HIS ARMPIT ON RIGHT SIDE AND MID ABDOMEN ON LEFT SIDE, HANDS ALSO APPEAR MOTTLED. ABDOMEN IS DISTENDED AND FIRM, HYPOACTIVE BOWEL TONES WITH POSSIBLE TYMPANIC TONES IN UPPER ABDOMEN. BROWN DRAINAGE SUCTIONED FROM OG TUBE. MINIMAL OUTPUT FROM PERKINS, SUZE COLOR. REPOSITIONED PATIENT. SEE SHIFT ASSESSMENT FOR MORE DETAIL.
[2021-09-11 04:17] LABS: Hematocrit 23.1 % (37.0-53.0); Hemoglobin 6.5 g/dL (13.5-17.5); Mean Corpuscular HGB Conc 28.1 g/dL (31.5-36.5); Mean Corpuscular Volume 110 fL (80-100); Mean Platelet Volume 12.2 fL (9.1-12.4); NRBC ABSOLUTE 0.89 K/mm3 (0.00-0.02); NRBC Auto 5.7 /100 WBC (0.0-0.2); RDW Standard Deviation 101.2 fL (35.1-46.3); White Blood Cell Count 15.66 K/mm3 (4.00-11.30)
[2021-09-11 04:22] LABS: Platelet Count 50 K/mm3 (150-400)
[2021-09-11 04:49] LABS: Magnesium, Blood 1.8 mg/dL (1.6-2.4)
[2021-09-11 04:54] LABS: Alanine Aminotransfer (ALT/SGP 265 U/L (12-78); Albumin, Blood 0.7 g/dL (3.4-5.0); Albumin/Globulin Ratio 0.2 (0.8-1.8); Alk Phos 152 U/L (50-136); Anion Gap 36 mmol/L (6-16); Aspartate Aminotrans (AST/SGOT 5317 U/L (12-37); Bilirubin, Direct 2.9 mg/dL (0.0-0.3); Bilirubin, Indirect 0.7 mg/dL (0.1-0.7); Bilirubin, Total 3.6 mg/dL (0.1-1.0); Blood Urea Nitrogen 12 mg/dL (8-24); Bun/Creatinine Ratio 4.7 (12.0-20.0); CO2, Blood 8 mmol/L (21-32); Calcium, Blood 6.5 mg/dL (8.5-10.1); Chloride, Blood 90 mmol/L (98-108); Creatinine, Blood 2.58 mg/dL (0.60-1.20); Globulin, Blood 2.8 g/dL (2.2-4.0); Glomerular Filtration Rate 25 (60-); Glucose, Blood 204 mg/dL (70-99); Phosphorus, Blood 5.9 mg/dL (2.5-4.9); Potassium, Blood 3.4 mmol/L (3.5-5.5); Sodium, Blood 134 mmol/L (136-145); Total Protein, Blood 3.5 g/dL (6.4-8.2)
[2021-09-11 05:34] LABS: BAND PERCENT MAN 7 % (0-8); BASOPHILS PERCENT MAN 0 % (0-2); EOSINOPHILS PERCENT MAN 0 % (0-6); LYMPHOCYTES ABSOLUTE MAN 5.48 K/mm3 (0.84-5.20); LYMPHOCYTES PERCENT MAN 35 % (21-46); METAMYELOCYTE ABSOLUTE MAN 0.15 K/mm3 (0.00-0.00); METAMYELOCYTE PERCENT MAN 1 % (0-0); MONOCYTES ABSOLUTE MAN 0.78 K/mm3 (0.16-1.47); MONOCYTES PERCENT MAN 5 % (4-13); MYELOCYTE ABSOLUTE MAN 0.46 K/mm3 (0.00-0.00); MYELOCYTE PERCENT MAN 3 % (0-0); NEUTROPHILS ABSOLUTE MAN 8.76 K/mm3 (1.96-9.15); SEG NEUTROPHILS PERCENT MAN 49 % (41-73); TOTAL CELLS COUNTED 100
--- NOTE | 2021-09-11 06:04 | NUR ---
SHIFT SUMMARY PATIENT IS NO LONGER RESPONSIVE TO ANY STIMULI, PUPILS ARE FIXED, GROSS MOTOR MOVEMENT WITH SOME TREMORS. RESTRAINTS REMOVED. LUNG SOUNDS REMAIN COARSE T/O. VENT SETTING UNCHANGED, AC VC 26/550/5/40%, RR 20s. UNABLE TO GET OXYGEN SATURATION READING DUE TO POOR PERFUSION AND PATIENT BEING ON 4 PRESSORS. LEVO 30MCG/MIN, VASO 0.04 UNITS/MIN, EPI 10 MCG/MIN, ANGÉLICA 200 MCG/MIN. SODIUM BICARB INF 200 MLS/HR. MOTTLING IN ALL EXTREMETIES AND UP ABDOMEN TO THE ARMPIT. BP BECOMING MORE HYPOTENSIVE THROUGH THE NIGHT, LAST BP VIA DOPPLER SYSTOLIC 76. PERKINS OUTPUT OF 15 MLS, YELLOW. Q2 HOUR REPOSITIONING, Q4 HOUR ORAL CARE.
--- NOTE | 2021-09-11 06:36 | NUR ---
UPDATE GIVEN TO FAMILY CALL MADE OUT TO DAUGHTER REGARDING PT'S NEUROLOGICAL CHANGES WITH PUPILS FIXED AND DILATED, NO COUGH OR GAG REFLEXES, PT NOT OVER BREATHING THE VENT, AND PT NOT BEING RESPONSIVE ON NO SEDATION. UPDATED ABOUT PT DECLINING WITH VITALS AND INFORMED THEM THAT FAMILY COULD COME IN TO VISIT IF THEY WISH.
--- NOTE | 2021-09-11 07:36 | NUR ---
RECEIVED REPORT FROM STONEY WALKER AT 0700. AT AROUND 0720, PT NOTED TO MIQUEL DOWN AND MONITOR ALARMED. RHYTHM APPEARS TO HAVE WIDENED. PULSE FOUND WITH DOPPLER VIA CAROTID. PT'S RHYTHM CONTINUES TO BE VERY IRREGULAR. DAUGHTER, CHICO, CALLED AND COMING TO PT'S BEDSIDE.
--- NOTE | 2021-09-11 09:10 | NUR ---
ASSUMED CARE OF PT AT 0700 AFTER REPORT FROM STONEY WALKER. PT IS UNRESPONSIVE TO ANY STIMULI AND NOT ON ANY SEDATION AT THIS TIME, PUPILS ARE FIXED. TEMP OF 95.9. VENT SETTINGS AC/VC+ 26/550/5/40%, UNABLE TO OBTAIN SPO2 D/T POOR PERFUSION, LUNGS COARSE T/O. HR IRREGULAR WITH RATE 10-90'S, SPB OF 52 OBTAINED BY DOPPLER. PT IS MOTTLED IN ALL EXTREMITIES AND ABDOMEN. EXCORIATION IN GROIN AND RIGHT THIGH. GTTS: VASO AT 0.04UNITS/ MIN, LEVO 30MCG/MIN, EPI 10MCG/MIN, ANGÉLICA 200MCG/MIN, BICARB AT 200ML/HR. DR. FLORES NOTIFIED OF PT CONDITION AT 0800. PT'S FAMILY AT BEDSIDE AND DECIDED TO PROCEED WITH COMFORT CARE AT 0845, PT EXTUBATED AT 0852, AND PASSED AT 0900. DAUGHTER, CHICO, TOOK PT'S BELONGINGS YESTERDAY. THEY HAVE DECIDED FOR THE PT TO GO TO [facility].
== END 2021-09-11 13:45 | DRG 682 ==
LOC: ER 15:31 → ICUW 18:28
PROVIDERS: Emergency Medicine; Family Medicine; Internal Medicine; Internal Medicine Critical Care Medicine; Internal Medicine Nephrology; ADMIT Internal Medicine
PROC: 3E033XZ Introduction of Vasopressor into Peripheral Vein, Percutaneous Approach (ICD-10-PCS; 2021-09-08)
PROC: 0BH18EZ Insertion of Endotracheal Airway into Trachea, Via Natural or Artificial Opening Endoscopic (ICD-10-PCS; principal; 2021-09-10)
PROC: 05H533Z Insertion of Infusion Device into Right Subclavian Vein, Percutaneous Approach (ICD-10-PCS; 2021-09-10)
PROC: 05HM33Z Insertion of Infusion Device into Right Internal Jugular Vein, Percutaneous Approach (ICD-10-PCS; 2021-09-10)
PROC: 5A1D70Z Performance of Urinary Filtration, Intermittent, Less than 6 Hours Per Day (ICD-10-PCS; 2021-09-10)
PROC: 5A1935Z Respiratory Ventilation, Less than 24 Consecutive Hours (ICD-10-PCS; 2021-09-10)
DX: N17.9 Acute kidney failure, unspecified (principal); J96.02 Acute respiratory failure with hypercapnia; G92.8 Other toxic encephalopathy; J69.0 Pneumonitis due to inhalation of food and vomit; R40.20 Unspecified coma; E87.2 Acidosis; M62.82 Rhabdomyolysis; I48.20 Chronic atrial fibrillation, unspecified; Z68.41 Body mass index [BMI] 40.0-44.9, adult; I10 Essential (primary) hypertension; G89.29 Other chronic pain; Z20.822 Contact with and (suspected) exposure to COVID-19; Z51.5 Encounter for palliative care; M54.9 Dorsalgia, unspecified; K72.90 Hepatic failure, unspecified without coma; K70.9 Alcoholic liver disease, unspecified; E87.6 Hypokalemia; R57.8 Other shock; E66.01 Morbid (severe) obesity due to excess calories; I46.9 Cardiac arrest, cause unspecified; F10.20 Alcohol dependence, uncomplicated; K70.11 Alcoholic hepatitis with ascites; E83.42 Hypomagnesemia; L97.529 Non-pressure chronic ulcer of other part of left foot with unspecified severity; L97.519 Non-pressure chronic ulcer of other part of right foot with unspecified severity; R47.81 Slurred speech; Z96.641 Presence of right artificial hip joint; M19.90 Unspecified osteoarthritis, unspecified site; Z86.718 Personal history of other venous thrombosis and embolism; Z98.890 Other specified postprocedural states; Z78.1 Physical restraint status
CPT/HCPCS: 0241U; 31500; 36415; 36556; 36600; 51702; 70450; 71045; 71250; 76770; 80047; 80048; 80053; 80069; 80074; 81001; 82010; 82140; 82248; 82330; 82375; 82550; 82803; 82947; 83605; 83690; 83735; 84100; 84132; 84484; 85014; 85025; 85610; 85730; 87040; 87070; 87077; 87086; 87186; 87205; 92950; 93005; 93010; 93306; 94002; 94003; 96365; 96366; 96368; 99291-25; A9270; C1751; C1752; C9113; G0480; J0171; J0881; J1170; J1720; J1815; J2060; J2270; J2310; J2370; J2543; J2704; J3411; J3475; J3480; J7030; J7040; J7050; J7060; J7070; J7120